=== PATIENT | male | born 1965 | race Caucasian/White ===

== ENCOUNTER 2019-11-28 19:29 | Emergency (ER) | payer OTHER, SELFPAY ==
[2019-11-28 20:14] VITALS: BP 147/88; PULSE 114; RESP 20; TEMP 39.8; O2SAT 100
--- NOTE | 2019-11-28 20:31 | ED.URI ---
HPI - URI/Sore Throat General Chief Complaint: Upper Respiratory Infection Stated Complaint: cough/fever/chills/body aches Time Seen by Provider: 11/28/19 20:31 Source: patient and RN notes reviewed Mode of arrival: ambulatory Limitations: no limitations History of Present Illness HPI Narrative: 54 year old male presents with concern for fever, chills, body aches, cough that started today. Denies taking any [id number] medications for his symptoms. MD elicited complaint: cough Related Data Home Medications Medication Instructions Recorded Confirmed lansoprazole [Prevacid] 30 mg PO DAILY 11/28/19 11/28/19 Allergies Allergy/AdvReac Type Severity Reaction Status Date / Time No Known Allergies Allergy Verified 11/28/19 20:31 Review of Systems Review of Systems: Narrative: CONSTITUTIONAL: Reports malaise, chills, sweats, or fever. EYES: Denies visual changes, redness, or discharge. ENT: Reports rhinorrhea. Denies congestion, sinus pain, otalgia and sore throat. CARDIOVASCULAR: Denies chest pain, palpitations, or edema. RESPIRATORY: Reports cough. Denies dyspnea. GASTROINTESTINAL: Denies abdominal pain, nausea, vomiting, diarrhea SKIN: Denies rash or itching. MUSCULOSKELETAL: Denies myalgia. NEUROLOGIC: Denies headache. All systems reviewed & are unremarkable except as noted in HPI and below PMFSH Social History Social History Alcohol intake: never Comments At time of signature, agree with nursing past medical, surgical, social and family history. There is no relevant family history pertinent to the presenting complaint Exam Narrative: Exam Narrative: GENERAL: Nontoxic-appearing, well-nourished, and in no acute distress. HEAD: Normocephalic EYES: PERRLA, conjunctivae clear ENT: Nares clear, turbinates erythematous, clear discharge. Mucous membranes moist. TM pearly moss with dull light reflex bilaterally; no tragal tenderness. Oropharynx not erythematous without lesions. Tonsils not enlarged and without exudate, no drooling, no hoarseness, no trismus, uvula midline. NECK: Supple. No lymphadenopathy CHEST: Clear to auscultation, breath sounds equal. No wheezing, rhonchi, rales, or stridor. No respiratory distress, speaks in full sentences. HEART: Regular rate and rhythm. No murmur heard. Normal peripheral pulses. SKIN: Warm, dry, no rash. NEURO: Alert and oriented x3. PSYCH: Normal mood and affect Course Course Emergency Course: Patient is aware of diagnosis, understands and agrees to treatment plan. Anticipatory guidance given. Patient agrees to follow-up as directed and is aware of reasons to seek care at the emergency department. Portions of this record may have been created with voice recognition software Vital Signs Vital signs: Vital Signs Temperature 103.7 F H 11/28/19 20:14 Pulse Rate 114 H 11/28/19 20:14 Respiratory Rate 20 11/28/19 20:14 Blood Pressure 147/88 H 11/28/19 20:14 Pulse Oximetry 100 11/28/19 20:14 Temperature 103.7 F H 11/28/19 20:14 Pulse Rate 114 H 11/28/19 20:14 Respiratory Rate 20 11/28/19 20:14 Blood Pressure 147/88 H 11/28/19 20:14 Pulse Oximetry 100 11/28/19 20:14 Reviewed. MDM - URI/Sore Throat MDM Narrative Medical decision making narrative: Differential diagnosis considered: Strep pharyngitis, allergic rhinitis, upper respiratory tract infection, sinusitis, rhinosinusitis, nasopharyngitis. viral pharyngitis, otitis media, otitis externa, pneumonia, bronchitis, viral cough syndrome, viral syndrome, and influenza. Exam findings show no acute concerns or changes; patient is non-toxic appearing and is in no distress. Patient is appropriate for outpatient treatment and follow-up. Lab Data Attestation: I reviewed the patient's lab results. Labs: Influenza A Screen Negative Reference Range: Negative Influenza B Screen Negative Reference Range: Negative Strep Screen Presumptive Negative
== END 2019-11-28 20:43 | disposition home or self-care (01) ==
PROVIDERS: Emergency Provider Nurse Practitioner
DX: R05 Cough (principal); R50.9 Fever, unspecified; K21.9 Gastro-esophageal reflux disease without esophagitis
CPT/HCPCS: 87081; 87804; 87880; 99213; G0463

== ENCOUNTER 2020-08-28 06:46 | Outpatient (CLI) | payer OTHER, SELFPAY ==
--- NOTE | ~2020-08-28 | MR_ITS ---
EXAMINATION: MR cervical spine wo con DATE: 08/28/2020 07:42 INDICATION: Left arm weakness. Left arm pain. TECHNIQUE: Magnetic resonance imaging (MRI) of the cervical spine was performed without intravenous c ontrast. Sequences included sagittal T2-weighted FSE, sagittal STIR FSE, sagittal T1-weighted FSE, ax ial MERGE, and axial T2-weighted FSE. COMPARISON: Cervical spine MRI 09/17/2014 FINDINGS: Bone alignment is normal. Vertebral body heights are normal. There is mildly decreased disc height at C5-C6. The spinal cord signal intensity is normal. The following disc levels are specifica lly discussed: C2-C3: The disc does not extend beyond the endplate margin. There is no uncovertebral joint osteoarth ritis. There is severe bilateral facet joint osteoarthritis. There is mild bilateral neural foraminal stenosis. There is no central canal stenosis. C3-C4: The disc does not extend beyond the endplate margin. There is mild bilateral uncovertebral annel nt osteoarthritis. There is moderate right and mild left facet joint osteoarthritis. There is mild bi lateral neural foraminal stenosis. There is no central canal stenosis. C4-C5: The disc does not extend beyond the endplate margin. There is no uncovertebral joint osteoarth ritis. There is moderate right and mild left facet joint osteoarthritis. There is moderate neural for aminal stenosis. There is no central canal stenosis. C5-C6: There is a left central extrusion. There is no uncovertebral joint osteoarthritis. There is mi ld bilateral facet joint osteoarthritis. There is mild left neural foraminal stenosis. There is mild central canal stenosis. C6-C7: The disc is bulging. There is mild bilateral uncovertebral joint osteoarthritis. There is no f acet joint osteoarthritis. There is mild bilateral neural foraminal stenosis. There is mild central c anal stenosis. C7-T1: The disc does not extend beyond the endplate margin. There is no uncovertebral joint osteoarth ritis. There is mild bilateral facet joint osteoarthritis. There is no neural foraminal stenosis. The re is no central canal stenosis. IMPRESSION: 1. Mild cervical spondylosis with interval improvement in the extrusion at C5-C6. Reviewed, dictated and finalized at location A. D WASTE LANDFILL TECHNICIAN IMPRESSION: 1. Mild cervical spondylosis with interval improvement in the extrusion at C5-C 6.
== END 2020-08-28 06:47 | disposition home or self-care (01) ==
PROVIDERS: PCP Family Medicine; Visit Provider Family Medicine
DX: R20.2 Paresthesia of skin (principal); M47.813 Spondylosis without myelopathy or radiculopathy, cervicothoracic region; M48.03 Spinal stenosis, cervicothoracic region; R29.898 Other symptoms and signs involving the musculoskeletal system; M79.602 Pain in left arm
CPT/HCPCS: 72141

== ENCOUNTER 2020-11-04 07:30 | Outpatient (RCR) | payer OTHER, SELFPAY ==
--- NOTE | 2020-09-09 10:14 | PTOPEVAL ---
PHYSICAL THERAPY EVALUATION AND PLAN OF CARE Thank you for referring Eric Bautista to [facility].? The patient is scheduled to be seen for therapy? 1x/week for 4weeks. Please review, sign, date and return this plan of care LETA. I agree with and certify that the following plan of care is medically necessary. Referring Physician Date Attending Provider: Ashley Dougherty, PA Evaluation Outpatient Past Medical History Gastrointestinal History Hx Gastroesophageal Reflux Disease Yes Genitourinary History Hx Other Genitourinary Disorders Yes: vasectomy with reversal Diagnosis left lower arm pain and biceps Onset 4-6 months Subjective Information Eric is here today with left Query Text:As Reported By Patient/ lower arm pain. 4-6 months ago Family there was a mechanism of injury. Pain started in the left biceps and progressed down to the lower part of the arm. States that there can be some numbness and tingling in the left fingers while he is typing and he will have to stop typing. He describes a lot of fatigue in the arm when trying to hold anything in the left arm. Reports he does feel like he has a lot of stress right now causing stiffness around his neck and shoulders Diagnostic Tests Other Tests For This Problem Yes: EMG studies all normal Self Report Pain Assessment Left Arm(s) Reported Pain Level 1 Pain Description Aching Pain Frequency Chronic,Continuous Other Pain Description fatigue to the point of having to stop using Greatest Pain Intensity 8 Other Pain Aggravating Factors using the arm Pain Behaviors None Interventions Used Interventions Used By Clinicians Exercise Cervical and Lumbar ROM Cervical ROM Reason Not Measured WFL/Left,WFL/Right Cervical ROM Comments generally WFL ROM, rotation does demonstrate mild limitation with end range that elicits tightness at base of neck. Upper Extremity Range of Motion General Upper Extremity Range of Motion Reason Not Measured WFL/Left,WFL/Right Gross Upper Extremity Range of Motion generally WFL bilateral Comments shoulders with some stiffness at end range. left elbow pronat
--- NOTE | 2020-10-07 08:26 | PTOPEVAL ---
PHYSICAL THERAPY PLAN OF CARE UPDATE AND PROGRESS REPORT Thank you for referring Eric Bautista to [facility].? The patient is scheduled to be seen for therapy?1x/week for 4 weeks. Please review, sign, date and return this plan of care LETA. I agree with and certify that the following plan of care is medically necessary. Referring Physician Date Attending Provider: Ashley Dougherty, PA Progress Diagnosis left lower arm pain and biceps Onset 4-6 months Subjective Information Eric reports that symptoms are Query Text:As Reported By Patient/ better while the pain is Family still there. He states that he is able to hold his daughter twice as long, but will get fatigue in the left arm and he will switch sides. Self Report Pain Assessment Left Arm(s) Reported Pain Level 1 Pain Description Aching Pain Frequency Chronic,Continuous Other Pain Aggravating Factors using the arm Pain Behaviors None Interventions Used Interventions Used By Clinicians Exercise Upper Extremity Range of Motion General Upper Extremity Range of Motion Reason Not Measured WFL/Left,WFL/Right Gross Upper Extremity Range of Motion generally WFL bilateral Comments shoulders with some stiffness at end range. left elbow pronation symtpoms are resolved, but describes some symptoms at left biceps with supination Upper Extremity Muscle Strength Testing Scapular/Shoulder Bilateral Shoulder Flexion Strength 4 Good Shoulder Abduction Strength 4 Good Shoulder Medial Rotation Strength 4+ Good + Shoulder Lateral Rotation Strength 4+ Good + Elbow/Forearm Right Elbow Flexion Strength 5 Normal Elbow Extension Strength 5 Normal Forearm Pronation Strength 5 Normal Forearm Supination Strength 5 Normal Left Elbow Flexion Strength 4+ Good + Elbow Extension Strength 4+ Good + Forearm Pronation Strength 4+ Good + Forearm Supination Strength 4+ Good + Wrist Strength Right Wrist Flexion Strength 5 Normal Wrist Extension Strength 5 Normal Wrist Strength Comments health promotion officer: 105lb/pressure Left Wrist Flexion Strength 4+ Good + Wrist Extension Strength 4+ Good + Wrist Strength Comments health promotion officer: 95lb/pressure Muscle Length Testing Muscle Length Testing Latissmus Dorsi Muscle Length (R) Mild Tightness,(L) Mild Tightness Levaetor Scapulae Muscle Length (R) Mild Tightness,(L) Mild Tightness Supinator M
--- NOTE | 2020-10-21 07:46 | PCPTNOTE ---
Patient called & cancelled scheduled appointment this date. No reason provided on voicemail.
--- NOTE | 2020-11-04 08:18 | PTOPEVAL ---
PHYSICAL THERAPY DISCHARGE NOTE Thank you for referring Eric Bautista to [facility].? Please review, sign, date and return this plan of care LETA. I agree with and certify that the following plan of care is medically necessary. Referring Physician Date Attending Provider: Ashley Dougherty, PA Discharge Diagnosis left lower arm pain and biceps Onset 4-6 months Subjective Information Eric reports that he is doing Query Text:As Reported By Patient/ very well. He uses his HEP Family well and is independent with the HEP. Self Report Pain Assessment Left Arm(s) Reported Pain Level 0 Interventions Used Interventions Used By Clinicians Exercise,Manual Therapy Techniques Upper Extremity Range of Motion General Upper Extremity Range of Motion Reason Not Measured WFL/Left,WFL/Right Gross Upper Extremity Range of Motion generally WFL bilateral Comments shoulders with some stiffness at end range. left elbow pronation symtpoms are resolved, but describes some symptoms at left biceps with supination at very end range Upper Extremity Muscle Strength Testing Scapular/Shoulder Bilateral Shoulder Flexion Strength 5 Normal Shoulder Abduction Strength 5 Normal Shoulder Medial Rotation Strength 5 Normal Shoulder Lateral Rotation Strength 5 Normal Shoulder Strength Comments left shoulder abduction: 4+/5 Elbow/Forearm Right Elbow Flexion Strength 5 Normal Elbow Extension Strength 5 Normal Forearm Pronation Strength 5 Normal Forearm Supination Strength 5 Normal Left Elbow Flexion Strength 5 Normal Elbow Extension Strength 5 Normal Forearm Pronation Strength 5 Normal Forearm Supination Strength 5 Normal Wrist Strength Right Wrist Flexion Strength 5 Normal Wrist Extension Strength 5 Normal Wrist Strength Comments quantitative equity head: 105lb/pressure Left Wrist Flexion Strength 5 Normal Wrist Extension Strength 5 Normal Wrist Strength Comments quantitative equity head: 95lb/pressure PT Clinical Summary Eric is a 54 yo male presenting to outpatient physical therapy with left arm pain and decreased function. Eric demonstrates normal wrist and quantitative equity head strength for non-dominate side as well as normal ROM. He does have a mild limitation in left supination at very
== END 2020-11-04 11:54 | disposition home or self-care (01) ==
LOC: ANHPT 07:30
PROVIDERS: PCP Family Medicine; Visit Provider Physician Assistant
DX: M54.2 Cervicalgia (principal); M79.602 Pain in left arm; R20.2 Paresthesia of skin; R29.898 Other symptoms and signs involving the musculoskeletal system
CPT/HCPCS: 97110; 97140; 97162

== ENCOUNTER 2021-12-02 15:09 | Outpatient (CLI) | payer OTHER, SELFPAY ==
--- NOTE | ~2021-12-02 | US_ITS ---
EXAMINATION: US soft tissue head and neck DATE: 12/02/2021 15:31 INDICATION: Right-sided nontender neck mass TECHNIQUE: Multiple grayscale and Doppler ultrasound images of the region of concern at the right nec k were obtained. COMPARISON: Cervical spine MR dated 08/28/2020 FINDINGS: 4.0 x 2.9 x 2.3 cm very hypoechoic mass with internal vascularity on color Doppler located along the right jugular chain at the site of a prior normal-sized lymph node which previously measured 9 x 9 mm . There is no evident central fatty hilum. There is a second smaller 14 x 8 x 7 mm hypoechoic lymph n ode which remains within normal limits with small central echogenic hilum abutting the inferior ryan n of the larger mass and which is minimally changed since the prior study at which time it measured 1 2 x 8 mm. IMPRESSION: 1. 4.0 x 2.9 x 2.3 cm mass in the right neck, likely an enlarged jugular chain lymph node which is gonzalez spicious for lymphoma or other metastatic disease. Recommend ultrasound-guided core needle biopsy. Reviewed, dictated and finalized at location A. NT ENGINEER IMPRESSION: 1. 4.0 x 2.9 x 2.3 cm mass in the right neck, likely an enlarged jugular chain lymph node which is suspicious for lymphoma or other metastatic disease. Recomm end ultrasound-guided core needle biopsy.
== END 2021-12-02 15:10 | disposition home or self-care (01) ==
PROVIDERS: PCP Family Medicine; Visit Provider Family Medicine
DX: R22.1 Localized swelling, mass and lump, neck (principal)
CPT/HCPCS: 76536

== ENCOUNTER 2021-12-12 09:03 | Outpatient (CLI) | payer OTHER, SELFPAY ==
--- NOTE | ~2021-12-12 | US_ITS ---
EXAMINATION: US biopsy lymph node DATE: 12/12/2021 10:03 INDICATION: Right cervical lymphadenopathy TECHNIQUE: The procedure including the risks and benefits was discussed with the patient. Risks discu ssed included bleeding and infection. The patient understood the risks and agreed to proceed. The sk in overlying the right neck was prepped and draped in usual sterile fashion. Anesthetic was administ ered with 1% lidocaine subcutaneously. An 18 gauge core biopsy needle was advanced under continuous ultrasound observation to the lesion of interest. 6 core biopsy specimens were obtained, 3 placed in formalin and 4 in RPMI media. The needle was removed and the entry site was cleaned and dressed. P ost procedure ultrasound demonstrated no hemorrhage. FINDINGS: Ultrasound images demonstrate a 3.2 x 3.2 x 2.1 cm diffusely hyperechoic right cervical lym ph node with no discernible central fatty hilum which is suspicious for lymphoma or metastatic diseas e. Subsequent images demonstrate the biopsy needle advanced into the lymph node.. IMPRESSION: 1. Successful Ultrasound-guided biopsy of a 3.2 x 3.2 x 2.1 cm enlarged right cervical lymph node. Reviewed, dictated and finalized at location A. IMPRESSION: 1. Successful Ultrasound-guided biopsy of a 3.2 x 3.2 x 2.1 cm enlarged right c ervical lymph node.
== END 2021-12-12 09:04 | disposition home or self-care (01) ==
LOC: ANHIMG 09:04
PROVIDERS: PCP Family Medicine; Visit Provider Family Medicine
DX: C77.0 Secondary and unspecified malignant neoplasm of lymph nodes of head, face and neck (principal)
CPT/HCPCS: 38505; 76942; 88184; 88185; 88305; 88342

== ENCOUNTER 2022-01-15 22:39 | Emergency (ER) | payer OTHER, SELFPAY ==
[2022-01-15 22:42] VITALS: BP 178/105; PULSE 111; RESP 22; TEMP 36.2; O2SAT 100
--- NOTE | 2022-01-15 22:55 | ED.GENADULT ---
HPI - General Adult General Chief complaint: Unspecified Stated complaint: vomiting blood Time Seen by Provider: 01/15/22 22:48 Source: patient Mode of arrival: ambulatory Limitations: no limitations History of Present Illness HPI narrative: Patient is a 56-year-old male complaining of vomiting blood after he was constipated, strained and felt like there was blood dripping in his throat and when he did spit it was bright red blood. 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 Patient denies any chest pain, shortness of breath, abdominal pain, melena, hematochezia, fever or chills. Surgery was done by Dr. Lee. Related Data Home Medications Medication Instructions Recorded Confirmed amoxicillin-pot clavulanate 1 tablet PO BID 01/15/22 ibuprofen 600 mg PO Q6H PRN 01/15/22 ondansetron [Zofran ODT] 4 mg PO Q8H PRN 01/15/22 oxycodone 5 mg PO Q4H PRN 01/15/22 pantoprazole 40 mg PO QAM 01/15/22 scopolamine base 1 patch TOPICAL Q3D PRN 01/15/22 Allergies Allergy/AdvReac Type Severity Reaction Status Date / Time No Known Allergies Allergy Verified 01/15/22 23:19 Review of Systems Review of Systems: All systems reviewed & are unremarkable except as noted in HPI and below Constitutional: Constitutional: Denies body ache(s), Denies chills, Denies excessive sweating, Denies fatigue, Denies fever(s), Denies headache(s), Denies lethargy, Denies malaise, Denies weakness and Denies weight loss Eyes: Eyes: Denies blurry vision, Denies change in vision and Denies loss of vision ENT: Denies dizziness, Denies ear discharge, Denies headache(s), Denies lip swelling, Denies epistaxis, Denies nasal congestion, Denies neck pain, Denies throat swelling and Denies tongue swelling Cardiovascular: Cardiovascular: Denies chest pain, Denies chest pain at rest, Denies chest pain with activity, Denies diaphoresis, Denies rapid heart rate, Denies edema, Denies irregular heart rhythm, Denies lightheadedness, Denies palpitations, Denies dyspnea and Denies dyspnea on exertion Respiratory: Respiratory: Denies chest congestion, Denies cough, Denies hemoptysis, Denies dyspnea and Denies dyspnea on exertion Gastrointestinal: Gastrointestinal: Denies abdominal pain, Denies melena, Denies hematochezia and Denies diarrhea Musculoskeletal: Musculoskeletal: Denies abnormal gait, Denies deformity, Denies joint swelling, Denies limited range of motion, Denies neck pain and Denies numbness Neurologic: Denies Abnormal speech present, Denies abnormal gait, Denies confusion, Denies dizziness, Denies headache(s), Denies focal weakness, Denies loss of vision, Denies numbness, Denies Other visual disturbances, Denies Sensory deficit (Neuro) and Denies weakness Psychiatric: Psychiatric: Denies confusion, Denies depression, Denies auditory hallucinations, Denies homicidal ideation and Denies suicidal ideation Endocrine: Endocrine: Denies cold intolerance, Denies excessive sweating, Denies fatigue, Denies heat intolerance and Denies palpitations Hematologic/Lymphatic: Hematologic/Lymphatic: Denies easy bleeding and Denies easy bruising Allergic/Immunologic: Allergic/Immunologic: Denies lip swelling, Denies throat swelling and Denies tongue swelling [facility] Social History Social History Alcohol intake: never Comments Past medical history: Head and neck cancer Family history: Unknown Social history: Non-smoker no EtOH or drug use Exam Const: General: cooperative, well developed, alert and awake; No confusion Orientation/consciousness: oriented to person, oriented to place, oriented to time, patient oriented x3 and No confusion Limitations: no limitations Other: Moderate distress HENMT: Head: normal to inspection, normocephalic and atraumatic Ears: hearing grossly normal bilaterally, TM normal on the right and TM normal on the
[2022-01-15 23:10] LABS: Basophils Absolute Auto 0.1 K/mm3 (0.0-0.1); Basophils Percent Auto 0.4 % (0.2-1.2); Eosinophils Absolute Auto 0.2 K/mm3 (0-0.3); Eosinophils Percent Auto 1.4 % (0-4.4); Hematocrit 45.7 % (42.0-52.0); Hemoglobin 14.9 g/dL (14.0-18.0); Immature Granulocyte Absolute 0.33 K/mm3 (0.00-0.031); Immature Granulocyte Percent A 2.3 % (0-0.5); Lymphocytes Absolute Auto 1.59 K/mm3 (0.9-3.2); Mean Corpuscular HGB Conc 32.6 g/dl (32-36); Mean Corpuscular Volume 98.1 fl (80-100); Mean Platelet Volume 9.8 fl (7.4-10.4); Monocytes Absolute Auto 1.1 K/mm3 (0.1-0.6); Monocytes Percent Auto 7.6 % (2.6-8.5); Neutrophils Absolute Auto 11.1 K/mm3 (1.3-6.7); Neutrophils Percent Auto 77.3 % (45.5-73.1); Platelet Count Result 349 k/mm3 (150-375); Red Blood Count 4.66 M/mm3 (4.6-6.20); Red Cell Distribution Width 12.6 % (11.5-14.5); White Blood Count 14.4 K/mm3 (4.5-10.0)
[2022-01-15] MEDS: SODIUM CHLORIDE 0.9% IV 1,000 ML 999 ML IV CONT (23:10)
[2022-01-15 23:14] VITALS: BP 110/86; PULSE 79; RESP 20; O2SAT 98
[2022-01-15 23:28] LABS: Alanine Aminotransferase 69 U/L (4-50); Albumin Level 4.4 g/dL (3.5-5.1); Alkaline Phosphatase 98 U/L (38-126); Anion Gap 7 mmol/L (8-16); Aspartate Amino Transferase 54 U/L (17-59); Bilirubin,Total 0.8 mg/dL (0.2-1.3); Blood Urea Nitrogen 24 mg/dL (9-20); Calcium 8.6 mg/dL (8.4-10.2); Carbon Dioxide 26 mmol/L (22-30); Chloride 101 mmol/L (98-107); Estimated CRCL calculation 98 ml/min; Estimated Glomerular Filt Rate > 60; Glucose 106 mg/dL (65-110); INR 1.1; Potassium 4.7 mmol/L (3.4-5.0); Prothrombin Time 13.6 Seconds (11.1-14.7); Sodium 134 mmol/L (137-145)
[2022-01-15 23:29] LABS: Partial Thromboplastin Time 27.7 SECONDS (22.3-36.8)
[2022-01-15] MEDS: PANTOPRAZOLE SODIUM IV 40 MG VIAL 80 MG IV PUSH (23:30)
[2022-01-15] MEDS: PROMETHAZINE HCL 25 MG/ML AMPUL 12.5 MG IV PUSH (23:35)
[2022-01-16 00:29] VITALS: BP 162/102; PULSE 62; RESP 20; O2SAT 98
[2022-01-16 00:30] VITALS: PULSE 64
[2022-01-16 01:16] VITALS: BP 175/102; PULSE 59; RESP 14; O2SAT 97
[2022-01-16 01:27] VITALS: BP 163/91; PULSE 72; RESP 14; O2SAT 98
== END 2022-01-16 01:46 | disposition short-term general hospital (02) ==
LOC: ANHED 23:37
PROVIDERS: Emergency Provider Emergency Medicine; PCP Family Medicine
DX: K92.0 Hematemesis (principal); C76.0 Malignant neoplasm of head, face and neck
CPT/HCPCS: 36415; 80053; 85025; 85610; 85730; 96361; 96374; 96375; 99285; C9113; J2550; J7030

== ENCOUNTER 2022-08-25 18:39 | Emergency (ER) | payer OTHER, SELFPAY ==
[2022-08-25 18:46] VITALS: BP 120/78; PULSE 98; RESP 20; TEMP 36.6; O2SAT 100
--- NOTE | 2022-08-25 20:03 | ED.URI ---
HPI - URI/Sore Throat General Chief Complaint: Upper Respiratory Infection Stated Complaint: Sore Throat,Congestion Time Seen by Provider: 08/25/22 19:57 Source: patient Mode of arrival: ambulatory Limitations: no limitations History of Present Illness HPI Narrative: Patient presents today complaining of chills, fever up to 101.1, congestion, pressure, itchy throat since yesterday. Currently rates pain 4/10 and has been taking ibuprofen without relief. History of throat cancer and lymph node removal as well as tonsil removal. Related Data Home Medications Medication Instructions Recorded Confirmed pantoprazole 40 mg tablet,delayed 40 mg PO QAM 01/15/22 08/25/22 release Allergies Allergy/AdvReac Type Severity Reaction Status Date / Time No Known Allergies Allergy Verified 08/25/22 18:45 Review of Systems Review of Systems: CONSTITUTIONAL: Denies body aches, or sweats.+ fever, chills EYES: Denies visual changes, redness, or discharge. ENT: Denies rhinorrhea, congestion or otalgia.+ Itchy throat, nasal congestion and sinus pressure CARDIOVASCULAR: Denies chest pain, palpitations, or edema. RESPIRATORY: Denies cough or dyspnea. GASTROINTESTINAL: Denies abdominal pain, nausea, vomiting, or diarrhea. GENITOURINARY: Denies dysuria or hematuria. SKIN: Denies rash, itching, or wounds. MUSCULOSKELETAL: Denies back pain, joint pain, or myalgia. NEUROLOGIC: Denies headache, numbness, tingling, or weakness. PSYCH: Denies depression or anxiety. PMFSH Past Medical History Medical History (Updated 08/25/22 @ 20:06 by Iliana Browning, NCR OPERATOR, ) Throat cancer Surgical History Surgical History (Updated 08/25/22 @ 20:04 by Iliana Browning, NCR OPERATOR, ) Hx of tonsillectomy Social History Social History Alcohol intake: never Comments At time of signature, I have reviewed and agree with nursing past medical, surgical, social and family history unless otherwise noted. Please see nursing chart for further information. There is no relevant family history pertinent to the presenting complaint Exam Narrative: GENERAL: ill-appearing, well-nourished, and in no acute distress. HEAD: Normocephalic, atraumatic. EYES: EOMI. No redness or drainage. Conjunctivae normal. ENT: Mucous membranes pink and moist. Nares congested with rhinorrhea. TMs normal bilaterally. Throat erythematous with mild edema. No exudate. Uvula midline. NECK: Normal AROM. Supple. CHEST: No respiratory distress. Clear to auscultation. HEART: Regular rate and rhythm. No murmur appreciated. Normal peripheral pulses. EXTREMITIES: Normal range of motion. No edema. SKIN: Warm, dry, no rash. Capillary refill normal. Normal skin turgor. NEURO: No focal deficits. Alert and oriented x3. Gait steady. PSYCH: Normal affect. No signs of depression or anxiety. Course Course Level of Care: Express Care Visit Vital Signs Vital signs: Vital Signs Temperature 97.8 F 08/25/22 18:46 Pulse Rate 98 08/25/22 18:46 Respiratory Rate 20 08/25/22 18:46 Blood Pressure 120/78 08/25/22 18:46 Pulse Oximetry 100 08/25/22 18:46 Oxygen Delivery Room Air 08/25/22 18:46 Temperature 97.8 F 08/25/22 18:46 Pulse Rate 98 08/25/22 18:46 Respiratory Rate 20 08/25/22 18:46 Blood Pressure 120/78 08/25/22 18:46 Pulse Oximetry 100 08/25/22 18:46 Oxygen Delivery Room Air 08/25/22 18:46 reviewed MDM - URI/Sore Throat Differential Diagnosis Differential diagnosis: Likely upper respiratory infection, sinusitis, viral infection, influenza, pharyngitis and other ( strep throat) Lab Data Attestation: I reviewed the patient's lab results. Labs: Influenza A Screen Negative Reference Range: Negative Influenza B Screen Negative Reference Range: Negat
== END 2022-08-25 20:08 | disposition home or self-care (01) ==
PROVIDERS: Emergency Provider Nurse Practitioner; PCP Family Medicine
DX: J02.0 Streptococcal pharyngitis (principal)
CPT/HCPCS: 87804; 87880; 99213; G0463

== ENCOUNTER 2023-01-27 19:24 | Emergency (ER) | payer OTHER, SELFPAY ==
--- NOTE | ~2023-01-27 | XR_ITS ---
EXAMINATION: XR chest 2V Exam Date/Time: 01/27/2023 19:45 CDT HISTORY: cough, congestion 5x days non smoker hx asthma Comparison: 10/31/2015. RESULT: Lines, tubes, and devices: Surgical clips in the right lower neck. Lungs and pleura: Streaky perihilar opacities with cuffing. Cardiomediastinal silhouette: Stable. Other: No acute osseous or upper abdominal finding. IMPRESSION: Pulmonary opacities may represent bronchiolitis, as can be seen with atypical infection, asthma, aspi ration, and small airways disease. Reviewed, dictated and finalized at location [facility]. IMPRESSION: Pulmonary opacities may represent bronchiolitis, as can be seen with atypical i nfection, asthma, aspiration, and small airways disease.
[2023-01-27 19:35] VITALS: BP 148/89; PULSE 66; RESP 18; TEMP 36.1; O2SAT 99
--- NOTE | 2023-01-27 19:43 | ED.URI ---
HPI - URI/Sore Throat General Chief Complaint: Upper Respiratory Infection Stated Complaint: congestion,cough Time Seen by Provider: 01/27/23 19:44 Source: patient Mode of arrival: ambulatory Limitations: no limitations History of Present Illness HPI Narrative: Patient is a 57-year-old male that presents with cough, congestion, fatigue, fever and chills for 5 days. Reports cough has been productive. Also reports coughing fits where it is hard for him to take a deep breath in between coughing. Patient has been taking a daily Claritin and Motrin for fever. States he has seasonal allergies but they were never this bad. Reports children have similar symptoms. History of throat cancer, lymph nodes on right side of neck removed along with back of tongue. Did not receive chemo. Has been cancer free for 1 year. Denies any headache, nausea, vomiting, diarrhea. Related Data Home Medications Medication Instructions Recorded Confirmed pantoprazole 40 mg tablet,delayed 40 mg PO QAM 01/15/22 01/27/23 release Allergies Allergy/AdvReac Type Severity Reaction Status Date / Time No Known Allergies Allergy Verified 01/27/23 19:38 Review of Systems Review of Systems: All systems reviewed & are unremarkable except as noted in HPI and below Constitutional: Constitutional: Denies body ache(s), Reports chills, Reports fatigue, Reports fever(s), Denies headache(s), Denies malaise and Denies weakness Eyes: Eyes: Denies blurry vision, Denies itchy eyes and Denies loss of vision ENT: Denies otalgia, Denies headache(s), Reports nasal congestion, Denies sinus pain and Denies sore throat Cardiovascular: Cardiovascular: Denies chest pain, Denies irregular heart rhythm and Denies dyspnea Respiratory: Respiratory: Reports cough and Denies dyspnea Gastrointestinal: Gastrointestinal: Denies abdominal pain, Denies diarrhea, Denies nausea and Denies vomiting Musculoskeletal: Musculoskeletal: Denies back pain, Denies myalgias and Denies arthralgias Integumentary/Breasts: Skin/Breast: Denies pruritus and Denies rash Neurologic: Denies headache(s), Denies loss of vision and Denies weakness Psychiatric: Psychiatric: Reports no additional psychiatric complaints Endocrine: Endocrine: Denies fatigue Allergic/Immunologic: Allergic/Immunologic: Denies itchy eyes PMFSH Past Medical History Medical History (Updated 01/27/23 @ 20:06 by Rena Ceja APRN) Throat cancer Surgical History Surgical History (Updated 08/25/22 @ 20:04 by Iliana Browning, [facility], ) Hx of tonsillectomy Social History Social History Alcohol intake: never Comments At time of signature, agree with nursing past medical, surgical, social and family history. There is no relevant family history pertinent to the presenting complaint. Exam Const: General: cooperative, healthy appearing, comfortable, no acute distress and well nourished Nutritional Appearance: well nourished Orientation/consciousness: patient oriented x3 Limitations: no limitations HENMT: Head: normal to inspection, normocephalic and atraumatic Ears: hearing grossly normal bilaterally, external ears normal, TM's normal bilaterally, EAC's normal and no periauricular adenopathy Face/Nose/Sinus: Normal external nose present, Abnormal mucous membranes and turbinates present erythematous bilateral and diffuse, normal facial exam, sinuses nontender and face symmetric Face and sinus: normal facial exam, sinuses nontender and face symmetric Mouth: Yes Normal oral and palatal mucosa present, Yes lip normal, Yes tongue normal, Yes Normal salivary glands and ducts present, Yes oropharynx normal and Yes moist mucous membranes Teeth and gingiva: dentition normal Throat: posterior oropharynx normal, uvula midline, postnasal drainage and tonsils absent Eyes: General: appearance normal, both eyes and all related structures Alignment and Position:
== END 2023-01-27 20:29 | disposition home or self-care (01) ==
PROVIDERS: Emergency Provider Nurse Practitioner Family; PCP Family Medicine
DX: J32.9 Chronic sinusitis, unspecified (principal); J40 Bronchitis, not specified as acute or chronic; Z85.818 Personal history of malignant neoplasm of other sites of lip, oral cavity, and pharynx
CPT/HCPCS: 71046; 99213; G0463

== ENCOUNTER 2023-08-09 07:04 | Outpatient (CLI) | payer OTHER, SELFPAY ==
[2023-08-09 07:51] LABS: Basophils Percent Auto 0.6 % (0.2-1.2); Eosinophils Absolute Auto 0.1 K/mm3 (0-0.3); Eosinophils Percent Auto 2.4 % (0-4.4); Hematocrit 45.1 % (42.0-52.0); Hemoglobin 14.5 g/dL (14.0-18.0); Immature Granulocyte Absolute 0.03 K/mm3 (0.00-0.031); Immature Granulocyte Percent A 0.6 % (0-0.5); Lymphocytes Absolute Auto 0.94 K/mm3 (0.9-3.2); Lymphocytes Percent Auto 17.3 % (18.3-44.2); Mean Corpuscular HGB Conc 32.2 g/dl (32-36); Mean Corpuscular Hemoglobin 31.4 pg (26-34); Mean Corpuscular Volume 97.6 fl (80-100); Mean Platelet Volume 9.9 fl (7.4-10.4); Monocytes Absolute Auto 0.5 K/mm3 (0.1-0.6); Monocytes Percent Auto 8.3 % (2.6-8.5); Neutrophils Absolute Auto 3.9 K/mm3 (1.3-6.7); Neutrophils Percent Auto 70.8 % (45.5-73.1); Platelet Count Result 266 k/mm3 (150-375); Red Blood Count 4.62 M/mm3 (4.6-6.20); Red Cell Distribution Width 12.7 % (11.5-14.5); White Blood Count 5.4 K/mm3 (4.5-10.0)
[2023-08-09 07:59] LABS: Anion Gap 12 mmol/L (8-16); Blood Urea Nitrogen 13 mg/dL (9-20); Calcium 9.3 mg/dL (8.4-10.2); Carbon Dioxide 25 mmol/L (22-30); Chloride 103 mmol/L (98-107); Cholesterol 215 mg/dL (0-200); Estimated Glomerular Filt Rate > 60; Glucose 114 mg/dL (65-110); HDL Direct 33 mg/dL; Potassium 4.1 mmol/L (3.4-5.0); Sodium 140 mmol/L (137-145); Triglycerides 101 mg/dL (<150)
[2023-08-09 08:10] LABS: LDL Cholesterol Direct 138 mg/dL
[2023-08-09 08:30] LABS: Prostate Specific Antigen 0.3 ng/mL (< OR = 4.0)
== END 2023-08-09 07:05 | disposition home or self-care (01) ==
PROVIDERS: PCP Family Medicine; Visit Provider Family Medicine
DX: Z13.1 Encounter for screening for diabetes mellitus (principal); Z13.0 Encounter for screening for diseases of the blood and blood-forming organs and certain disorders involving the immune mechanism; Z13.220 Encounter for screening for lipoid disorders; Z12.5 Encounter for screening for malignant neoplasm of prostate
CPT/HCPCS: 36415; 80048; 80061; 84153; 85025; G0103

== ENCOUNTER 2024-11-01 14:14 | Emergency (ER) | payer OTHER, SELFPAY ==
[2024-11-01 14:29] VITALS: BP 146/77; PULSE 64; RESP 18; TEMP 36.6; O2SAT 97
--- NOTE | 2024-11-01 14:54 | ED.URI ---
HPI - URI/Sore Throat General Chief Complaint: Upper Respiratory Infection Stated Complaint: fever and chills Time Seen by Provider: 11/01/24 14:54 Source: patient and RN notes reviewed Mode of arrival: ambulatory Limitations: no limitations History of Present Illness HPI Narrative: 58-year-old male presented for complaint of headache, body aches, sinus congestion, cough, fever/chills. Sudden onset yesterday. Denies sob, wheezing, n/v/d. Taking Tylenol. MD elicited complaint: cough Related Data Home Medications ?Medication ?Instructions ?Recorded ?Confirmed ?Last Taken ?Type pantoprazole 40 mg tablet,delayed 40 mg PO QAM 01/15/22 01/27/23 Unknown History release Allergies Allergy/AdvReac Type Severity Reaction Status Date / Time No Known Allergies Allergy Verified 11/01/24 14:47 Review of Systems Review of Systems: CONSTITUTIONAL: Endorses malaise, chills, sweats, fever EYES: Denies visual changes, redness, or discharge ENT: Reports rhinorrhea, congestion, otalgia, sore throat CARDIOVASCULAR: Denies chest pain, palpitations, edema RESPIRATORY: Reports cough, post nasal drainage. Denies dyspnea GASTROINTESTINAL: Denies abdominal pain, nausea, vomiting, diarrhea MUSCULOSKELETAL: Endorses myalgia PMFSH Past Medical History Medical History Throat cancer Surgical History Surgical History Hx of tonsillectomy Social History Social History Alcohol intake: never Exam Narrative: GENERAL: Mildly Ill-appearing, nontoxic no acute distress. HEAD: Normocephalic EYES: conjunctivae clear ENT: Mucous membranes moist. TM pearly moss with dull light reflex bilaterally; no tragal tenderness. no drooling, no hoarseness, no trismus, uvula midline. No tripod positioning, muffled voice, soft palate or pharyngeal wall bulging NECK: Supple. No lymphadenopathy CHEST: Clear to auscultation, breath sounds equal. No wheezing, rhonchi, rales, or stridor. No respiratory distress, speaks in full sentences. HEART: Regular rate and rhythm. No murmur heard. SKIN: Warm, dry, no rash. NEURO: Alert and oriented x3. PSYCH: Normal mood and affect Course Course Emergency Course: Patient is aware of diagnosis, understands and agrees to treatment plan. Anticipatory guidance given. Patient agrees to follow-up as directed and is aware of reasons to seek care at the emergency department. Portions of this record may have been created with voice recognition software Level of Care: Express Care Visit Vital Signs Vital signs: Vital Signs Temperature 97.9 F 11/01/24 14:29 Pulse Rate 64 11/01/24 14:29 Respiratory Rate 18 11/01/24 14:29 Blood Pressure 146/77 H 11/01/24 14:29 Pulse Oximetry 97 11/01/24 14:29 Oxygen Delivery Room Air 11/01/24 14:29 Temperature 97.9 F 11/01/24 14:29 Pulse Rate 64 11/01/24 14:29 Respiratory Rate 18 11/01/24 14:29 Blood Pressure 146/77 H 11/01/24 14:29 Pulse Oximetry 97 11/01/24 14:29 Oxygen Delivery Room Air 11/01/24 14:29 reviewed MDM - URI/Sore Throat MDM Narrative Medical decision making narrative: Positive COVID. Discussed physical exam findings. Advised supportive measures and signs/symptoms to go to the ER. Pt is appropriate for outpt treatment and f/u. Differential Diagnosis Differential diagnosis: Likely upper respiratory infection, sinusitis and viral infection Discharge Plan Discharge Clinical Impression: COVID-19 Patient Disposition: Home, Self-Care Condition: Stable Instructions: COVID-19 (Coronavirus Disease 2019) (ED) Additional Instructions: Your rapid COVID test was positive today. The following updated recommendations have been made by the CDC and local Health Departments, regarding COVID-19: - When people get sick with a respiratory virus, they stay home and away from others. - Return to normal activities when, for at least 24 hours, symptoms are improving overall, and if a fever was present, it has been gone without use of a fever-reducing medication. - Once people resume normal activities, they are encouraged to take additional prevention strategies for the next 5 days to curb disease spread, such as taking more steps for [employer] cleaner air, enhancing hygiene practices, wearing a well-fitting mask, keeping a distance from others, and/or getting tested for respiratory viruses. - Enhanced precautions are especially important to protect those most at risk for severe illness, including those over 65 and people with weakened immune systems. Rest, stay hydrated. Tylenol and ibuprofen every 8 hours as needed Flonase/nasal spray, Zyrtec, cough syrup cold/flu medications for symptoms as needed Follow up with your primary care provider, call to schedule an appointment. Go to the ER for worsening symptoms or concerns. Patient Language: Nepali Prescriptions: No Action prednisone 20 mg tablet See Rx Instructions .ROUTE .COMPLEX Qty: 9 0RF Rx Instructions: 40 mg daily x3 days, 20 mg daily x3 days pantoprazole 40 mg Tablet,Delayed Release (Dr/Ec) 40 mg PO QAM Follow-up/Referrals: Will,Jonathan Hernández MD [Primary Care Provider] -
--- OUTSIDE RECORDS SUMMARY | 2024-11-01 15:08 | XMS_ITS | Referral Summary ---
Author Organization [address] Address [address] [address] Care Team Providers Care Cotton Presser Name Role Phone Jonathan Solis MD Primary Care Provid er OppeltNicolás MD Unavailable [phone] David Lee MD Unavailable [phone] Encounters Date Type Department Care Team Description 10/17/2024 Orders Only [facility] Department of Otolaryngology Head-Neck Division [address] [place] [address] [address] [place] [address] Fany Shi PA Oropharynx cancer (CMS/HCC) (HCC) (Primary Dx) 10/06/2024 1:42 PM CHOKE SETTER - 10/06/2024 11:59 PM CHOKE SETTER Hospital Encounter [facility] [address] [place] [phone] Enlarged lymph node Discharge Disposition: Discharge to home or self care 10/05/2024 Telephone [facility] Radiology [address] [place] [address] Reema Centeno RN 10/05/2024 Telephone [facility] Department of Otolaryngology Head-Neck Division [address] [place] [address] 5 [place] [address] Meghan Griggs RN 10/05/2024 Orders Only [facility] Department of Otolaryngology Head-Neck Division [address] [place] [phone] Fany Shi PA Enlarged lymph node (Primary Dx) 10/04/2024 11:45 AM CHOKE SETTER - 10/04/2024 11:59 PM CHOKE SETTER Hospital Encounter [facility] [address] [place] [address] Enlarged lymph node Discharge Disposition: Discharge to home or self care 10/04/2024 Telephone [facility] [address] [phone] Jonathan Solis MD Referral Request 10/03/2024 Orders Only [facility] Department of Otolaryngology Head-Neck Division [address] [place] [phone] Fany Shi PA Enlarged lymph node (Primary Dx) 10/02/2024 Telephone [facility] Department of Otolaryngology Head-Neck Division [address] [place] [phone] Meghan Griggs RN 10/02/2024 Orders Only [facility] Department of Otolaryngology Head-Neck Division [address] [place] [phone] Fany Shi PA Enlarged lymph node (Primary Dx) 09/28/2024 12:45 PM CHOKE SETTER Office Visit [address] [phone] Patrizia Weems PA Neck mass (Primary Dx); Upper respiratory tract infection, unspecified type; Elevated blood pressure reading 09/28/2024 Nurse Triage [address] [phone] Jonathan Solis MD 08/14/2024 9:29 AM CHOKE SETTER - 08/14/2024 11:59 PM CHOKE SETTER Hospital Encounter [facility] ([facility]) [address] [place] [phone] Primary cancer of oropharynx (CMS/HCC) (HCC); Secondary malignant neoplasm lymph nodes of head, face and neck (HCC) Discharge Disposition: Discharge to home or self care 08/14/2024 8:20 AM CHOKE SETTER Office Visit [facility] Department of Otolaryngology Head-Neck Division [address] [facility] [address] [place] [address] Fany Shi PA Primary cancer of oropharynx (CMS/HCC) (HCC) (Primary Dx); Cancer, face (HCC); Secondary malignant neoplasm lymph nodes of head, face and neck (HCC) 08/14/2024 7:14 AM CHOKE SETTER - 08/14/2024 11:59 PM CHOKE SETTER Hospital Encounter [facility] [address] [place] [phone] Primary cancer of oropharynx (CMS/HCC) (HCC) Discharge Disposition: Discharge to home or self care 08/03/2024 Telephone [facility] [address] [place] [phone] Jonathan Solis MD Referral Request from Last 3 Months Allergies No known active allergies Medications cholecalciferol, vitamin D3, (VITAMIN D3 ORAL) Take 10,000 Units by mouth every morning Active multivit-min/rafael alden fumarate (MULTI VITAMIN ORAL) Take 1 tablet by mouth every morning Active pantoprazole DR (PROTONIX) 40 mg EC tabletIndication s:Gastro-esophag eal reflux disease without esophagitis TAKE 1 TABLET DAILY 90 tablet 3 4 Active meloxicam (MOBIC) 15 mg tabletIndication s:Bilateral foot pain TAKE 1 TABLET DAILY 90 tablet 3 4 Active amoxicillin-clav ulanate (AUGMENTIN) 875-125 mg per tablet Take 1 tablet by mouth 2 (two) times a day for 10 days 20 tablet 5 10/08/19 25 Active Problems Problem Noted Date Diagnosed Date Primary cancer of oropharynx (CMS/HCC) 2 Cancer Staging:Pathologic stage from 02/05/2022:Stage I(pT1, pN1, cM0, p16+) - Signed by Amanda Pittman MD on 02/05/2022 Neck mass 12/29/2021 Overview (01/16/2022): NAME OF PROCEDURE (Puram 01/09/2022): 1. Right neck dissection, levels II-IV 2. Right robotic-assisted oropharyngeal resection (right radical tonsillectomy, GT sulcus and BOT resection) 3. Left extra-capsular tonsillectomy 4. Right major vessel ligation (branches of ECA) 5. Pharyngoplasty 6. Flexible EGD with placement of feeding tube 7. Right thoracic duct ligation via transcervical approach Secondary malignant neoplasm lymph nodes of head, face and neck 12/22/2021 Gastro-esophageal reflux disease without esophag itis 12/13/2017 Other obesity 12/10/2017 BMI 36.0-36.9,adult 12/10/2017 BMI 38.0-38.9,adult 12/10/2017 Immunizations Name Administration Dates Next Due Anthrax 04/10/2005, 4,08/17/2003,02/14,09/11/2002,08/28/2002,08/14/2002 Hep A, Adult 07/17/1997,07/17/1996,07/11/1996 Hep B Vaccine 02/06/1987 Influenza, Quadrivalent, Spl it, Preservative Free, Intramuscular 07/16/2023 Influenza, Split 08/11/2005,11/14/2004 Influenza, Unspecified 06/20/2024(Deferr ed: Patient Refused),07/02/2023,09/02/2022(Deferre d: Patient Refused),06/27/2021,06/27/2020 Influenza, Whole 07/23/2003, 2,08/16/2001,09/13,07/14/1999,07/16/1998,07/27/1997 MMR 05/11/1987 Meningococcal Polysaccharide (Menomune) 08/17/2002 OPV 05/11/1987 PPD TEST 10/16/2003, 3,01/30/2002,02/08,02/13/2000,02/03/1999,12/04/1997 Pfizer SARS-CoV-2 Monovalent Vaccination (12+ Yrs) PURPLE 07/11/2021,10/04/2020,09/13/2020 Smallpox 12/25/2002 Td, adsorbed 12/06/1997 Tdap 08/06/2023 Typhoid H-P SQ/ID 01/05/2005 Typhoid Inactivated 11/28/2002 Typhoid Live 12/06/1997 Yellow Fever 01/14/2000,09/06/1989 ZOSTER Recombinant 06/20/2024 Social History Tobacco Use Types Packs/Day Years Used Date Smoking Tobacco: Never Smokeless Tobacco: Never Tobacco Cessation:Counseling Given: Not Answered Social Connection and Isolation Panel [NHANES] A nswer Date Recorded In a typical week, how many times do you talk on the phone with family, friends, or neighbors? Patient declined 01/07/2022 How often do you get togethe r with friends or relatives? Patient declined 01/07/2022 How often do you attend faith or baptist serv ices? Patient declined 01/07/2022 Do you belong to any clubs o r organizations such as faith groups, unions, fraternal or athletic groups, or school groups? Patient declined 01/07/2022 How often do you attend meet ings of the clubs or organizations you belong to? Patient declined 01/07/2022 Are you , , di vorced, , never , or living with a partner? Patient declined 01/07/2022 AUDIT-C Answer Date Recorded Q1: How often do you have a drink containing alcohol? Never 08/06/2023 Q2: How many drinks containi ng alcohol do you have on a typical day when you are drinking? Patient does not drink Q3: How often do you have si x or more drinks on one occasion? Never 08/06/2023 Overall Financial Resource Strain (CARDIA) Answe r Date Recorded How hard is it for you to pa y for the very basics like food, housing, medical care, and heating? Not hard at all 01/07/2022 PHQ-2 Answer Date Recorded PHQ-2 Total Score (If total score is 3 or more points, staff should administer the PHQ-9) 0 09/28/2024 Hunger Vital Sign Answer Date Recorded Within the past 12 months, y ou worried that your food would run out before you got the money to buy more. Never true 01/08/20 22 Within the past 12 months, t he food you bought just didn't last and you didn't have money to get more. Never true 01/07/2022 PRAPARE - Transportation Answer Date Re corded In the past 12 months, has l ack of transportation kept you from medical appointments or from getting medications? No 12/26 In the past 12 months, has l ack of transportation kept you from meetings, work, or from getting things needed for daily living? No 01/07/2022 Housing Stability Vital Sign Answer Dixon e Recorded In the last 12 months, was t here a time when you were not able to pay the mortgage or rent on time? No 01/07/2022 In the last 12 months, how many places have you lived? 1 01/07/2022 In the last 12 months, was t here a time when you did not have a steady place to sleep or slept in a mcfp (including now)? No 01/07/2022 Sex and Gender Information Value Date Recorded Sex Assigned at Not on file Legal Sex Male 2:20 AM CHOKE SETTER Gender Identity Not on file Sexual Orientation Not on file Last Filed Vital Signs Vital Sign Reading Time Taken Comments Blood Pressure 146/90 09/28/2024 12:48 PM CHOKE SETTER Pulse 67 09/28/2024 12:48 PM CHOKE SETTER Temperature 36.4 C (97.6 F) 09/28/2024 12:48 PM CHOKE SETTER Respiratory Rate 16 09/28/2024 12:48 PM CHOKE SETTER Oxygen Saturation 97% 09/28/2024 12:48 PM CHOKE SETTER Inhaled Oxygen Concentration - - Weight 130.6 kg (288 lb) 09/28/2024 12:48 PM CHOKE SETTER Height 180.3 cm (5' 11 ) 09/28/2024 12:48 PM CHOKE SETTER Body Mass Index 40.17 09/28/2024 12:48 PM CHOKE SETTER Plan of Treatment Not on file Procedures Procedure Name Priority Date/Time Associated Diagnosis Comments US GUIDED FINE NEEDLE ASPIRATION 1ST LESION Schedule Routine, Read Routine (OP Routine) 10/06/2024 4:30 PM CHOKE SETTER Enlarged lymph node CYTOLOGY Routine 10/06/2024 4:20 AM CHOKE SETTER Enlarged lymph node CT SOFT TISSUE NECK W CONTRAST Schedule Routine, Read Routine (OP Routine) 10/04/2024 12:03 PM CHOKE SETTER Enlarged lymph node CT SOFT TISSUE NECK W CONTRAST Schedule Routine, Read Routine (OP Routine) 08/14/2024 10:00 AM CHOKE SETTER 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, face and neck (HCC) CT CHEST W CONTRAST Schedule Routine, Read Routine (OP Routine) 08/14/2024 7:59 AM CHOKE SETTER Primary cancer of oropharynx (CMS/HCC) (HCC) POCT CREATININE - DEVICE Routine 08/14/2024 7:54 AM CHOKE SETTER STOOL DNA COLOGUARD Routine 09/04/2023 10:30 AM CHOKE SETTER Screening for colon cancer PSA, TOTAL Routine 08/09/2023 from Last 3 Months or Most Recently Relevant to Health Maintenance Results * US Guided Fine Needle Aspiration 1st Lesion (10/06/2024 4:30 PM CHOKE SETTER) Anatomical Region Laterality Modality Body N/A Ultrasound 10/06/2024 4:37 PM CHOKE SETTER Impressions 10/06/2024 4:45 PM CHOKE SETTER 1. Successful ultrasound-guided fine needle aspiration of right level 2B lymph node. 2. Please see separate cytology results for final interpretation. Dictated by: Arsenio Rodrigez MD The radiology attending physician has personally reviewed this study, and had reviewed and/or edited this written report and agrees with it. Electronically signed by: Reno Beltre M.D. 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 COMPARISON: CT neck 10/04/2024 FINDINGS: Enlarged right level 2B node measuring 2.6 x 2.1 x 0.8 cm corresponding with enlarged lymph node noted on CT neck dated 10/04/2024. TECHNIQUE: The procedure for ultrasound-guided fine needle aspiration (FNA) was explained to and discussed with the patient. Risks were explained to include, but not be limited to, hemorrhage, infection, injury to adjacent organs, non-diagnostic specimen and adverse reaction to medications administered. The patient voiced understanding and wished to proceed and signed the consent form. The patient's overlying skin was prepped and draped in the usual sterile fashion. FNA: The right cervical level 2B lymph node was located in right neck and measured 2.6 cm x 2.1 cm x 0.8 cm. A site was localized for fine needle aspiration. The patient's overlying skin was prepped and draped in the usual sterile fashion. Local anesthesia was achieved via subcutaneous and deep administration with 5 mL of Lidocaine 1%. Under realtime ultrasound guidance, the needle was advanced into the lymph node and 6 passes were made with 25 gauge needles. The samples were handed to the bindery cutter operator. The patient's skin was cleaned and dressed. The patient tolerated the entire procedure well without immediate complications. Dr. Reno Beltre M.D., the attending radiologist, was present from the beginning to the end of the procedure. Dr. Arsenio Rodrigez performed the biopsy. 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 COMPARISON: CT neck 10/04/2024 FINDINGS: Enlarged right level 2B node measuring 2.6 x 2.1 x 0.8 cm corresponding with enlarged lymph node noted on CT neck dated 10/04/2024. TECHNIQUE: The procedure for ultrasound-guided fine needle aspiration (FNA) was explained to and discussed with the patient. Risks were explained to include, but not be limited to, hemorrhage, infection, injury to adjacent organs, non-diagnostic specimen and adverse reaction to medications administered. The patient voiced understanding and wished to proceed and signed the consent form. The patient's overlying skin was prepped and draped in the usual sterile fashion. FNA: The right cervical level 2B lymph node was located in right neck and measured 2.6 cm x 2.1 cm x 0.8 cm. A site was localized for fine needle aspiration. The patient's overlying skin was prepped and draped in the usual sterile fashion. Local anesthesia was achieved via subcutaneous and deep administration with 5 mL of Lidocaine 1%. Under realtime ultrasound guidance, the needle was advanced into the lymph node and 6 passes were made with 25 gauge needles. The samples were handed to the bindery cutter operator. The patient's skin was cleaned and dressed. The patient tolerated the entire procedure well without immediate complications. Dr. Reno Beltre M.D., the attending radiologist, was present from the beginning to the end of the procedure. Dr. Arsenio Rodrigez performed the biopsy. IMPRESSION: 1. Successful ultrasound-guided fine needle aspiration of right level 2B lymph node. 2. Please see separate cytology results for final interpretation. Dictated by: Arsenio Rodrigez MD The radiology attending physician has personally reviewed this study, and had reviewed and/or edited this written report and agrees with it. Electronically signed by: Reno Beltre M.D. Fany [facility] US PROCEDURES Final Result * Cytology (10/06/2024 4:20 AM CHOKE SETTER) Fluid (Lymph Node (Cytology)) 10/06/2024 3:46 PM CHOKE SETTER Comment:right level 2B lymph node Narrative PATHOLOGY [facility] - 10/11/2024 4:45 PM CHOKE SETTER EPIC results best viewed via link to PDF [facility] [place] [address] Note to Patients: This report may contain a detailed description of human tissue sent by a health care provider to the laboratory for pathologic evaluation. The content of this report is essential for diagnosis and may provide important critical findings. This information may be unfamiliar to patients to review without a medical professional present. It is advised that the patient review this report in the presence of a health care provider who can answer questions and explain the details. CYTOPATHOLOGY REPORT FINAL Patient Name: ERIC BAUTISTA Gender: M : 1965 (Age: 58) Address[address] [address] [place] [address] Hospital #: [id number] Taken:10/06/2024 Received:10/06/2024 Reported: 10/11/2024 Patient Type: [facility] Ancillary Service: UNKNOWN Location: Physician(s): Robyn Coley PA-C FINAL DIAGNOSIS A. Lymph node, right neck, level 2B, ultrasound-guided fine needle aspiration: - Mixed lymphocytes with slight B-cell predominance - Negative for metastatic carcinoma - See comment Comments The direct smears and cell block show polymorphous lymphocytes. No malignant epithelial cells are seen. Immunohistochemical studies (single antibody procedures with appropriate controls) are performed for further characterization. CD20 and CD3 highlight admixed B- and T-cells respectively. Because there is a slight B-cell predominance, additional immunostains are pursued. CD5 is positive in the T-cell distribution. CD21 and CD23 highlight relatively preserved follicular dendritic meshworks. CD10 shows cytoplasmic staining in scattered background cells. BCL2 shows staining in scattered, small-appearing B- and T-cells. BCL6, cyclin D1, and SOX10 are essentially negative. There is modest B-cell predominance, without marked atypia. Immunostains are not diagnostic for lymphoma. If lymphadenopathy persists, re-sampling with concurrent flow cytometric analysis is recommended, if clinically indicated. pamo/10/09/2024 10:50 By this signature, I attest that the above diagnosis is based upon my personal examination of the slides(and/or other material indicated in the diagnosis). Val Barnett M.D. Report Electronically Reviewed and Signed Out By Val Barnett M.D. 10/11/2024 16:45:31 ALEA Roger ([facility]) Gross Description A. Lymph node, neck, right, level 2B, ultrasound guided fine needle aspiration: 3 Pap stained smear(s) and 3 Diff-Quik stained smear(s). 1 cell block prepared from needle rinse tube. Aspirated by clinician. (tcg) Clinical Diagnosis and History The patient is a 58-year-old man with history of non-keratinizing squamous cell carcinoma who presents with enlarged lymph node. REPORT IMAGES AND SCANNED DOCUMENTS, IF INCLUDED, ONLY VIEWABLE IN PDF VERSION OF REPORT The performance characteristics of some immunohistochemical stains, in-situ hybridization and fluorescence in-situ hybridization tests and immunophenotyping by flow cytometry cited in this report (if any) were determined by the Surgical Pathology and Flow Cytometry Departments at [facility] as part of an ongoing manufacturing quality technician program and in compliance with federally mandated regulations drawn from the Clinical Laboratory Improvement Act of 1988 (CLIA '88). Some of these tests rely on the use of analyte specific reagents and are subject to specific labeling requirements by the US Food and Drug Administration. Such diagnostic tests may only be performed in a facility that is certified by the Department of Health and Human Services as a high complexity laboratory under CLIA '88. The FDA has determined that such clearance or approval is not necessary. This test is used for clinical purposes. It should not be regarded as investigational or for research. Nevertheless, federal rules concerning the medical use of analyte specific reagents require that the following disclaimer be attached to the report: This test was developed and its performance characteristics determined by the Surgical Pathology and Flow Cytometry Departments of [facility]. It has not been cleared or approved by the U. S. Food and Drug Administration. Fany [facility] CYTOLOGY ORDERABLES Final Result PATHOLOGY [facility] 3rd Floor [place], [place] [phone] * CT Neck Soft Tissue W Contrast (10/04/2024 12:03 PM CHOKE SETTER) Anatomical Region Laterality Modality Head and Neck N/A Computed Tomogra phy 10/04/2024 12:2 9 PM CHOKE SETTER Narrative 10/04/2024 3:06 PM CHOKE SETTER EXAM DESCRIPTION: CT SOFT TISSUE NECK W CONTRAST REASON FOR STUDY: enlarged lymph node Right neck lump, enlarged lymph node, bb placed TECHNIQUE: Post IV contrast scanning from skull base through lung apices. Reconstructed MPR images reviewed. All images stored on PACS. Automated exposure control was used as a dose optimization technique for this examination. CONTRAST TYPE/DOSE: 100mL of IOVERSOL 350 MG IODINE/ML INTRAVENOUS SYRINGE injected via intravenous COMPARISON: Multiple previous soft tissue neck CTs with the most recent dated 08/14/2024. Whole-body PET-CT dated 12/30/2021. FINDINGS: Partially imaged globes are grossly symmetric. Partially imaged ethmoid air cells with mucosal thickening, egqyi-wpdxsks-zycw-left. Right maxillary sinus air-fluid level foamy secretions are new when compared to the previous CT dated 08/14/2024. Partially imaged nasal septum has a biconvex curvature. Left joni bullosa is partially opacify. There is mucosal thickening in the nasal cavity, pyotr-kdpehif-owzr-left. The mastoid air cells are predominantly clear. The temporomandibular joints are symmetrically placed the zygomatic arches are intact. The bilateral parotid glands enhance symmetrically. Surgical clip adjacent to the left submandibular gland with adjacent thickening of the platysma as seen previously. The dental amalgam related streak artifact limits the assessment of the adjacent structures including the oral cavity and oropharynx. Left oropharynx mild volume loss as seen previously in keeping with treatment related change. The vocal cords are adducted limiting evaluation supraglottic larynx and glottic region. Remainder of the airway is midline and patent. There is no parapharyngeal or retropharyngeal fluid collection. There is a right lateral suprahyoid neck skin marker. Adjacent right level 2 B/5 1.8 x 1.1 cm lymph node has increased in size and previously up to 1.1 x 0.9 cm on 08/14/2024. Additional scattered bilateral cervical chain lymph nodes are grossly similar in size. Right neck dissection related changes are again seen. The bilateral internal jugular veins are patent. No thyroid nodule greater than 1 cm in size. Lung apices without focal pneumonic consolidation. Multilevel cervical spine degenerative changes are similar. IMPRESSION: 1. There is a right lateral suprahyoid neck skin marker placed by the computed tomography technologist. Adjacent right level 2B/5 lymph node has increased in size when compared to the previous CT neck dated 08/14/2024. With a history of right tonsillar squamous cell carcinoma need for tissue sampling and/or further evaluation with a PET-CT as clinically indicated. 2. The right tonsillectomy related changes are similar. 3. New paranasal sinus disease in the interval, the foamy secretions and air-fluid levels can be seen with acute on chronic sinusitis in the proper clinical scenario. THIS IS AN ELECTRONICALLY VERIFIED FINAL REPORT 10/04/2024 3:06 PM - Electronically signed by Shlomo GODOY T: Report ID: [id number] Reading Location: [place] [address] Procedure Note Shlomo Mcdonough, DO - 10/04/2024 EXAM DESCRIPTION: CT SOFT TISSUE NECK W CONTRAST REASON FOR STUDY: enlarged lymph node Right neck lump, enlarged lymph node, bb placed TECHNIQUE: Post IV contrast scanning from skull base through lung apices. Reconstructed MPR images reviewed. All images stored on PACS. Automated exposure control was used as a dose optimization technique for this examination. CONTRAST TYPE/DOSE: 100mL of IOVERSOL 350 MG IODINE/ML INTRAVENOUSSYRINGE injected via intravenous COMPARISON: Multiple previous soft tissue neck CTs with the most recent dated 08/14/2024. Whole-body PET-CT dated 12/30/2021. FINDINGS: Partially imaged globes are grossly symmetric. Partially imaged ethmoid air cells with mucosal thickening, cgscz-cderrcd-iguv-left. Right maxillary sinus air-fluid level foamy secretions are new when compared tothe previous CT dated 08/14/2024. Partially imaged nasal septum has abiconvex curvature. Left joni bullosa is partially opacify. There is mucosal thickening in the nasal cavity, jfpez-rknbgad-hyqs-left. The mastoid air cells are predominantly clear. The temporomandibularjoints are symmetrically placed the zygomatic arches are intact. The bilateral parotid glands enhance symmetrically. Surgical clipadjacent to the left submandibular gland with adjacent thickening of the platysma asseen previously. The dental amalgam related streak artifact limits the assessment of the adjacent structures including the oral cavity and oropharynx. Leftoropharynx mild volume loss as seen previously in keeping with treatment relatedchange. The vocal cords are adducted limiting evaluation supraglottic larynx and glottic region. Remainder of the airway is midline and patent. There is no parapharyngeal or retropharyngeal fluid collection. There is a right lateral suprahyoid neck skin marker. Adjacent rightlevel 2 B/5 1.8 x 1.1 cm lymph node has increased in size and previously up to 1.1x 0.9 cm on 08/14/2024. Additional scattered bilateral cervical chain lymph nodes are grossly similar in size. Right neck dissection related changesare again seen. The bilateral internal jugular veins are patent. No thyroid nodule greater than 1 cm in size. Lung apices without focal pneumonic consolidation. Multilevel cervical spine degenerative changes are similar. IMPRESSION: 1. There is a right lateral suprahyoid neck skin marker placed by the computed tomography technologist. Adjacent right level 2B/5 lymph node has increased in sizewhen compared to the previous CT neck dated 08/14/2024. With a history ofright tonsillar squamous cell carcinoma need for tissue sampling and/or further evaluation with a PET-CT as clinically indicated. 2. The right tonsillectomy related changes are similar. 3. New paranasal sinus disease in the interval, the foamy secretions and air-fluid levels can be seen with acute on chronic sinusitis in the proper clinical scenario. THIS IS AN ELECTRONICALLY VERIFIED FINAL REPORT 10/04/2024 3:06 PM - Electronically signed by Shlomo GOODY T: Report ID: [id number] Reading Location: [place] [address] PROCEDURES Final Result * CT Neck Soft Tissue W Contrast (08/14/2024 10:00 AM CHOKE SETTER) Anatomical Region Laterality Modality Head and Neck N/A Computed Tomogra phy 08/14/2024 11:1 1 AM CHOKE SETTER Impressions 08/14/2024 7:09 PM CHOKE SETTER Postsurgical changes following right tonsillectomy and right neck dissection. No evidence of disease recurrence or cervical lymphadenopathy.. Dictated by: Hector Mcnally D.O. The radiology attending physician has personally reviewed this study, and had reviewed and/or edited this written report and agrees with it. 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 TECHNIQUE: CT of the neck was performed according to the standard protocol with intravenous contrast. Contrast information: 60 mL Optiray-350 COMPARISON: CT soft tissue neck dated 02/14/2024 and 11/08/2023. FINDINGS: Postsurgical changes following right tonsillectomy and right neck dissection. Stable appearance of a right level 2B lymph node measuring 8.5 mm in short axis, previously 8.5 mm (series 2, image 54). Interval decrease in an additional right to be lymph node measuring 4 mm in short axis, previously 7 mm (series 2, image 44). A right level 5 subcentimeter lymph node has decreased in size. No new suspicious lymph nodes are identified. Vessels of the neck demonstrate normal course and caliber. Fascial planes are preserved and the deep spaces of the neck are normal. The visualized airway is widely patent. The base of the skull and the temporal bones are normal. Limited views of the brain including the cerebellum and brainstem are normal. The limited view of the [place] is unremarkable. The visualized portions of the orbits are normal. Mild/moderate multilevel degenerative disc disease. Unchanged appearance of the T1 vertebral body. Limited examination of the superior thorax shows no pulmonary infiltrate, suspicious nodules, or pleural effusions. 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 TECHNIQUE: CT of the neck was performed according to the standard protocol with intravenous contrast. Contrast information: 60 mL Optiray-350 COMPARISON: CT soft tissue neck dated 02/14/2024 and 11/08/2023. FINDINGS: Postsurgical changes following right tonsillectomy and right neck dissection. Stable appearance of a right level 2B lymph node measuring 8.5 mm in short axis, previously 8.5 mm (series 2, image 54). Interval decrease in an additional right to be lymph node measuring 4 mm in short axis, previously 7 mm (series 2, image 44). A right level 5 subcentimeter lymph node has decreased in size. No new suspicious lymph nodes are identified. Vessels of the neck demonstrate normal course and caliber. Fascial planes are preserved and the deep spaces of the neck are normal. The visualized airway is widely patent. The base of the skull and the temporal bones are normal. Limited views of the brain including the cerebellum and brainstem are normal. The limited view of the [place] is unremarkable. The visualized portions of the orbits are normal. Mild/moderate multilevel degenerative disc disease. Unchanged appearance of the T1 vertebral body. Limited examination of the superior thorax shows no pulmonary infiltrate, suspicious nodules, or pleural effusions. IMPRESSION: Postsurgical changes following right tonsillectomy and right neck dissection. No evidence of disease recurrence or cervical lymphadenopathy.. Dictated by: Hector Mcnally D.O. The radiology attending physician has personally reviewed this study, and had reviewed and/or edited this written report and agrees with it. Electronically signed by: Jarrod Evans MD, PHD [facility] AGU[facility] IMG CT PROCEDURES Final Result * CT Chest with Contrast (08/14/2024 7:59 AM CHOKE SETTER) Anatomical Region Laterality Modality Body N/A Computed Tomogra phy 08/14/2024 8:11 AM CHOKE SETTER Impressions 08/14/2024 8:11 AM CHOKE SETTER No evidence of metastatic disease in the chest. Unchanged pulmonary nodules, stable in appearance since at least 2021 and likely benign. Electronically signed by: Denny Santo M.D. Narrative 08/14/2024 8:11 AM CHOKE SETTER EXAMINATION: Computed tomography of the chest with intravenous contrast HISTORY: Tonsillar squamous cell carcinoma. TECHNIQUE: Transaxial computed tomographic images of the chest were obtained with intravenous contrast according to the standard protocol after the uneventful administration of 68 mL Opti-Ray 350 intravenous contrast. COMPARISON: CT 02/14/2024, CT 12/30/2021, FDG PET CT 12/30/2021 FINDINGS: Stable scattered pulmonary nodules, the largest of which is a 11 mm left lower lobe peripheral pulmonary nodule (table position -1026.7); these are unchanged since at least 2021 did not demonstrate FDG avidity on prior FDG PET/CT. No new suspicious pulmonary nodule. No focal consolidation, pleural effusion, pneumothorax or pulmonary edema. Postsurgical changes of right neck dissection, partial evaluated. No thoracic lymphadenopathy. Heart size is normal. No pericardial effusion. Thoracic aorta is normal caliber. Imaged thyroid is normal. No acute abnormality in the imaged upper abdomen. No aggressive osseous lesion Procedure Note Denny Santo MD PhD - 08/14/2024 EXAMINATION: Computed tomography of the chest with intravenous contrast HISTORY: Tonsillar squamous cell carcinoma. TECHNIQUE: Transaxial computed tomographic images of the chest were obtained with intravenous contrast according to the standard protocol after the uneventful administration of 68 mL Opti-Ray 350 intravenous contrast. COMPARISON: CT 02/14/2024, CT 12/30/2021, FDG PET CT 12/30/2021 FINDINGS: Stable scattered pulmonary nodules, the largest of which is a 11 mm left lower lobe peripheral pulmonary nodule (table position -1026.7); these are unchanged since at least 2021 did not demonstrate FDG avidity on prior FDG PET/CT. No new suspicious pulmonary nodule. No focal consolidation, pleural effusion, pneumothorax or pulmonary edema. Postsurgical changes of right neck dissection, partial evaluated. No thoracic lymphadenopathy. Heart size is normal. No pericardial effusion. Thoracic aorta is normal caliber. Imaged thyroid is normal. No acute abnormality in the imaged upper abdomen. No aggressive osseous lesion IMPRESSION: No evidence of metastatic disease in the chest. Unchanged pulmonary nodules, stable in appearance since at least 2021 and likely benign. Electronically signed by: Denny Santo M.D. [facility] IMG CT PROCEDURES Final Result * POCT creatinine (08/14/2024 7:54 AM CHOKE SETTER) [facility] Creatinine POC 1.2 0.7 - 1.3 mg/dL Blood 08/14/2024 7:54 AM CHOKE SETTER 08/14/2024 7:54 AM CHOKE SETTER Fany AGUAYO LAB POCT ORDERABLES - D EVICE Final Result JOSÉ ANTONIO ESTEVEZ [facility] [place] [address] * Stool DNA - Cologuard (09/04/2023 10:30 AM CHOKE SETTER) [facility] Stool DNA - Cologuard Negative Negative [employer] (CLIA #:[id number]) Comment: NEGATIVE TEST RESULT. A negative Cologuard result indicates a low likelihood that a colorectal cancer (CRC) or advanced adenoma (adenomatous polyps with more advanced pre-malignant features) is present. The chance that a person with a negative Cologuard test has a colorectal cancer is less than 1 in 1500 (negative predictive value >99.9%) or has an advanced adenoma is less than 5.3% (negative predictive value 94.7%). These data are based on a prospective cross-sectional study of 10,000 individuals at average risk for colorectal cancer who were screened with both Cologuard and colonoscopy. (Aquilino Amaya et al, N Engl J Med 2014;370(14):9763-5523) The normal value (reference range) for this assay is negative. COLOGUARD RE-SCREENING RECOMMENDATION: Periodic colorectal cancer screening is an important part of preventive healthcare for asymptomatic individuals at average risk for colorectal cancer. Following a negative Cologuard result, the French Cancer Society and U.S. Multi-Society Task Force screening guidelines recommend a Cologuard re-screening interval of 3 years. References: French Cancer Society Guideline for Colorectal Cancer Screening: https://www.cancer.org/cancer/eqwmy-cmtyez-khvcwl/vbtgvrguf-mftcwuibc-izfdbvu/ac s-rec ommendations.html.; Elvin RAZO, Orin DENISE, Uziel NievesK, Colorectal Cancer Screening: Recommendations for Physicians and Patients from the U.S. Multi-Society Task Force on Colorectal Cancer Screening , Am J Gastroenterology 2017; 112:4613-9683. TEST DESCRIPTION: Composite algorithmic analysis of stool DNA-biomarkers with hemoglobin immunoassay. Quantitative values of individual biomarkers are not reportable and are not associated with individual biomarker result reference ranges. Cologuard is intended for colorectal cancer screening of adults of either sex, 45 years or older, who are at average-risk for colorectal cancer (CRC). Cologuard has been approved for use by the U.S. FDA. The performance of Cologuard was established in a cross sectional study of average-risk adults aged 50-84. Cologuard performance in patients ages 45 to 49 years was estimated by sub-group analysis of near-age groups. Colonoscopies performed for a positive result may find as the most clinically significant lesion: colorectal cancer [4.0%], advanced adenoma (including sessile serrated polyps greater than or equal to 1cm diameter) [20%] or non- advanced adenoma [31%]; or no colorectal neoplasia [45%]. These estimates are derived from a prospective cross-sectional screening study of 10,000 individuals at average risk for colorectal cancer who were screened with both Cologuard and colonoscopy. (Aquilino Loredo al, N Engl J Med 2014;370(14):2982-7847.) Cologuard may produce a false negative or false positive result (no colorectal cancer or precancerous polyp present at colonoscopy follow up). A negative Cologuard test result does not guarantee the absence of CRC or advanced adenoma (pre-cancer). The current Cologuard screening interval is every 3 years. (French Cancer Society and U.S. Multi-Society Task Force). Cologuard performance data in a 10,000 patient pivotal study using colonoscopy as the reference method can be accessed at the following location: www.[employer]/results. Additional description of the Cologuard test process, warnings and precautions can be found at www.cologBad [employer]rd.com. Stool 09/04/2023 10:3 0 AM CHOKE SETTER 09/05/2023 11:51 PM CHOKE SETTER Jonathan Solis MD LAB BODY FLUIDS AND STOOLS ORDERABLES Final Result [employer] (CLIA #:[id number]) [place] [address] * PSA, total Blood (08/09/2023) SCRIBED PSA, Total 0.3 <4.0 - <4.0 Blood 08/09/2023 Shreya Provider LAB BLOOD ORDERABLES Aisha l Result from Last 3 Months or Most Recently Relevant to Health Maintenance Insurance [facility] Advance Directives For more information, please contact: [phone] * Full Code (Latest Code Status on File) Date Activated Date Inactivated Comments 01/16/2022 9:28 AM 01/18/2022 6:42 PM * Full Code Date Activated Date Inactivated Comments 01/09/2022 2:04 PM 01/11/2022 5:07 PM Care Teams Cotton Presser Relationship Specialty Start Date End Date Jonathan Solis MD [address] [place] [address] PCP - General Family Medicine 07/01/20 Nicolás Barnes MD [address] [facility] [address] [place] [address] Medical Oncologist/Manager Cash Medical Oncology 12/17/21 David Lee MD [address] [place] [id number] [place] [address] Consulting Physician Otolaryngology 12/26/21
--- OUTSIDE RECORDS SUMMARY | 2024-11-01 15:08 | XMS_ITS | Clinical Summary ---
Author Organization [facility] Address [address] [place] [address] Care Team Providers Care Discharge Door Operator Name Role Phone Unavailable Primary Care Provider Unavailabl e Social History Tobacco Use Types Packs/Day Years Used Date Smoking Tobacco: Never Assessed Sex and Gender Information Value Date Recorded Sex Assigned at Not on file Legal Sex Male 6:23 PM CDT Gender Identity Not on file Sexual Orientation Not on file Plan of Treatment Health Maintenance Due Date Last Done Comments Colorectal Cancer Screening Colonoscopy (10 Years) 1966 Annual Physical 1969 Hepatitis C 1984 DTaP, Tdap and Td Vaccines ( 1 - Tdap) 1985 Hepatitis B Vaccines (1 of 3 - 19+ 3-dose series) 1985 Zoster Vaccines (1 of 2) 2016 COVID-19 Vaccine (2023-2 5 season) 2024 Influenza Adult (#1) 2024 Meningococcal B Vaccine Aged Out No l onger eligible based on patient's age to complete this topic Meningococcal Vaccine Aged Out No norberto romel eligible based on patient's age to complete this topic Pneumococcal Vaccine: Pediat rics (0 to 5 Years) and At-Risk Patients (6 to 64 Years) Aged Out No longer eligible b ased on patient's age to complete this topic RSV Immunizations Under 20 Months Aged Out No longer eligible based on patient's age to complete this topic
--- OUTSIDE RECORDS SUMMARY | 2024-11-01 15:08 | XMS_ITS ---
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 Right neck dissection, levels II-IV [...] 12/10/2017 BMI 36.0-36.9,adult 12/10/2017 BMI 38.0-38.9,adult 12/10/2017 Current Oncology Plans No current plan information found. Past Plans No past plan information found. Radiation Treatments * No radiation treatments are documented for this patient in [facility]. Treatments may have been administered in another system. Lifetime Dose Tracking * Chemical Lifetime Dose Automatic Entry Manual Entr y DLP 9,204 mGycm 9,204 mGycm 0 mGycm
--- OUTSIDE RECORDS SUMMARY | 2024-11-01 15:08 | XMS_ITS | Encounter Summary ---
Author Organization [facility] Address [address] [place] [address] Care Team Providers Care Collateral Clerk Name Role Phone Jonathan Solis MD Primary Care Provid er OppeNicolás blanco MD Unavailable [phone] David Lee MD Unavailable [phone] Reason for Visit * Reason Onset Date Comments Referral Request 10/04/2024 Encounter Details Date Type Department Care Team (Late st Contact Info) Description 10/04/2024 Telephone [facility] Family Medicine [address] [address] Jonathan Solis MD [address] [address] Referral Request Social History Tobacco Use Types Packs/Day Years Used Date Smoking Tobacco: Never Smokeless Tobacco: Never Social Connection and Isolation Panel [NHANES] A nswer Date Recorded In a typical week, how many times do you talk on the phone with family, friends, or neighbors? Patient declined 01/07/2022 How often do you get togethe r with friends or relatives? Patient declined 01/07/2022 How often do you attend pentecostal or mu-ism serv ices? Patient declined 01/07/2022 Do you belong to any clubs o r organizations such as pentecostal groups, unions, fraternal or athletic groups, or [...] money to buy more. Never true 01/08/20 Within the past 12 months, t he [...] place to sleep or slept in a custodial (including now)? No 01/07/2022 Sex and Gender Information Value Date Recorded Sex Assigned at Not on file Legal Sex Male 2:20 AM REVENUE STAMPER Gender Identity Not on file Sexual Orientation Not on file documented as of this encounter Miscellaneous Notes * Telephone Encounter - Alana Tran - 10/12/2024 4:16 PM CST Called same day as message came through and unable to reach , not sure of the type of referral they are asking for. If pt or calls back, please put them through to the office. NUE STAMPER * Telephone Encounter - Amber Fragoso - 10/04/2024 10:52 AM CST See message NUE STAMPER * Telephone Encounter - Charity Orosco - 10/04/2024 9:24 AM CST Referral Provider Name: [place], [place] Specialty: hospital Address: [address] [place] [address], Zip: [place] [address] Fax: unknown Diagnosis Code/Symptom/Reason Patient is being seen: R59.9 Date of Appointment: 10/04/24 @ 1500 NPI#: n/a Tax ID#: n/a Is insurance in chart up to date? Yes - [employer] Additional Comments: none Does message need to be routed? Yes-Action Needed NUE STAMPER documented in this encounter Plan of Treatment Not on file documented as of this encounter Visit Diagnoses Not on filedocumented in this encounter Care Teams Collateral Clerk Relationship Specialty Start Date End Date Jonathan Solis MD [address] [place] [address] PCP - General Family Medicine 07/01/20 Nicolás Barnes MD [address] [facility] [address] [place] [address] Medical Oncologist/Front Desk Lead Medical Oncology 12/17/21 David Lee MD [address] [facility] [address] [place] [address] Consulting Physician Otolaryngology 12/26/21 documented as of this encounter
--- OUTSIDE RECORDS SUMMARY | 2024-11-01 15:08 | XMS_ITS | Clinical Summary ---
Author Organization [address] Address [address] [phone] Care Team Providers Care Electromechanical Assembly Technician Name Role Phone Jonathan Solis MD Primary Care Provid er OppeltNicolás MD Unavailable [phone] David Lee MD Unavailable [phone] Allergies No known active allergies Medications cholecalciferol, [...] 12/10/2017 BMI 36.0-36.9,adult 12/10/2017 BMI 38.0-38.9,adult 12/10/2017 Encounters Date Type Department Care Team Description 10/17/2024 Orders Only [facility] Department of Otolaryngology Head-Neck Division [address] [place] [phone] Fany Shi PA Oropharynx cancer (CMS/HCC) (HCC) (Primary Dx) 10/06/2024 1:42 PM BARREL BRANDER - 10/06/2024 11:59 PM BARREL BRANDER Hospital Encounter [facility] [address] [place] [phone] Enlarged lymph node Discharge Disposition: Discharge to home or self care 10/05/2024 Telephone [facility] Radiology [address] [place] [address] Reema Centeno RN 10/05/2024 Telephone [facility] Department of Otolaryngology Head-Neck Division [address] [place] [phone] Meghan Griggs RN 10/05/2024 Orders Only [facility] Department of Otolaryngology Head-Neck Division [address] [place] [phone] Fany Shi PA Enlarged lymph node (Primary Dx) 10/04/2024 11:45 AM BARREL BRANDER - 10/04/2024 11:59 PM BARREL BRANDER Hospital Encounter [facility] [address] [place] [address] Enlarged lymph node Discharge Disposition: Discharge to home or self care 10/04/2024 Telephone [facility] Medicine [address] [phone] Jonathan Solis MD Referral Request 10/03/2024 Orders Only [facility] Department of Otolaryngology Head-Neck Division [address] [place] [phone] Fany Shi PA Enlarged lymph node (Primary Dx) 10/02/2024 Telephone [facility] Department of Otolaryngology Head-Neck Division [address] [place] [phone] Meghan Griggs RN 10/02/2024 Orders Only [facility] Department of Otolaryngology Head-Neck Division [address] [place] [phone] Fany Shi PA Enlarged lymph node (Primary Dx) 09/28/2024 12:45 PM BARREL BRANDER Office Visit [facility] [address] [phone] Patrizia Weems PA Neck mass (Primary Dx); Upper respiratory tract infection, unspecified type; Elevated blood pressure reading 09/28/2024 Nurse Triage [facility] [address] [phone] Jonathan Solis MD 08/14/2024 9:29 AM BARREL BRANDER - 08/14/2024 11:59 PM BARREL BRANDER Hospital Encounter [facility] [address] [place] [phone] Primary cancer of oropharynx (CMS/HCC) (HCC); Secondary malignant neoplasm lymph nodes of head, face and neck (HCC) Discharge Disposition: Discharge to home or self care 08/14/2024 8:20 AM BARREL BRANDER Office Visit [facility] Department of Otolaryngology Head-Neck Division [address] [facility] Floor [address] [place] [address] Fany Shi PA Primary cancer of oropharynx (CMS/HCC) (HCC) (Primary Dx); Cancer, face (HCC); Secondary malignant neoplasm lymph nodes of head, face and neck (HCC) 08/14/2024 7:14 AM BARREL BRANDER - 08/14/2024 11:59 PM BARREL BRANDER Hospital Encounter [facility] On license of [facility] [place] [address] Primary cancer of oropharynx (CMS/HCC) (HCC) Discharge Disposition: Discharge to home or self care 08/03/2024 Telephone [facility] [address] [phone] Jonathan Solis MD Referral Request from Last 3 Months Immunizations Name Administration Dates Next Due Anthrax [...] 12/06/1997 Yellow Fever 01/14/2000,09/06/1989 ZOSTER Recombinant 06/20/2024 Surgical History Surgery Date Site/Laterality Comments VASECTOMY WISDOM TOOTH EXTRACTION Medical History Medical History Date Comments GERD (gastroesophageal reflux disease) Seasonal allergies Cancer (CMS/HCC) (HCC) Motion sickness Dental disease Tinnitus HPV in male Family History Medical History Relation Name Comments No Known Problems Brother No Known Problems Father No Known Problems Maternal Grandfather No Known Problems Maternal Grandmother No Known Problems Mother No Known Problems Paternal Grandfather No Known Problems Paternal Grandmother No Known Problems Sister Anesthesia problems Neg Hx Relation Name Status Comments Brother Father Maternal Grandfather Maternal Grandmother Mother Paternal Grandfather Paternal Grandmother Sister Social History Tobacco Use Types Packs/Day Years [...] declined 01/07/2022 How often do you attend sikhism or holiness serv ices? Patient declined 01/07/2022 Do you belong to any clubs o r organizations such as sikhism groups, unions, fraternal or athletic groups, or [...] place to sleep or slept in a chcf (including now)? No 01/07/2022 Sex and Gender Information Value Date Recorded Sex Assigned at Not on file Legal Sex Male 2:20 AM BARREL BRANDER Gender Identity Not on file Sexual Orientation Not on file Obstetrics History Last Filed Vital Signs Vital Sign Reading Time Taken Comments Blood Pressure 146/90 09/28/2024 12:48 PM BARREL BRANDER Pulse 67 09/28/2024 12:48 PM BARREL BRANDER Temperature 36.4 C (97.6 F) 09/28/2024 12:48 PM BARREL BRANDER Respiratory Rate 16 09/28/2024 12:48 PM BARREL BRANDER Oxygen Saturation 97% 09/28/2024 12:48 PM BARREL BRANDER Inhaled Oxygen Concentration - - Weight 130.6 kg (288 lb) 09/28/2024 12:48 PM BARREL BRANDER Height 180.3 cm (5' 11 ) 09/28/2024 12:48 PM BARREL BRANDER Body Mass Index 40.17 09/28/2024 12:48 PM BARREL BRANDER Plan of Treatment Health Maintenance Due Date Last Done Comments Hepatitis C Screening 1965 Pneumococcal vaccine <65 (1 of 2 - PCV) 1972 Covid-19 Vaccine (5 - 2023-2 5 season) 2024 08/07/2022, 07/11/2021, 10/04/2020, Additional history exists Influenza Vaccine (#1) 2024 3, 07/02/2023, 06/27/2021, Additional history exists Regular Well Visit/Exam 18-64 08/06/2024 08/06/2023, 08/06/2023 Zoster Vaccine (2 of 2) 08/15/2024 06/20/2024 Prostate Cancer Screening-PSA 08/09/2025 08/09/2023 Depression Screening 09/28/2025 09/28/2024, 06/20/2024, 08/06/2023, Additional history exists Colon Cancer Screening-DNA Stool 09/04/2026 09/04/20 DTaP/Tdap/Td Vaccine (2 - Td or Tdap) 08/06/2033 08/06/2023, 12/06/1997 Procedures Procedure Name Priority Date/Time Associated Diagnosis Comments US GUIDED FINE NEEDLE ASPIRATION 1ST LESION Schedule Routine, Read Routine (OP Routine) 10/06/2024 4:30 PM BARREL BRANDER Enlarged lymph node CYTOLOGY Routine 10/06/2024 4:20 AM BARREL BRANDER Enlarged lymph node CT SOFT TISSUE NECK W CONTRAST Schedule Routine, Read Routine (OP Routine) 10/04/2024 12:03 PM BARREL BRANDER Enlarged lymph node CT SOFT TISSUE NECK W CONTRAST Schedule Routine, Read Routine (OP Routine) 08/14/2024 10:00 AM BARREL BRANDER 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, face and neck (HCC) CT CHEST W CONTRAST Schedule Routine, Read Routine (OP Routine) 08/14/2024 7:59 AM BARREL BRANDER Primary cancer of oropharynx (CMS/HCC) (HCC) POCT CREATININE - DEVICE Routine 08/14/2024 7:54 AM BARREL BRANDER STOOL DNA COLOGUARD Routine 09/04/2023 10:30 AM BARREL BRANDER Screening for colon cancer PSA, TOTAL Routine 08/09/2023 from Last 3 Months or Most Recently Relevant to Health Maintenance Results * US Guided Fine Needle Aspiration 1st Lesion (10/06/2024 4:30 PM BARREL BRANDER) Anatomical Region Laterality Modality Body N/A Ultrasound 10/06/2024 4:37 PM BARREL BRANDER Impressions 10/06/2024 4:45 PM BARREL BRANDER 1. Successful ultrasound-guided fine needle aspiration of right level 2B lymph node. 2. Please see separate cytology results for final interpretation. Dictated by: Arsneio Rodrigez MD The radiology attending physician has personally reviewed this study, and had reviewed and/or edited this written report and agrees with it. Electronically signed by: Reno Beltre M.D. Narrative 10/06/2024 4:45 PM BARREL BRANDER EXAMINATION: ULTRASOUND-GUIDED FINE NEEDLE ASPIRATION BIOPSY HISTORY: [...] needles. The samples were handed to the executive meeting manager. The patient's skin was cleaned and dressed. [...] needles. The samples were handed to the executive meeting manager. The patient's skin was cleaned and dressed. [...] signed by: Reno Beltre M.D. Fany AGUAYO [facility] US PROCEDURES Final Result * Cytology (10/06/2024 4:20 AM BARREL BRANDER) Fluid (Lymph Node (Cytology)) 10/06/2024 3:46 PM BARREL BRANDER Comment:right level 2B lymph node Narrative PATHOLOGY [facility] - 10/11/2024 4:45 PM BARREL BRANDER EPIC results best viewed via link to PDF [facility] [place] [address] Note to Patients: This report may contain [...] Gender: M : 1965 (Age: 58) Address: [facility] [place] [address] Hospital #: [id number] Taken:10/06/2024 Received:10/06/2024 Reported: 10/11/2024 Patient Type: [facility] Ancillary Service: UNKNOWN Location: Physician(s): Robyn Coley [...] Val Barnett M.D. 10/11/2024 16:45:31 ALEA Roger (ASCP) Gross Description A. Lymph node, neck, right, [...] Pathology and Flow Cytometry Departments at [facility] as part of an ongoing quality improvement analyst program and in compliance with federally mandated [...] Pathology and Flow Cytometry Departments of [facility]. It has not been cleared or approved by the U. S. Food and Drug Administration. Fany AGUAYO LAB CYTOLOGY ORDERABLES Final Result PATHOLOGY [facility] 3rd Floor [place], [place] [phone] * CT Neck Soft Tissue W Contrast (10/04/2024 12:03 PM BARREL BRANDER) Anatomical Region Laterality Modality Head and Neck N/A Computed Tomogra phy 10/04/2024 12:2 9 PM BARREL BRANDER Narrative 10/04/2024 3:06 PM BARREL BRANDER EXAM DESCRIPTION: CT SOFT TISSUE NECK W [...] imaged ethmoid air cells with mucosal thickening, vuiva-riqyici-edas-left. Right maxillary sinus air-fluid level foamy secretions are new when compared to the previous CT dated 08/14/2024. Partially imaged nasal septum has a biconvex curvature. Left joni bullosa is partially opacify. There is mucosal thickening in the nasal cavity, obgtq-qvsatsv-frkb-left. The mastoid air cells are predominantly clear. [...] suprahyoid neck skin marker placed by the mineral technologist. Adjacent right level 2B/5 lymph node [...] signed by Shlomo GODOY T: Report ID: [id number] Reading Location: [place] [address] Procedure Note Shlomo Mcdonough, DO - 10/04/2024 [...] imaged ethmoid air cells with mucosal thickening, ftflj-oolixxv-hkyi-left. Right maxillary sinus air-fluid level foamy secretions are new when compared tothe previous CT dated 08/14/2024. Partially imaged nasal septum has abiconvex curvature. Left joni bullosa is partially opacify. There is mucosal thickening in the nasal cavity, gtwlz-ocaxhmz-kmje-left. The mastoid air cells are predominantly clear. [...] suprahyoid neck skin marker placed by the mineral technologist. Adjacent right level 2B/5 lymph node [...] signed by Shlomo GODOY T: Report ID: [id number] Reading Location: [id number] Fany Keygucci AGUAYO IMG CT PROCEDURES Final Result * CT Neck Soft Tissue W Contrast (08/14/2024 10:00 AM BARREL BRANDER) Anatomical Region Laterality Modality Head and Neck N/A Computed Tomogra phy 08/14/2024 11:1 1 AM BARREL BRANDER Impressions 08/14/2024 7:09 PM BARREL BRANDER Postsurgical changes following right tonsillectomy and right neck dissection. No evidence of disease recurrence or cervical lymphadenopathy.. Dictated by: Hector Mcnally D.O. The radiology attending physician has personally reviewed this study, and had reviewed and/or edited this written report and agrees with it. Electronically signed by: Jarrod Evans MD, PHD Narrative 08/14/2024 7:09 PM BARREL BRANDER EXAMINATION: CT of the neck with contrast [...] are normal. The limited view of the [place] is unremarkable. The visualized portions [...] are normal. The limited view of the [place] is unremarkable. The visualized portions [...] signed by: Jarrod Evans MD, PHD Fany Mackey Yuridia AGUAYO IMG CT PROCEDURES Final Result * CT Chest with Contrast (08/14/2024 7:59 AM BARREL BRANDER) Anatomical Region Laterality Modality Body N/A Computed Tomogra phy 08/14/2024 8:11 AM BARREL BRANDER Impressions 08/14/2024 8:11 AM BARREL BRANDER No evidence of metastatic disease in the chest. Unchanged pulmonary nodules, stable in appearance since at least 2021 and likely benign. Electronically signed by: Denny Santo M.D. Narrative 08/14/2024 8:11 AM BARREL BRANDER EXAMINATION: Computed tomography of the chest with [...] Result * POCT creatinine (08/14/2024 7:54 AM BARREL BRANDER) [facility] Creatinine POC 1.2 0.7 - 1.3 mg/dL Blood 08/14/2024 7:54 AM BARREL BRANDER 08/14/2024 7:54 AM BARREL BRANDER Fany AGUAYO LAB POCT ORDERABLES - D EVICE Final Result [facility] Department [place] [address] * Stool DNA - Cologuard (09/04/2023 10:30 AM BARREL BRANDER) Pathologist [facility] Stool DNA - Cologuard Negative Negative [place] (CLIA #:[id number]) Comment: NEGATIVE TEST RESULT. A negative Cologuard [...] (Aquilino Loredo al, N Engl J Med 2014;370(14):3995-3930) The normal value (reference range) for this assay is negative. COLOGUARD RE-SCREENING RECOMMENDATION: Periodic colorectal cancer screening is an important part of preventive healthcare for asymptomatic individuals at average risk for colorectal cancer. Following a negative Cologuard result, the [place] Cancer Society and U.S. Multi-Society Task Force screening guidelines recommend a Cologuard re-screening interval of 3 years. References: [place] Cancer Society Guideline for Colorectal Cancer Screening: https://www.cancer.org/cancer/vjwcp-bfspdn-fxdpvs/bmtywotws-kawodkasb-ekkylll/ac s-rec ommendations.html.; Elvin DK, Orin DENISE, Uziel NievesK, Colorectal Cancer Screening: Recommendations for Physicians and Patients from the U.S. Multi-Society Task Force on Colorectal Cancer Screening , Am J Gastroenterology 2017; 112:9020-1023. TEST DESCRIPTION: Composite algorithmic analysis of stool [...] screened with both Cologuard and colonoscopy. (Aquilino Engle, N Engl J Med 2014;370(14):2230-6894.) Cologuard may produce a false negative or false positive result (no colorectal cancer or precancerous polyp present at colonoscopy follow up). A negative Cologuard test result does not guarantee the absence of CRC or advanced adenoma (pre-cancer). The current Cologuard screening interval is every 3 years. ([place] Cancer Society and U.S. Multi-Society Task Force). Cologuard performance data in a 10,000 patient pivotal study using colonoscopy as the reference method can be accessed at the following location: www.[employer]/results. Additional description of the Cologuard test process, warnings and precautions can be found at www.cologuard.com. Stool 09/04/2023 10:3 0 AM BARREL BRANDER 09/05/2023 11:51 PM BARREL BRANDER Jonathan Solis MD LAB BODY FLUIDS AND STOOLS ORDERABLES Final Result [facility] (CLIA #:[id number]) [place] [address] * PSA, total Blood (08/09/2023) SCRIBED PSA, Total 0.3 <4.0 - <4.0 Blood 08/09/2023 [facility] Provider LAB BLOOD ORDERABLES Aisha l Result from Last 3 Months or Most Recently Relevant to Health Maintenance Insurance [facility] CLAIMS [facility] Advance Directives For more information, please contact: [phone] * Full Code (Latest Code Status on File) Date Activated Date Inactivated Comments 01/16/2022 9:28 AM 01/18/2022 6:42 PM * Full Code Date Activated Date Inactivated Comments 01/09/2022 2:04 PM 01/11/2022 5:07 PM Care Teams Electromechanical Assembly Technician Relationship Specialty Start Date End Date Jonathan Solis MD [address] [place] [address] PCP - General Family Medicine 07/01/20 OppeNicolás blanco MD [address] [facility] [address] [place] [address] Medical Oncologist/Poultry Farm Laborer Medical Oncology 12/17/21 David Lee MD [address] [facility] [address] [place] [address] Consulting Physician Otolaryngology 12/26/21
--- OUTSIDE RECORDS SUMMARY | 2024-11-01 15:08 | XMS_ITS | Continuity of Care Document ---
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 It does not include entries that were removed or entered in error. Problem Status Onset Date Problem Type Date of Resolution Comments Source Hearing Loss, Sensorineural, Unspecified Active Condition [facility] visit for: issue repeat prescription Inactive Condition [facility] heartburn Active Condition DoD visit for: services physical Inactive Condition custodial physical performed. DoD Blood Pressure Isolated Elevated Inactive Condition pt to begi n 5-day BP check and follow up afterwards DoD acrochordon Active Condition follow u p as needed DoD upper respiratory infection Inactive Condition increase fluids DoD esophageal reflux Active Condition DoD bronchitis Active Condition DoD visit for: occupational health / fitness exam Inactive Condition DoD other interpersonal problem Active Condition DoD Medications Combined list of outpatient medications from Department of Defense and Veterans Affairs facilities.Medications provided include 1) outpatient medications from the last 15 months, and 2) patient-reported medications. Medication Details Route Status Patient Instructions Prescription Expires Prescription Number Last Dispense Date Ordering Provider Order Date Order Qty Source AMOX TR-POTASSIU M CLAVULANATE (AMOXICILLI N/POTASSIUM CLAV), 875-125 MG, TABLET, ORAL, SANDOZ, 20 ea. BOTTLE Active [id number] 2023 20 Pharmac y Data Transac tion Service Facilit y MELOXICAM (meloxicam) , 15 MG, TABLET, ORAL, [employer] 1000 ea. BOTTLE Active [id number] 2023 90 Pharmac y Data Transac tion Service Facilit y MELOXICAM (meloxicam) , 15 MG, TABLET, ORAL, PD-RX PHARM, 1000 ea. BOTTLE Active [id number] 2023 90 Pharmac y Data Transac tion Service Facilit y MELOXICAM (MELOXICAM) , 15MG, TABLET, ORAL, ZYDUS PHARMACEU, 500 ea. BOTTLE Active [id number] 2022 30 Pharmac y Data Transac tion Service Facilit y PREDNISONE (prednisone ), 20 MG, TABLET, ORAL, NOVITIUM/AN I PH, 500 ea. BOTTLE Active [id number] 4 2023 6 Pharmac y Data Transac tion Service Facilit y Allergies, Adverse Reactions, Alerts Combined list of allergies from Department of Defense and Veterans Affairs facilities. It does not include entries that were removed or entered in error. Substance Category Reaction Severity Reaction type Status Date Reported Comments Source No Known Allergies Drug allergy (disorder) active 09/23/2006 [facility] Immunizations Combined list of available immunizations from the Department of Defense and Veterans Affairs facilities. Immunization Series Date Given Administered By Site Reaction Lot Number CVX Code Drug Shelving Supervisor Status Comments Source influenza virus vaccine, split virus (incl. purified surface antigen)-reti red CODE 1 2004 Unknown, Provider 15 Transcribed (TRS) complet ed influenza virus vaccine, split virus (incl. purified surface antigen)- retired CODE DoD anthrax vaccine 7 2004 Unknown, Provider [id number] [employer] [facility] ([facility]) complet ed anthrax vaccine DoD typhoid vaccine, parenteral, other than acetone-kille d, dried 1 2004 Unknown, Provider [id number] Sanofi Pasteur ([facility]) complet ed typhoid vaccine, parentera l, other than acetone-k illed, dried DoD influenza virus vaccine, split virus (incl. purified surface antigen)-reti red CODE 1 2004 Unknown, Provider [id number] 15 Sanofi Pasteur ([facility]) complet ed influenza virus vaccine, split virus (incl. purified surface antigen)- retired CODE DoD anthrax vaccine 6 2003 Unknown, Provider [id number] [facility] [employer] [place] ([facility]) complet ed anthrax vaccine DoD tuberculin skin test; purified protein derivative solution, intradermal 1 2003 Unknown, Provider [id number] 96 [place] ([place]) complet ed tuberculi n skin test; purified protein derivativ e solution, intraderm al DoD anthrax vaccine 5 2002 Unknown, Provider [id number] [facility] ([facility]) complet ed anthrax vaccine DoD influenza virus vaccine, whole virus 1 2002 Unknown, Provider [id number] 16 [employer] (PWJ) complet ed influenza virus vaccine, whole virus DoD tuberculin skin test; purified protein derivative solution, intradermal 1 2002 Unknown, Provider [id number] 96 [place] (PD) complet ed tuberculi n skin test; purified protein derivativ e solution, intraderm al DoD anthrax vaccine 4 2002 Unknown, Provider [id number] [facility] Operations [place] ([facility]) complet ed anthrax vaccine DoD vaccinia (smallpox) vaccine 1 2002 Unknown, Provider [id number] 75 [employer] (WAL) complet ed vaccinia (smallpox ) vaccine DoD typhoid Vi capsular polysaccharid e vaccine 1 2002 Unknown, Provider [id number] Sanofi Pasteur ([facility]) complet ed typhoid Vi capsular polysacch aride vaccine DoD anthrax vaccine 3 2001 Unknown, Provider [id number] [facility] complet ed anthrax vaccine DoD anthrax vaccine 2 2001 Unknown, Provider [id number] [facility]) complet ed anthrax vaccine DoD meningococcal polysaccharid e vaccine (MPSV4) 1 2001 Unknown, Provider [id number] 32 Jenae (CON) complet ed meningoco ccal polysacch aride vaccine (MPSV4) DoD influenza virus vaccine, whole virus 1 2001 Unknown, Provider [id number] 16 Sanofi Pasteur ([facility]) complet ed influenza virus vaccine, whole virus DoD anthrax vaccine 1 2001 Unknown, Provider [id number] [facility]) complet ed anthrax vaccine DoD tuberculin skin test; purified protein derivative solution, intradermal 1 2001 Unknown, Provider 96 () complet ed tuberculi n skin test; purified protein derivativ e solution, intraderm al DoD influenza virus vaccine, whole virus 1 2000 Unknown, Provider [id number] 16 Sanofi Pasteur ([facility]MC) complet ed influenza virus vaccine, whole virus DoD tuberculin skin test; purified protein derivative solution, intradermal 1 2000 Unknown, Provider [id number] 96 Jenae (CON) complet ed tuberculi n skin test; purified protein derivativ e solution, intraderm al DoD influenza virus vaccine, whole virus 1 1999 Unknown, Provider 16 () complet ed influenza virus vaccine, whole virus DoD tuberculin skin test; purified protein derivative solution, intradermal 1 1999 Unknown, Provider [id number] 96 [facility] ([facility] complet ed tuberculi n skin test; purified protein derivativ e solution, intraderm al DoD yellow fever vaccine 1 1999 Unknown, Provider [id number] 37 [facility] ed yellow fever vaccine DoD influenza virus vaccine, whole virus 3 1998 Unknown, Provider [id number] 16 [facility] complet ed influenza virus vaccine, whole virus DoD tuberculin skin test; purified protein derivative solution, intradermal 1 1998 Unknown, Provider [id number] 96 Sanofi Pasteur ([facility]) complet ed tuberculi n skin test; purified protein derivativ e solution, intraderm al DoD influenza virus vaccine, whole virus 2 1997 Unknown, Provider 16 () complet ed influenza virus vaccine, whole virus DoD tetanus and diphtheria toxoids, adsorbed, preservative free, for adult use (2 Lf of tetanus toxoid and 2 Lf of diphtheria toxoid) 1 1997 Unknown, Provider 09 () complet ed tetanus and diphtheri a toxoids, adsorbed, preservat eva free, for adult use (2 Lf of tetanus toxoid and 2 Lf of diphtheri a toxoid) DoD typhoid vaccine, live, oral 1 1997 Unknown, Provider [id number] [place] ([place]active) ([place]) complet ed typhoid vaccine, live, oral DoD tuberculin skin test; purified protein derivative solution, intradermal 1 1997 Unknown, Provider [id number] [facility] ([place]) complet ed tuberculi n skin test; purified protein derivativ e solution, intraderm al DoD influenza virus vaccine, whole virus 1 1996 Unknown, Provider [id number] 16 [place] ([place]) ([place]) complet ed influenza virus vaccine, whole virus DoD hepatitis A vaccine, adult dosage 2 1996 Unknown, Provider 52 () complet ed hepatitis A vaccine, adult dosage DoD hepatitis A vaccine, adult dosage 2 1995 Unknown, Provider [id number] 52 [place]) complet ed hepatitis A vaccine, adult dosage DoD hepatitis A vaccine, adult dosage 1 1995 Unknown, Provider [id number] 52 [place] ([place]) complet ed hepatitis A vaccine, adult dosage DoD yellow fever vaccine 1 1988 Unknown, Provider 37 () complet ed yellow fever vaccine DoD trivalent poliovirus vaccine, live, oral 1 1986 Unknown, Provider 02 () complet ed trivalent polioviru s vaccine, live, oral DoD measles, mumps and rubella virus vaccine 1 1986 Unknown, Provider 03 () complet ed measles, mumps and rubella virus vaccine DoD hepatitis B vaccine, adult dosage 3 1986 Unknown, Provider [id number] [place] ([place] ([place]) complet ed hepatitis B vaccine, adult dosage DoD Encounters Combined list of: 1) Encounters from Department of Veterans Affairs facilities going back up to thelast 18 months. 2) Encounters from the Department of Defense facilities going back up to 280 months. 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 x4days VANESSA LEVINE 07/10 Released w/o Limitations [address] [place], [place] [address]B [facility]F amily Practic e Non-GME FHI2) [address] [place] [address] Jonathan B [facility] Non-GME FHI2) OUTPATIENT [id number] BELKIS Peñaloza 08/14 Released w/o Limitations [address] [place] [address])(F amily Practic e Non-GME FHI2) [address] [place] [address])([facility] Non-GME FHI2) TELE CONSULT [id number] Rx Renewed Lansopr azole 30MG TAYA MISTRY 10/[address] [place] [address])(F amily Practic e Non-GME FHI2) [address] [place] [address])([facility] Non-GME FHI1) OUTPATIENT [id number] COLD PLUS CONGEST JEREMY BARRIENTOS Jazmin 12/21 Released w/o Limitations [address] [place] [address])(F amily Practic e Non-GME FHI1) [address] [place] [address])([facility] Non-GME FHI2) OUTPATIENT [id number] SKIN TAGS UNDER ARM EVALUAT ION VANESSA LEVINE 03/23 Released w/o Limitations [address] [place] [address])(F amily Practic e Non-GME FHI2) [address] [place] [address])([facility] Non-GME FHI2) OUTPATIENT [id number] 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 07/27 Released w/o Limitations [address] [place] [address])(F amily Practic e Non-GME FHI2) [address] [place] [address])([facility] Non-GME FHI1) TELE CONSULT [id number] med refill TAYA MISTRY 09/[address] [place] [address])(F amily Practic e Non-GME FHI1) Procedures Combined list of: 1) Procedures from Department of Veterans Affairs facilities going back up to thelast 18 months, not all VA non-surgical procedures are included; 2) All procedures from the Department of Defense facilities. Procedure Procedure Type Code Date Perfomer Jennifer davies Destruction Of Benign Lesion By Cryosurgery 03/23/2006 LAISHA LEVINE Destruction Of Benign Lesion By Any Method One Lesion 03/23/2006 VANESSA LEVINE Destruct Of Benign Lesion By Any Method Second Through 14 03/23/2006 VANESSA LEVINE Physician Supervised Group Educational Services 01/08/2005 BUDDY ZAMORANO [facility] Psychiatric Diagnostic Evaluation Review of Records and Reports Psychiatric Diagnostic Evaluation Review of Records and Reports [id number] 01/08/2005 BUDDY ZAMORANO [facility] ELECTROCARDIOGRAM, ROUTINE ECG WITH AT LEAST 12 LEADS; INTERPRETATION AND REPORT ONLY 02/26/2004 DoD DESTRUCT (EG, LASER SURGERY, ELECTROSURGERY, CRYOSURGERY, CHEMOSURGERY, SURGICAL CURETTEMENT), PREMALIGNANT LESIONS (EG, ACTINIC KERATOSES); 2ND THRU 14 LESIONS, EA (LIST SEP ADDITION CD, 1ST LESION) 03/23/2006 [facility] VISUAL FIELD EXAMINATION, UNI OR BILATERAL, WITH MEDICAL DIAGNOSTIC EVAL; INTERMEDIATE EXAM (EG, AT LEAST 2 ISOPTERS ON GOLDMANN PERIMETER, OR SEMIQUANT, AUTO SUPRATHRESHOLD SCREEN PROGRAM, BAIRES 01/12/2005 [facility] PHYS/OTH QUALIFIED HEALTH UPPER MARKER QUALIFIED,EDUCATION,TR AIN,LICENSURE/REGULATI ON (WHEN APPLICABLE) EDUC SER RENDERED TO PATS IN A GRP SETTING (EG,,OBESITY,O R DIABETIC INSTRUCT) 01/08/2005 [facility] ELECTROCARDIOGRAM, ROUTINE ECG WITH AT LEAST 12 LEADS; WITH INTERPRETATION AND REPORT 06/05/2004 [facility] URINALYSIS, BY DIP STICK OR TABLET REAGENT FOR BILIRUBIN, GLUCOSE, HEMOGLOBIN, KETONES, LEUKOCYTES, NITRITE, PH, PROTEIN, SPEC GRAVITY, UROBILINOGEN, ANY NUMBER OF CONSTITUENTS; WITH MICROSCOPY 08/30/2003 [facility] PRESSURIZED/NONPRESS INHAL TREAT FOR AC AIRWAY OBSTRUCT,THERAP PURPOSE &/FOR DIAG PURP SUCH SPUTUM INDUCTION W AN AEROSOL GEN,NEBULIZER,METER DOSE INHALER/INTERMIT POSIT PRESS BREATHING (IPPB) DEV 11/13/2002 [facility] HANDLING AND/OR CONVEYANCE OF SPECIMEN FOR TRANSFER FROM THE OFFICE TO A LABORATORY 11/04/2002 Do D PHYS/OTH QUALIFIED HEALTH UPPER MARKER QUALIFIED,EDUCATION,TR AIN,LICENSURE/REGULATI ON (WHEN APPLICABLE) EDUC SER RENDERED TO PATS IN A GRP SETTING (EG,,OBESITY,O R DIABETIC INSTRUCT) 08/31/2001 DoD PHYS/OTH QUALIFIED HEALTH UPPER MARKER QUALIFIED,EDUCATION,TR AIN,LICENSURE/REGULATI ON (WHEN APPLICABLE) EDUC SER RENDERED TO PATS IN A GRP SETTING (EG,,OBESITY,O R DIABETIC INSTRUCT) 08/12/2001 [facility] PSYCHIATRIC DIAGNOSTIC INTERVIEW EXAMINATION 07/13/2001 [facility] PSYCHIATRIC DIAGNOSTIC INTERVIEW EXAMINATION 03/07/2001 DoD THERAPEUTIC, PROPHYLACTIC OR DIAGNOSTIC INJECTION (SPECIFY MATERIAL INJECTED); SUBCUTANEOUS OR INTRAMUSCULAR 11/01/2000 DoD VASOVASOSTOMY, VASOVASORRHAPHY 06/04/2000 DoD Social History Combined list of available smoking, tobacco, and other social history from Department of Defense and Veterans Affairs facilities. Social History Type Response Date Comment Sour e This section is an empty social history section. DoD
[2024-11-01 15:15] LABS: EDCOVIDSCREEN Positive (Negative); EDINFLUASCREEN Negative (Negative); EDINFLUBSCREEN Negative (Negative)
== END 2024-11-01 15:19 | disposition home or self-care (01) ==
PROVIDERS: Emergency Provider Nurse Practitioner Family; PCP Family Medicine
DX: U07.1 COVID-19 (principal)
CPT/HCPCS: 87426; 87804; 99212; G0463

== ENCOUNTER 2025-04-06 09:26 | Outpatient (CLI) | payer OTHER, SELFPAY ==
--- NOTE | ~2025-04-06 | XR_ITS ---
EXAM/ PROCEDURE: XR shoulder RT min 2V - 04/06/2025 9:45 CDT HISTORY: 59 years old Male with ACUTE PAIN OF R SHOULDER;CERVICAL RADICULOPATHY COMPARISON: None available TECHNIQUE: Four view(s) FINDINGS/ IMPRESSION: There are no fractures or dislocations.Joint space narrowing, subchondral sclerosis, subchondral cyst formation and osteophyte formation, compatible with mild osteoarthritis. Surgical clips in the right side of the neck are seen. Reviewed, dictated and finalized at location A.
--- NOTE | ~2025-04-06 | XR_ITS ---
[id number] Ordering provider: Annita Miranda, PA History: . ACUTE PAIN OF R SHOULDER;CERVICAL RADICULOPATHY . Comparison: None. FINDINGS: VERTEBRAL BODIES: Normal height and alignment. No visible fracture or subluxation. The dens is intact . Degenerative changes with early osteophytes.. DISK SPACES: Well maintained. PARASPINOUS SOFT TISSUES: No prevertebral soft tissue swelling. Postoperative changes seen anteriorly on the right. IMPRESSION: No acute osseous abnormality cervical spine. Reviewed, dictated and finalized at location A.
--- OUTSIDE RECORDS SUMMARY | 2025-04-06 09:33 | XMS_ITS | Encounter Summary ---
Author Organization [facility] Healthcare Address [address] [place] [address] Care Team Providers Care Machine Filler Shredder Name Role Phone Nicolás Barnes MD Unavailable [phone] David Lee MD Unavailable [phone] Annita Miranda Primary Care Provider [phone] Reason for Referral * Diagnostic Imaging (Routine) - Closed Specialty Diagnoses / Procedures Referred By Contac t Referred To Contact Diagnoses Cervical radiculopathy at C5 Neck pain Procedures XR Spine Cervical 2 or 3 Views Annita Miranda PA [address] [place] [id number] Phone: tel: fax: External Order Referral ID Status Reason Start Date Expiration Date Visits Re quested Visits Authorized [id number] Closed 04/05/2025 05/05/2026 1 1 Reason for Visit * Reason Comments Shoulder Pain Right shoulder pain x 4 days Encounter Details Date Type Department Care Team (Latest Contact Info) Description 04/05/2025 2:30 PM CDT Office Visit [facility] Family Medicine [address] [phone] Annita Miranda PA [address] [place], [place] [id number] Cervical radiculopathy at C5 (Primary Dx); Neck pain; Acute pain of right shoulder; Uncontrolled hypertension; Hyperglycemia; Screening, ischemic heart disease; Screening for diabetes mellitus; Screening for blood disease; Screening PSA (prostate specific antigen) Social History Tobacco Use Types Packs/Day Years [...] How often do you attend pentecostal or confucianist serv ices? Patient declined 01/07/2022 Do you [...] you have a drink containing alcohol? Never 04/05/2025 Q2: How many drinks containi ng alcohol do you have on a typical day when you are drinking? Patient does not drink Q3: How often do you have si x or more drinks on one occasion? Never 04/05/2025 Overall Financial Resource Strain (CARDIA) Answe r Date Recorded How hard is it for you to pa y for the very basics like food, housing, medical care, and heating? 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 [employer] Gender Identity Not on file Sexual Orientation Not on file documented as of this encounter Last Filed Vital Signs Vital Sign Reading Time Taken Comments Blood Pressure 176/98 04/05/2025 3:01 PM CDT Pulse 69 04/05/2025 2:39 PM CDT Temperature 36.4 C (97.5 F) 04/05/2025 2:39 PM CDT Respiratory Rate 16 04/05/2025 2:39 PM CDT Oxygen Saturation 97% 04/05/2025 2:39 PM CDT Inhaled Oxygen Concentration - - Weight 132.2 kg (291 lb 6.4 oz) 04/05/2025 2:39 PM CDT Height 180.3 cm (5' 11) 04/05/2025 2:39 PM CDT Body Mass Index 40.64 04/05/2025 2:39 PM CDT documented in this encounter Functional Status * Audit-C Score Answer Date of Assessment Author 0 04/05/2025 2:40 PM CDT Kai Young MA * Question Answer Date of Assessment Author Q1: How often do you have a drink containing alcohol? Never 04/05/2025 2:40 PM PATRICIAT Verna Young MA Q2: How many drinks containing alcohol do you have on a typical day when you are drinking? Patient does not drink 04/05/2025 2:40 PM Verna Phillips MA Q3: How often do you have six or more drinks on one occasion? Never 04/05/2025 2:40 PM CDT Verna Young MA documented as of this encounter Ordered Prescriptions Prescription Sig Dispense Quantity Refills Last Filled Start Date End Date lisinopriL (PRINIVIL,ZESTRIL) 20 mg tabletIndications:U ncontrolled hypertension Take 1 tablet (20 mg total) by mouth daily 30 tablet 1 04/05/2025 6 cyclobenzaprine (FLEXERIL) 10 mg tabletIndications:C ervical radiculopathy at C5 Take 1 tablet (10 mg total) by mouth 3 (three) times a day as needed for muscle spasms 30 tablet 04/05/2025 5 documented in this encounter Progress Notes * Annita Miranda PA - 04/05/2025 2:30 PM CDT Images from the original note were not included. This patient has verbally consented to recording this visit in order to utilize AI technology in generating this note. Subjective/Objective Patient ID: Eric Bautista is a 59 y.o. male. Chief Complaint Shoulder Pain (Right shoulder pain x 4 days) Shoulder Pain Associated symptoms include numbness (index finger right hand). Pertinent negatives include no fever. History of Present Illness Eric Bautista is a 59 year old male who presents with shoulder pain. He has experienced shoulder pain since Wednesday night, initially accompanied by a stiff neck. The neck pain resolved after a day and a half, but the shoulder pain persists, particularly in the evening and at night. The pain is described as a mild, constant, 'annoying' sensation, josé miguel to 'somebody squeezing your arm', with occasional sharp pain when moving the arm incorrectly while lying down. The pain is exacerbated by lying on his stomach or shoulder, necessitating sleeping on his back. He notes numbness in one finger, which began two to three days ago, shortly after the shoulder painstarted. No history of shoulder or neck pain prior to this episode. He attempted swimming the previous night, which aggravated the pain, particularly when underwater. 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 He is followed up with scans every six months. No current pain related to his past cancer treatment. He acknowledges a previous slightly elevated blood pressure reading a few months ago. He does not monitor his blood pressure regularly at home despite having a cuff available. No current chest pain or history of taking medication for hypertension. He mentions a recent increase in water intake as part of a work challenge, consuming approximately 190 ounces daily, which he calculates based on his weight. He denies feeling swollen or experiencingweight changes. He has no history of diabetes or high cholesterol and has not had recent prostate-specific antigen (PSA) testing. 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 Review of Systems Constitutional: Negative for fatigue, fever and unexpected weight change. Respiratory: Negative for cough and shortness of breath. Cardiovascular: Negative for chest pain, palpitations and leg swelling. Gastrointestinal: Negative for abdominal pain. Musculoskeletal: Positive for arthralgias (right shoulder pain) and neck pain (initally but better now). Negative for neck stiffness. Skin: Negative for rash. Neurological: Positive for numbness (index finger right hand). Negative for dizziness and headaches. Vitals: 04/05/25 1439 04/05/25 1501 BP: (!) 184/86 (!) 176/98 BP Location: Left arm Patient Position: Sitting Pulse: 69 Resp: 16 Temp: 36.4 ??C (97.5 ??F) TempSrc: Temporal SpO2: 97% Weight: 132.2 kg (291 lb 6.4 oz) Height: 180.3 cm (5' 11) Physical Exam VITALS: BP- 176/98 MUSCULOSKELETAL: Full range of motion in shoulder. Neck pain on rotation. Physical Exam Vitals reviewed. Constitutional: Appearance: Normal appearance. He is well-developed. He is obese. HENT: Head: Normocephalic and atraumatic. Eyes: Extraocular Movements: Extraocular movements intact. Conjunctiva/sclera: Conjunctivae normal. Neck: Comments: + formainal compression extension and right rotation Cardiovascular: Rate and Rhythm: Normal rate and regular rhythm. Heart sounds: Normal heart sounds. No murmur heard. No friction rub. No gallop. Pulmonary: Effort: Pulmonary effort is normal. Breath sounds: Normal breath sounds. No wheezing, rhonchi or rales. Musculoskeletal: Right shoulder: Normal. Cervical back: Neck supple. No pain with movement, spinous process tenderness or muscular tenderness. Normal range of motion. Lymphadenopathy: Cervical: No cervical adenopathy. Skin: General: Skin is warm and dry. Findings: No rash. Neurological: Mental Status: He is alert and oriented to person, place, and time. Motor: Motor function is intact. No weakness. Deep Tendon Reflexes: Reflex Scores: Bicep reflexes are 1+ on the right side and 1+ on the left side. Brachioradialis reflexes are 1+ on the right side and 1+ on the left side. Patellar reflexes are 1+ on the right side and 1+ on the left side. Psychiatric: Mood and Affect: Mood normal. Behavior: Behavior normal. Thought Content: Thought content normal. Judgment: Judgment normal. Results LABS Glucose: 114 mg/dL Assessment & Plan Cervical radiculopathy at C5 Orders: XR Spine Cervical 2 or 3 Views; Future cyclobenzaprine (FLEXERIL) 10 mg tablet; Take 1 tablet (10 mg total) by mouth 3 (three) times a dayas needed for muscle spasms Neck pain Orders: XR Spine Cervical 2 or 3 Views; Future Acute pain of right shoulder Orders: XR Shoulder Right 2+ Vw; Future Uncontrolled hypertension Orders: lisinopriL (PRINIVIL,ZESTRIL) 20 mg tablet; Take 1 tablet (20 mg total) by mouth daily Hyperglycemia Orders: Comprehensive metabolic panel; Future Hemoglobin A1c; Future Screening, ischemic heart disease Orders: Lipid panel; Future Screening for diabetes mellitus Orders: Comprehensive metabolic panel; Future Screening for blood disease Orders: CBC without differential; Future Screening PSA (prostate specific antigen) Orders: PSA screen; Future Assessment & Plan Cervical Radiculopathy Presents with persistent shoulder pain since Wednesday night, initially with a stiff neck. Neck pain resolved, but shoulder pain remains mild, constant, and gnawing, with occasional sharp pain on certain movements. Numbness in one finger began shortly after shoulder pain onset. Pain worsens at night, hindering sleep on his stomach. Physical examination suggests cervical radiculopathy, likely involving the C5 nerve root, with no shoulder motion restriction or traumatic injury. Suspected nerve compression from awkward sleeping position, causing referred pain and numbness. - Order neck X-rays to evaluate for cervical radiculopathy. - Prescribe Flexeril (cyclobenzaprine) as a muscle relaxant for nighttime use. - Resume Mobic (meloxicam) for pain management. - Advise use of a heating pad as needed. - Educate on sleeping positions to alleviate pain, such as placing the hand on top of the head. Hypertension Blood pressure is elevated at 176/98 mmHg. He has not been monitoring it as advised. Reports high work stress and increased water intake, potentially contributing to hypertension. Risk of stroke due to elevated blood pressure. Lisinopril prescribed to manage hypertension. Advised to reduce water intake to prevent complications from excessive volume. - Prescribe lisinopril 20 mg daily for hypertension management. - Advise reducing water intake to 100 ounces per day. - Instruct to monitor blood pressure at home daily, with feet flat on the floor after resting for 15 minutes. - Recommend the DASH diet to help lower blood pressure. - Keep a blood pressure log as previously discussed and follow-up with me in 2 weeks General Health Maintenance No recent labs or screenings. Last glucose level was slightly elevated at 114 mg/dL. No recent PSA test for prostate cancer screening. Fasting labs ordered to assess for diabetes and prostate health before initiating steroids for cervical radiculopathy. - Order fasting labs, including glucose and PSA levels, to assess for diabetes and prostate health. - Advise obtaining labs at [facility]. Follow-up Follow-up scheduled to assess treatment effectiveness and condition management. Appointment in two weeks to review blood pressure management and lab results. - Schedule a follow-up appointment in two weeks to review blood pressure management and lab results. Return in about 2 weeks (around 04/19/2025) for Annual physical, Next scheduled follow up. There may be grammatical errors in this note due to use of voice recognition software. documented in this encounter Plan of Treatment Scheduled Orders Name Type Priority Associated Diagnoses Orde r Schedule XR Spine Cervical 2 or 3 Views Imaging Schedule Routine, Read Routine (OP Routine) Cervical radiculopathy at C5 Neck pain Expected: 04/05/2025, Expires: 04/05/2026 XR Shoulder Right 2+ Vw Imaging Schedule Routine, Read Routine (OP Routine) Acute pain of right shoulder Expected: 04/05/2025, Expires: 04/05/2026 Lipid panel Lab Routine Screening, ischemic heart disease Expected: 04/05/2025, Expires: 04/05/2026 Comprehensive metabolic panel Lab Routine Hyperglycemia Screening for diabetes mellitus Expected: 04/05/2025, Expires: 04/05/2026 CBC without differential Lab Routine Screening for blood disease Expected: 04/05/2025, Expires: 04/05/2026 PSA screen Lab Routine Screening PSA (prostate specific antigen) Expected: 04/05/2025, Expires: 04/05/2026 Hemoglobin A1c Lab Routine Hyperglycemia Expected: 04/05/2025, Expires: 04/05/2026 documented as of this encounter Visit Diagnoses Diagnosis Cervical radiculopathy at C5- Primary Neck pain Cervicalgia Acute pain of right shoulder Uncontrolled hypertension Hyperglycemia Other abnormal glucose Screening, ischemic heart disease Screening for ischemic heart disease Screening for diabetes mellitus Screening for blood disease Screening for unspecified disorder of blood and blood-forming organs Screening PSA (prostate specific antigen) Special screening for malignant neoplasm of prostate documented in this encounter Care Teams Machine Filler Shredder Relationship Specialty Start Date End Date Annita Miranda PA [facility] [address] [place] [address] PCP - General Family Medicine 01/29/25 OpNicolás page MD [id number] [place] [address] Medical Oncologist/Peripheral Edp Equipment Operator Medical Oncology 12/17/21 David Lee MD [id number] [place] [address] Consulting Physician Otolaryngology 12/26/21 documented as of this encounter
--- OUTSIDE RECORDS SUMMARY | 2025-04-06 09:33 | XMS_ITS | Continuity of Care Document ---
Author Name [facility] Organization [facility] Care Team Providers Care Research Compliance Specialist Name Role Phone [facility] Unavailable Unavailable Problems Combined list of problems from Department of Defense and Veterans Affairs facilities. It does not include entries that were removed or entered in error. Problem Status Onset Date Problem Type Date of Resolution Comments Source Hearing Loss, Sensorineural, Unspecified Active Condition [facility] visit for: issue repeat prescription Inactive Condition [facility] heartburn Active Condition DoD visit for: services physical Inactive Condition usp physical performed. DoD Blood Pressure Isolated Elevated Inactive Condition pt to begi n 5-day BP check and follow up afterwards DoD [place] Active Condition follow u p as needed DoD UPPER RESPIRATORY INFECTION Inactive Condition increase fluids DoD ESOPHAGEAL REFLUX Active Condition DoD BRONCHITIS Active Condition [facility] visit for: occupational health / fitness exam Inactive Condition DoD OTHER INTERPERSONAL PROBLEM Active Condition DoD Medications Combined list of [...] TABLET, ORAL, SANDOZ, 20 ea. BOTTLE Active [id number] 2023 20 Pharmac y Data Transac tion Service Facilit y PREDNISONE (prednisone ), 20 MG, TABLET, ORAL, NOVITIUM/AN I PH, 500 ea. BOTTLE Active [id number] 2023 6 Pharmac y Data Transac tion Service Facilit y Allergies, Adverse Reactions, Alerts Combined list of allergies from Department of Defense and Veterans Affairs facilities. It does not include entries that were removed or entered in error. Substance Category Reaction Severity Reaction type Status Date Reported Comments Source No Known Allergies Drug allergy (disorder) active 09/23/2006 [facility] Immunizations Combined list of available immunizations from the Department of Defense and Veterans Affairs facilities. Immunization Series Date Given Administered By Site Reaction Lot Number CVX Code Drug Patient Flow Coordinator Status Comments Source influenza virus vaccine, split virus (incl. purified surface antigen)-reti red CODE 1 2004 Unknown, Provider 15 Transcribed (TRS) complet ed influenza virus vaccine, split virus (incl. purified surface antigen)- retired CODE DoD anthrax vaccine 7 2004 Unknown, Provider [id number] 24 [facility] ([facility]) complet ed anthrax vaccine DoD typhoid vaccine, parenteral, other than acetone-kille d, dried 1 2004 Unknown, Provider [id number] 41 Sanofi Pasteur ([facility]) complet ed typhoid vaccine, parentera l, other than acetone-k illed, dried DoD influenza virus vaccine, split virus (incl. purified surface antigen)-reti red CODE 1 2004 Unknown, Provider [id number] 15 Sanofi Pasteur ([facility]) complet ed influenza virus vaccine, split virus (incl. purified surface antigen)- retired CODE DoD anthrax vaccine 6 2003 Unknown, Provider [id number] 24 [facility] ([facility]) complet ed anthrax vaccine DoD tuberculin skin test; purified protein derivative solution, intradermal 1 2003 Unknown, Provider [id number] 96 [place] (PD) complet ed tuberculi n skin test; purified protein derivativ e solution, intraderm al DoD anthrax vaccine 5 2002 Unknown, Provider [id number] 24 [facility] ([facility]) complet ed anthrax vaccine DoD influenza virus vaccine, whole virus 1 2002 Unknown, Provider [id number] 16 [employer] (PW[employer]) complet ed influenza virus vaccine, whole virus DoD tuberculin skin test; purified protein derivative solution, intradermal 1 2002 Unknown, Provider [id number] 96 [place] (PD) complet ed tuberculi n skin test; purified protein derivativ e solution, intraderm al DoD anthrax vaccine 4 2002 Unknown, Provider [id number] 24 [facility] ([facility]) complet ed anthrax vaccine DoD vaccinia (smallpox) vaccine 1 2002 Unknown, Provider [id number] 75 Sid (KETURAH) complet ed vaccinia (smallpox ) vaccine DoD typhoid Vi capsular polysaccharid e vaccine 1 2002 Unknown, Provider [id number] Sanofi Pasteur ([facility]) complet ed typhoid Vi capsular polysacch aride vaccine DoD anthrax vaccine 3 2001 Unknown, Provider [id number] [facility] complet ed anthrax vaccine DoD anthrax vaccine 2 2001 Unknown, Provider [id number] [facility] complet ed anthrax vaccine DoD meningococcal polysaccharid e vaccine (MPSV4) 1 2001 Unknown, Provider [id number] 32 [facility] complet ed meningoco ccal polysacch aride vaccine (MPSV4) DoD influenza virus vaccine, whole virus 1 2001 Unknown, Provider [id number] 16 Sanofi Pasteur ([facility]) complet ed influenza virus vaccine, whole virus DoD anthrax vaccine 1 2001 Unknown, Provider [id number] 24 [facility] ([facility]) complet ed anthrax vaccine DoD tuberculin skin test; purified protein derivative solution, intradermal 1 2001 Unknown, Provider 96 () complet ed tuberculi n skin test; purified protein derivativ e solution, intraderm al DoD influenza virus vaccine, whole virus 1 2000 Unknown, Provider [id number] 16 Sanofi Pasteur ([facility]) complet ed influenza virus vaccine, whole virus DoD tuberculin skin test; purified protein derivative solution, intradermal 1 2000 Unknown, Provider [id number] 96 [employer] (CON) complet ed tuberculi n skin test; purified protein derivativ e solution, intraderm al DoD influenza virus vaccine, whole virus 1 1999 Unknown, Provider 16 () complet ed influenza virus vaccine, whole virus DoD tuberculin skin test; purified protein derivative solution, intradermal 1 1999 Unknown, Provider [id number] 96 [employer] (CON) complet ed tuberculi n skin test; purified protein derivativ e solution, intraderm al DoD yellow fever vaccine 1 1999 Unknown, Provider [id number] 37 Jenae (CON) complet ed yellow fever vaccine DoD influenza virus vaccine, whole virus 3 1998 Unknown, Provider [id number] 16 [employer] (CON) complet ed influenza virus vaccine, whole virus DoD tuberculin skin test; purified protein derivative solution, intradermal 1 1998 Unknown, Provider [id number] 96 Sanofi Pasteur ([facility]) complet ed tuberculi n skin test; purified [...] vaccine, live, oral 1 1997 Unknown, Provider [id number] 25 [place] ([place] ([place]) complet ed typhoid vaccine, live, oral DoD tuberculin skin test; purified protein derivative solution, intradermal 1 1997 Unknown, Provider [id number] [facility] () complet ed tuberculi n skin test; purified protein derivativ e solution, intraderm al DoD influenza virus vaccine, whole virus 1 1996 Unknown, Provider [id number] 16 [place] complet ed influenza virus vaccine, whole virus DoD hepatitis A vaccine, adult dosage 2 1996 Unknown, Provider 52 () complet ed hepatitis A vaccine, adult dosage DoD hepatitis A vaccine, adult dosage 2 1995 Unknown, Provider [id number] 52 [place] complet ed hepatitis A vaccine, adult dosage DoD hepatitis A vaccine, adult dosage 1 1995 Unknown, Provider [id number] 52 [place] complet ed hepatitis A vaccine, adult dosage [...] vaccine, adult dosage 3 1986 Unknown, Provider [id number] 43 [place]) complet ed hepatitis B vaccine, adult dosage DoD Encounters Combined list of: 1) Encounters from Department of Veterans Affairs facilities going backup to the last 18 months, not all VA inpatient encounters are included; 2) Encounters from the Department of Defense facilities going backup to 280 months. Location Location Details Encounter Type Encounter Number Reason For Visit Attending Provider ADM Date DC Date Status Disposition Source [address] [place] [address] Jonathan GUTIERREZ [facility]Fam dewey Practice Non-GME FHI1) OUTPATIENT [id number] JULIA Talbot 01/05 Released w/o Limitations [address] [place] [address] Jonathan MARTINB [facility])(F amily Practic e Non-GME FHI1) [address] [place] [address] Jonathan MARTINB [facility]) OUTPATIENT [id number] deploy ent NEHA Still 01/08 Released w/o Limitations [address] [place] [address] Jonathan MARTINB [facility]) [address] [place] [address] Jonathan GUTIERREZ [facility]Fam dewey Practice Non-GME FHI2) OUTPATIENT [id number] cough/c hest congest ion/fev er 101. x4days VANESSA LEVINE 07/10 Released w/o Limitations [address] [place] [address] Jonathan MARTINB [facility])(F amily Practic e Non-GME FHI2) [address] [place] [address] Jonathan MARTINB [facility]Fam dewey Practice Non-GME FHI2) OUTPATIENT [id number] BELKIS Peñaloza 08/14 Released w/o Limitations [address] [place] [address] Jonathan MARTINB [facility])(F amily Practic e Non-GME FHI2) [address] [place] [address] [employer] [facility]Fam dewey Practice Non-GME FHI2) TELE CONSULT [id number] Rx Renewed Lansopr azole 30MG TAYA MISTRY 10/[address] [place] [address] Jonathan MARTINB [facility])(F amily Practic e Non-GME FHI2) [address] [place] [address] [employer] [facility]Fam dewey Practice Non-GME FHI1) OUTPATIENT [id number] COLD PLUS CONGEST ION JEREMY MCQUEEN 12/21 Released w/o Limitations [address] [place] [address] Jonathan [facility])(F amily Practic e Non-GME FHI1) [address] [place] [address] Jonathan [facility])([facility] Practice Non-GME FHI2) OUTPATIENT [id number] SKIN TAGS UNDER ARM EVALUAT VANESSA CANADA L 03/23 Released w/o Limitations [address] [place] [address] Jonathan [facility])(F amily Practic e Non-GME FHI2) [address] [place] [address] Jonathan [facility])([facility] Practice Non-GME FHI2) OUTPATIENT [id number] 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 07/27 Released w/o Limitations [address] [place] [address] Group Jonathan [facility])(F amily Practic e Non-GME FHI2) [address] [place] [address] Jonathan [facility]) TELE CONSULT [id number] TAYA Hill 09/[address] [place] [address] Jonathan [facility])(F amily Practic e Non-GME FHI1) Procedures Combined list of: 1) Procedures from Department of Veterans Affairs facilities going back up to thelast 18 months, not all VA non-surgical procedures are included; 2) All procedures from the Department of Defense facilities. Procedure Procedure Type Code Date Perfomer Comments [facility] e ELECTROCARDIOGRAM, ROUTINE ECG WITH AT LEAST 12 LEADS; INTERPRETATION AND REPORT ONLY 02/26/2004 [facility] DESTRUCT (EG, LASER SURGERY, ELECTROSURGERY, CRYOSURGERY, CHEMOSURGERY, SURGICAL CURETTEMENT), PREMALIGNANT LESIONS (EG, ACTINIC KERATOSES); 2ND THRU 14 LESIONS, EA (LIST SEP ADDITION CD, 1ST LESION) 03/23/2006 [facility] VISUAL FIELD EXAMINATION, UNI OR BILATERAL, WITH MEDICAL DIAGNOSTIC EVAL; INTERMEDIATE EXAM (EG, AT LEAST 2 ISOPTERS ON GOLDMANN PERIMETER, OR SEMIQUANT, AUTO SUPRATHRESHOLD SCREEN PROGRAM, BAIRES 01/12/2005 [facility] PHYS/OTH QUALIFIED HEALTH BELT SANDER QUALIFIED,EDUCATION,T RAIN,LICENSURE/REGULA TION (WHEN APPLICABLE) EDUC SER RENDERED TO PATS IN A GRP SETTING (EG,,OBESITY, OR DIABETIC INSTRUCT) 01/08/2005 [facility] ELECTROCARDIOGRAM, ROUTINE ECG WITH AT LEAST 12 LEADS; WITH INTERPRETATION AND REPORT 06/05/2004 [facility] URINALYSIS, BY DIP STICK OR TABLET REAGENT FOR BILIRUBIN, GLUCOSE, HEMOGLOBIN, KETONES, LEUKOCYTES, NITRITE, PH, PROTEIN, SPEC GRAVITY, UROBILINOGEN, ANY NUMBER OF CONSTITUENTS; WITH MICROSCOPY 08/30/2003 DoD PRESSURIZED/NONPRESS INHAL TREAT FOR AC AIRWAY OBSTRUCT,THERAP PURPOSE &/FOR DIAG PURP SUCH SPUTUM INDUCTION W AN AEROSOL GEN,NEBULIZER,METER DOSE INHALER/INTERMIT POSIT PRESS BREATHING (IPPB) DEV 11/13/2002 DoD HANDLING AND/OR CONVEYANCE OF SPECIMEN FOR TRANSFER FROM THE OFFICE TO A LABORATORY 11/04/2002 DoD PHYS/OTH QUALIFIED HEALTH BELT SANDER QUALIFIED,EDUCATION,T RAIN,LICENSURE/REGULA TION (WHEN APPLICABLE) EDUC SER RENDERED TO PATS IN A GRP SETTING (EG,,OBESITY, OR DIABETIC INSTRUCT) 08/31/2001 [facility] PHYS/OTH QUALIFIED HEALTH BELT SANDER QUALIFIED,EDUCATION,T RAIN,LICENSURE/REGULA TION (WHEN APPLICABLE) EDUC SER RENDERED TO PATS IN A GRP SETTING (EG,,OBESITY, OR DIABETIC INSTRUCT) 08/12/2001 DoD Destruction Of Benign Lesion By Cryosurgery 03/23/2006 LAISHA LEVINE Destruction Of Benign Lesion By Any Method One Lesion 03/23/2006 VANESSA LEVINE Destruct Of Benign Lesion By Any Method Second Through 14 03/23/[address].-Supervised Group Educational Services 01/08/2005 RICHARD ZAMORANO IS A DoD Psychiatric Evaluation Review of Records and Reports Psychiatric Evaluation Review of Records and Reports [id number] 01/08/2005 BUDDY ZAMORANO A DoD Social History Combined list of available smoking, tobacco, and other social history from Department of Defense and Veterans Affairs facilities. Social History Type Response Date Comment Sourc e This section is an empty social history section. DoD
--- OUTSIDE RECORDS SUMMARY | 2025-04-06 09:33 | XMS_ITS | Clinical Summary ---
Author Organization [address] Address [address] [address] Care Team Providers Care Embalmer Apprentice Name Role Phone Nicolás Barnes MD Unavailable [phone] David Lee MD Unavailable [phone] Annita Miranda Primary Care Provider [phone] Allergies No known active allergies Medications cholecalciferol, vitamin D3, (VITAMIN D3 ORAL) Take 10,000 Units by mouth every morning Active multivit-min/ferr ous fumarate (MULTI VITAMIN ORAL) Take 1 tablet by mouth every morning Active pantoprazole DR (PROTONIX) 40 mg EC tabletIndications :Gastro-esophagea l reflux disease without esophagitis TAKE 1 TABLET DAILY 90 tablet 3 4 Active meloxicam (MOBIC) 15 mg tabletIndications :Bilateral foot pain TAKE 1 TABLET DAILY 90 tablet 3 4 Active Additional Information Patient not taking.Reported on 01/29/2025 fluticasone propionate (FLONASE) 50 mcg/actuation nasal spray Administer 2 sprays into each nostril daily 1 each 3 5 Active Additional Information Patient not taking.Reported on 01/29/2025 cyclobenzaprine (FLEXERIL) 10 mg tabletIndications :Cervical radiculopathy at C5 Take 1 tablet (10 mg total) by mouth 3 (three) times a day as needed for muscle spasms 30 tablet 5 025 Active lisinopriL (PRINIVIL,ZESTRIL ) 20 mg tabletIndications :Uncontrolled hypertension Take 1 tablet (20 mg total) by mouth daily 30 tablet 1 5 026 Active Active Problems Problem Noted Date Diagnosed Date History of peptic ulcer disease 01/29/2025 Assessment & Plan (01/29/2025 12:48 PM CDT): 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 Cancer Staging:Pathologic stage from 02/05/2022:Stage I(pT1, pN1, [...] Gastro-esophageal reflux disease without esophag itis 12/13/2017 Assessment & Plan (01/29/2025 12:48 PM CDT): Class 3 severe obesity with serious comorbidity and body mass index (BMI) of 40.0 to 44.9 in adult 12/10/2017 Assessment & Plan (01/29/2025 12:48 PM CDT): BMI 36.0-36.9,adult 12/10/2017 BMI 38.0-38.9,adult 12/10/2017 Encounters Date Type Department Care Team Description 04/05/2025 2:30 PM CDT Office Visit [facility] Family Medicine [address] [place] [phone] Annita Miranda PA Cervical radiculopathy at C5 (Primary Dx); Neck pain; Acute pain of right shoulder; Uncontrolled hypertension; Hyperglycemia; Screening, ischemic heart disease; Screening for diabetes mellitus; Screening for blood disease; Screening PSA (prostate specific antigen) 01/29/2025 12:30 PM CDT Office Visit [facility] Family Medicine [address] [place] [phone] Annita Miranda PA Sprain of calcaneofibular ligament of right ankle, subsequent encounter (Primary Dx); Elevated blood pressure reading; Gastro-esophageal reflux disease without esophagitis; History of peptic ulcer disease; Class 3 severe obesity with serious comorbidity and body mass index (BMI) of 40.0 to 44.9 in adult, unspecified obesity type from Last 3 Months Immunizations Immunization Administration Dates Next Due Anthrax 04/10/2005, 4,08/17/2003,02/14,09/11/2002,08/28/2002,08/14/2002 [...] GERD (gastroesophageal reflux disease) Seasonal allergies Cancer (HCC) Motion sickness Dental disease Tinnitus HPV [...] declined 01/07/2022 How often do you attend taoist or advent serv ices? Patient declined 01/07/2022 Do you belong to any clubs o r organizations such as taoist groups, unions, fraternal or athletic groups, or [...] place to sleep or slept in a long-term (including now)? No 01/07/2022 Sex and Gender Information Value Date Recorded Sex Assigned at Not on file Legal Sex Male 2:20 AM TAPE COATER Gender Identity Not on file Sexual Orientation [...] Mass Index 40.64 04/05/2025 2:39 PM CDT Plan of Treatment Health Maintenance Due Date Last Done Comments Hepatitis C Screening 1965 Pneumococcal vaccine <65 (1 of 2 - PCV) 1985 Covid-19 Vaccine (5 - 2023-2 5 season) 2024 08/07/2022, 07/11/2021, 10/04/2020, Additional history exists Regular Well Visit/Exam 18-64 08/06/2024 08/06/2023, 08/06/2023 Zoster Vaccine (2 of 2) 08/15/2024 06/20/2024 Influenza Vaccine (#1) 2025 3, 07/02/2023, 06/27/2021, Additional history exists Prostate Cancer Screening-PSA 08/09/2025 08/09/2023 Depression Screening 04/05/2026 04/05/2025, 01/29/2025, 09/28/2024, Additional history exists Colon Cancer Screening-DNA Stool 09/04/2026 09/04/20 DTaP/Tdap/Td Vaccine (2 - Td or Tdap) 08/06/2033 08/06/2023, 12/06/1997 Hepatitis B Screening Completed 02/06/1987 Procedures Procedure Name Priority Date/Time Associated Diagnosis Comments STOOL DNA COLOGUARD Routine 09/04/2023 10:30 AM TAPE COATER Screening for colon cancer PSA, TOTAL Routine 08/09/2023 from Last 3 Months or Most Recently Relevant to Health Maintenance Results * Stool DNA - Cologuard (09/04/2023 10:30 AM TAPE COATER) Stool DNA - Cologuard Negative Negative [employer] (CLIA #:[id number]) Comment: NEGATIVE TEST RESULT. A negative Cologuard [...] (Aquilino Loredo al, N Engl J Med 2014;370(14):4930-7990) The normal value (reference range) for this assay is negative. COLOGUARD RE-SCREENING RECOMMENDATION: Periodic colorectal cancer screening is an important part of preventive healthcare for asymptomatic individuals at average risk for colorectal cancer. Following a negative Cologuard result, the [place] [employer] Society and U.S. Multi-Society Task Force screening guidelines recommend a Cologuard re-screening interval of 3 years. References: [place] [employer] Guideline for Colorectal Cancer Screening: https://www.cancer.org/cancer/crhry-dvdwny-cabhcw/pqtjoieiy-pbcwvkggx-ikqrlhh/ac s-rec ommendations.html.; Elvin DK, Orin DENISE, Uziel NievesK, Colorectal Cancer Screening: Recommendations for Physicians and Patients from the U.S. Multi-Society Task Force on Colorectal Cancer Screening , Am J Gastroenterology 2017; 112:7326-9864. TEST DESCRIPTION: Composite algorithmic analysis of stool [...] colonoscopy. (Aquilino Engle, N Engl J Med 2014;370(14):0109-5892.) Cologuard may produce a false negative or false positive result (no colorectal cancer or precancerous polyp present at colonoscopy follow up). A negative Cologuard test result does not guarantee the absence of CRC or advanced adenoma (pre-cancer). The current Cologuard screening interval is every 3 years. ([place] [employer] Society and U.S. Multi-Society Task Force). Cologuard performance data in a 10,000 patient pivotal study using colonoscopy as the reference method can be accessed at the following location: www.[employer]/results. Additional description of the Cologuard test process, warnings and precautions can be found at www.cologuard.com. Stool 09/04/2023 10:3 0 AM TAPE COATER 09/05/2023 11:51 PM TAPE COATER Jonathan Solis MD LAB BODY FLUIDS AND STOOLS ORDERABLES Final Result Performing Organization Address City/State/[facility] Co de Phone Number [employer] (CLIA #:[id number]) [place] [address] * PSA, total Blood (08/09/2023) SCRIBED PSA, Total 0.3 <4.0 - <4.0 Blood 08/09/2023 [facility] Provider LAB BLOOD ORDERABLES Aisha l Result from Last 3 Months or Most Recently Relevant to Health Maintenance Insurance [employer] CLAIMS [facility] Advance Directives For more information, please contact: [phone] * Full Code (Latest Code Status on File) Date Activated Date Inactivated Comments 01/16/2022 9:28 AM 01/18/2022 6:42 PM * Full Code Date Activated Date Inactivated Comments 01/09/2022 2:04 PM 01/11/2022 5:07 PM Care Teams Embalmer Apprentice Relationship Specialty Start Date End Date Annita Miranda PA [address] [place] [address] PCP - General Family Medicine 01/29/25 OppeNicolás blanco MD [address] [facility] [address] [place] [address] Medical Oncologist/Allergist Immunologist Medical Oncology 12/17/21 David Lee MD [address] [facility] [address] [place] [address] Consulting Physician Otolaryngology 12/26/21
--- OUTSIDE RECORDS SUMMARY | 2025-04-06 09:33 | XMS_ITS | Referral Summary ---
Author Organization [address] Address [address] [place] [address] Care Team Providers Care Supervisor [employer]lass Boat Assembly Name Role Phone Nicolás Barnes MD Unavailable [phone] David Lee MD Unavailable [phone] Annita Miranda Primary Care Provider [phone] Encounters Date Type Department Care Team Description 04/05/2025 2:30 PM CDT Office Visit [address] [address] Annita Miranda PA Cervical radiculopathy at C5 (Primary Dx); Neck pain; Acute pain of right shoulder; Uncontrolled hypertension; Hyperglycemia; Screening, ischemic heart disease; Screening for diabetes mellitus; Screening for blood disease; Screening PSA (prostate specific antigen) 01/29/2025 12:30 PM CDT Office Visit [address] [address] Annita Miranda PA Sprain of calcaneofibular ligament of right ankle, subsequent encounter (Primary Dx); Elevated blood pressure reading; Gastro-esophageal reflux disease without esophagitis; History of peptic ulcer disease; Class 3 severe obesity with serious comorbidity and body mass index (BMI) of 40.0 to 44.9 in adult, unspecified obesity type from Last 3 Months Allergies No known [...] mass 12/29/2021 Overview (01/16/2022): NAME OF PROCEDURE (Puranisa 01/09/2022): 1. Right neck dissection, levels II-IV [...] CDT): BMI 36.0-36.9,adult 12/10/2017 BMI 38.0-38.9,adult 12/10/2017 Immunizations Immunization Administration Dates Next Due Anthrax [...] declined 01/07/2022 How often do you attend tenriism or sabianist serv ices? Patient declined 01/07/2022 Do you belong to any clubs o r organizations such as tenriism groups, unions, fraternal or athletic groups, or [...] place to sleep or slept in a usp (including now)? No 01/07/2022 Sex and Gender Information Value Date Recorded Sex Assigned at Not on file Legal Sex Male 2:20 AM POST ADOPTION COORDINATOR Gender Identity Not on file Sexual Orientation [...] 04/05/2025 2:39 PM CDT Plan of Treatment Not on file Procedures Procedure Name Priority Date/Time Associated Diagnosis Comments STOOL DNA COLOGUARD Routine 09/04/2023 10:30 AM POST ADOPTION COORDINATOR Screening for colon cancer PSA, TOTAL Routine 08/09/2023 from Last 3 Months or Most Recently Relevant to Health Maintenance Results * Stool DNA - Cologuard (09/04/2023 10:30 AM POST ADOPTION COORDINATOR) Stool DNA - Cologuard Negative Negative [employer] (CLIA #:[id number]) Comment: NEGATIVE TEST RESULT. A negative Cologuard [...] screened with both Cologuard and colonoscopy. (Aquilino Arguello. et al, N Engl J Med 2014;370(14):8593-1115) The normal value (reference range) for this assay is negative. COLOGUARD RE-SCREENING RECOMMENDATION: Periodic colorectal cancer screening is an important part of preventive healthcare for asymptomatic individuals at average risk for colorectal cancer. Following a negative Cologuard result, the [place] Cancer Society and U.S. Multi-Society Task Force screening guidelines recommend a Cologuard re-screening interval of 3 years. References: [place] [employer] Society Guideline for Colorectal Cancer Screening: https://www.cancer.org/cancer/addno-cuuvpm-keqixk/aahqbbwkd-onsekuqbj-wdulqlz/ac s-rec ommendations.html.; Elvin RAZO, Orin DENISE, Uziel NievesK, Colorectal Cancer Screening: Recommendations for Physicians and Patients from the U.S. Multi-Society Task Force on Colorectal Cancer Screening , Am J Gastroenterology 2017; 112:8071-7142. TEST DESCRIPTION: Composite algorithmic analysis of stool [...] Amaya et al, N Engl J Med 2014;370(14):9804-8819.) Cologuard may produce a false negative or false positive result (no colorectal cancer or precancerous polyp present at colonoscopy follow up). A negative Cologuard test result does not guarantee the absence of CRC or advanced adenoma (pre-cancer). The current Cologuard screening interval is every 3 years. ([place] Cancer Society and U.S. Multi-Society Task Force). Cologuard performance data in a 10,000 patient pivotal study using colonoscopy as the reference method can be accessed at the following location: www.[employer]/results. Additional description of the Cologuard test process, warnings and precautions can be found at www.cologPaintZenrd.com. Stool 09/04/2023 10:3 0 AM POST ADOPTION COORDINATOR 09/05/2023 11:51 PM POST ADOPTION COORDINATOR Jonathan Solis MD LAB BODY FLUIDS AND STOOLS ORDERABLES Final Result [employer] (CLIA #:[id number]) [place] [address] * PSA, total Blood (08/09/2023) SCRIBED PSA, Total 0.3 <4.0 - <4.0 Blood 08/09/2023 [facility] Provider LAB BLOOD ORDERABLES Aisha l Result from Last 3 Months or Most Recently Relevant to Health Maintenance Insurance [facility] Advance Directives For more information, please contact: [phone] * Full Code (Latest Code Status on File) Date Activated Date Inactivated Comments 01/16/2022 9:28 AM 01/18/2022 6:42 PM * Full Code Date Activated Date Inactivated Comments 01/09/2022 2:04 PM 01/11/2022 5:07 PM Care Teams Supervisor [employer] Relationship Specialty Start Date End Date Annita Miranda PA [address] [place] [address] PCP - General Family Medicine 01/29/25 Nicolás Barnes MD [id number] [place] [address] Medical Oncologist/Archivist [employer] History Medical Oncology 12/17/21 David Lee MD [address] [facility] [address] [place] [address] Consulting Physician Otolaryngology 12/26/21
--- OUTSIDE RECORDS SUMMARY | 2025-04-06 09:33 | XMS_ITS ---
Author Organization [address] Address [address] [address] Care Team Providers Care Geochemical Laboratory Technician Name Role Phone Nicolás Barnes MD Unavailable [phone] David Lee MD Unavailable [phone] Annita Miranda Primary Care Provider [phone] Active Problems Problem Noted Date Diagnosed Date [...] CDT): BMI 36.0-36.9,adult 12/10/2017 BMI 38.0-38.9,adult 12/10/2017 Current Treatment and Therapy Plans No current plan information found. Past Treatment and Therapy Plans No past plan information found. Lifetime Dose Tracking * Chemical Lifetime Dose Automatic Entry Manual Entr y DLP 9,626 mGycm 9,626 mGycm 0 mGycm
--- OUTSIDE RECORDS SUMMARY | 2025-04-06 09:33 | XMS_ITS | Clinical Summary ---
Author Organization [facility] Address [facility] [place] [address] Care Team Providers Care Home Fire Alarm Installer Name Role Phone Unavailable Primary Care Provider [...] of 3 - 19+ 3-dose series) 1985 Pneumococcal Vaccine: 50+ Ye ars (1 of 1 - PCV) 2016 Zoster Vaccines (1 of 2) 2016 COVID-19 Vaccine (2023-2 5 season) 2024 Meningococcal B Vaccine Aged Out No l onger eligible based on patient's age to complete this topic Meningococcal Vaccine Aged Out No norberto romel eligible based on patient's age to complete this topic RSV Immunizations Under 20 Months Aged Out No longer eligible based on patient's age to complete this topic
== END 2025-04-06 09:27 | disposition home or self-care (01) ==
PROVIDERS: PCP Physician Assistant; Visit Provider Physician Assistant
DX: M54.12 Radiculopathy, cervical region (principal); M25.511 Pain in right shoulder
CPT/HCPCS: 72040; 73030

== ENCOUNTER 2025-04-09 07:01 | Outpatient (CLI) | payer OTHER, SELFPAY ==
--- OUTSIDE RECORDS SUMMARY | 2025-04-09 07:04 | XMS_ITS | Clinical Summary ---
Author Organization [address] Address [address] [address] Care Team Providers Care Cafe Aide Name Role Phone Nicolás Barnes MD Unavailable [phone] David Lee MD Unavailable [phone] Annita Miranda Primary Care Provider [phone] Allergies No known active allergies Medications cholecalciferol, [...] Description 04/05/2025 2:30 PM CDT Office Visit [facility] [address] [place] [phone] Annita Miranda PA Cervical radiculopathy at C5 (Primary Dx); Neck pain; Acute pain of right shoulder; Uncontrolled hypertension; Hyperglycemia; Screening, ischemic heart disease; Screening for diabetes mellitus; Screening for blood disease; Screening PSA (prostate specific antigen) 01/29/2025 12:30 PM CDT Office Visit [facility] [address] [place] [phone] Annita Miranda PA Sprain of calcaneofibular [...] declined 01/07/2022 How often do you attend worship or mosque serv ices? Patient declined 01/07/2022 Do you belong to any clubs o r organizations such as worship groups, unions, fraternal or athletic groups, or [...] place to sleep or slept in a alf (including now)? No 01/07/2022 Sex and Gender Information Value Date Recorded Sex Assigned at Not on file Legal Sex Male 2:20 AM CAUL PULLER Gender Identity Not on file Sexual Orientation [...] STOOL DNA COLOGUARD Routine 09/04/2023 10:30 AM CAUL PULLER Screening for colon cancer PSA, TOTAL Routine 08/09/2023 from Last 3 Months or Most Recently Relevant to Health Maintenance Results * Stool DNA - Cologuard (09/04/2023 10:30 AM CAUL PULLER) Stool DNA - Cologuard Negative Negative [employer] (CLIA #:[id number]) Comment: NEGATIVE TEST RESULT. A negative Cologuard [...] (Aquilino Loredo al, N Engl J Med 2014;370(14):9033-8981) The normal value (reference range) for this assay is negative. COLOGUARD RE-SCREENING RECOMMENDATION: Periodic colorectal cancer screening is an important part of preventive healthcare for asymptomatic individuals at average risk for colorectal cancer. Following a negative Cologuard result, the [place] Cancer Society and U.S. Multi-Society Task Force screening guidelines recommend a Cologuard re-screening interval of 3 years. References: [place] [employer] Society Guideline for Colorectal Cancer Screening: https://www.cancer.org/cancer/verfg-nqnjtn-jltzkm/rriepxqax-hyekpiduh-rdanlqg/ac s-rec ommendations.html.; Elvin DK, Orin EDNISE, Uziel NievesK, Colorectal Cancer Screening: Recommendations for Physicians and Patients from the U.S. Multi-Society Task Force on Colorectal Cancer Screening , Am J Gastroenterology 2017; 112:8263-5209. TEST DESCRIPTION: Composite algorithmic analysis of stool [...] colonoscopy. (Aquilino Engle, N Engl J Med 2014;370(14):8270-2390.) Cologuard may produce a false negative or false positive result (no colorectal cancer or precancerous polyp present at colonoscopy follow up). A negative Cologuard test result does not guarantee the absence of CRC or advanced adenoma (pre-cancer). The current Cologuard screening interval is every 3 years. ([place] Cancer Society and U.S. Multi-Society Task Force). Cologuard performance data in a 10,000 patient pivotal study using colonoscopy as the reference method can be accessed at the following location: www.[employer]/results. Additional description of the Cologuard test process, warnings and precautions can be found at www.cologuard.com. Stool 09/04/2023 10:3 0 AM CAUL PULLER 09/05/2023 11:51 PM CAUL PULLER Jonathan Solis MD LAB BODY FLUIDS AND STOOLS ORDERABLES Final Result Performing Organization Address City/State/[facility] Co de Phone Number [employer] (CLIA #:[id number]) [place] [address] * PSA, total Blood (08/09/2023) SCRIBED PSA, Total 0.3 <4.0 - <4.0 Blood 08/09/2023 [facility] Provider LAB BLOOD ORDERABLES Aisha l Result from Last 3 Months or Most Recently Relevant to Health Maintenance Insurance [facility]S [facility] Advance Directives For more information, please contact: [phone] * Full Code (Latest Code Status on File) Date Activated Date Inactivated Comments 01/16/2022 9:28 AM 01/18/2022 6:42 PM * Full Code Date Activated Date Inactivated Comments 01/09/2022 2:04 PM 01/11/2022 5:07 PM Care Teams Cafe Aide Relationship Specialty Start Date End Date Annita Miranda PA [address] [place] [address] PCP - General Family Medicine 01/29/25 OppeNicolás blanco MD [address] [facility] [address] [place] [address] Medical Oncologist/Reliability Technicians Medical Oncology 12/17/21 David Lee MD [address] [facility] [address] [place] [address] Consulting Physician Otolaryngology 12/26/21
--- OUTSIDE RECORDS SUMMARY | 2025-04-09 07:04 | XMS_ITS | Clinical Summary ---
Author Organization [facility] Address [facility] [place] [address] Care Team Providers Care Bone Worker Name Role Phone Unavailable Primary Care Provider [...]
--- OUTSIDE RECORDS SUMMARY | 2025-04-09 07:04 | XMS_ITS | Referral Summary ---
Author Organization [address] Address [address] [place] [address] Care Team Providers Care Flat Surfacer Name Role Phone Nicolás Barnes MD Unavailable [phone] David Lee MD Unavailable [phone] Annita Miranda Primary Care Provider [phone] Encounters Date Type Department Care Team Description 04/05/2025 2:30 PM CDT Office Visit [address] [phone] Annita Miranda PA Cervical radiculopathy at C5 (Primary Dx); Neck pain; Acute pain of right shoulder; Uncontrolled hypertension; Hyperglycemia; Screening, ischemic heart disease; Screening for diabetes mellitus; Screening for blood disease; Screening PSA (prostate specific antigen) 01/29/2025 12:30 PM CDT Office Visit [address] [phone] Annita Miranda PA Sprain of [...] declined 01/07/2022 How often do you attend adventist or mandaeism serv ices? Patient declined 01/07/2022 Do you belong to any clubs o r organizations such as adventist groups, unions, fraternal or athletic groups, or [...] place to sleep or slept in a jail (including now)? No 01/07/2022 Sex and Gender Information Value Date Recorded Sex Assigned at Not on file Legal Sex Male 2:20 AM SYNTHETIC STAPLE EXTRUDER Gender Identity Not on file Sexual Orientation [...] STOOL DNA COLOGUARD Routine 09/04/2023 10:30 AM SYNTHETIC STAPLE EXTRUDER Screening for colon cancer PSA, TOTAL Routine 08/09/2023 from Last 3 Months or Most Recently Relevant to Health Maintenance Results * Stool DNA - Cologuard (09/04/2023 10:30 AM SYNTHETIC STAPLE EXTRUDER) Stool DNA - Cologuard Negative Negative [employer] (CLIA #:[id number]) Comment: NEGATIVE TEST RESULT. A negative Cologuard [...] Arguello. et al, N Engl J Med 2014;370(14):3488-9680) The normal value (reference range) for this assay is negative. COLOGUARD RE-SCREENING RECOMMENDATION: Periodic colorectal cancer screening is an important part of preventive healthcare for asymptomatic individuals at average risk for colorectal cancer. Following a negative Cologuard result, the [place] Cancer Society and U.S. Multi-Society Task Force screening guidelines recommend a Cologuard re-screening interval of 3 years. References: [place] [employer] Guideline for Colorectal Cancer Screening: https://www.cancer.org/cancer/gtiit-mvspvm-beklds/pnkjawfsy-acppvdsio-bnghmib/ac s-rec ommendations.html.; Elvin RAZO, Orin DENISE, Uziel NievesK, Colorectal Cancer Screening: Recommendations for Physicians and Patients from the U.S. Multi-Society Task Force on Colorectal Cancer Screening , Am J Gastroenterology 2017; 112:5949-5288. TEST DESCRIPTION: Composite algorithmic analysis of stool [...] Amaya et al, N Engl J Med 2014;370(14):0987-7634.) Cologuard may produce a false negative or false positive result (no colorectal cancer or precancerous polyp present at colonoscopy follow up). A negative Cologuard test result does not guarantee the absence of CRC or advanced adenoma (pre-cancer). The current Cologuard screening interval is every 3 years. ([place] Cancer Society and U.S. Multi-Society Task Force). Cologuard performance data in a 10,000 patient pivotal study using colonoscopy as the reference method can be accessed at the following location: www.[employer]/results. Additional description of the Cologuard test process, warnings and precautions can be found at www.cologIdentityForgerd.com. Stool 09/04/2023 10:3 0 AM SYNTHETIC STAPLE EXTRUDER 09/05/2023 11:51 PM SYNTHETIC STAPLE EXTRUDER Jonathan Solis MD LAB BODY FLUIDS AND STOOLS ORDERABLES Final Result [employer] (CLIA #:[id number]) [place] [address] * PSA, total Blood (08/09/2023) SCRIBED PSA, Total 0.3 <4.0 - <4.0 Blood 08/09/2023 [facility] Provider LAB BLOOD ORDERABLES Aisha l Result from Last 3 Months or Most Recently Relevant to Health Maintenance Insurance [facility] Advance Directives For more information, please contact: [phone] * Full Code (Latest Code Status on File) Date Activated Date Inactivated Comments 01/16/2022 9:28 AM 01/18/2022 6:42 PM * Full Code Date Activated Date Inactivated Comments 01/09/2022 2:04 PM 01/11/2022 5:07 PM Care Teams Flat Surfacer Relationship Specialty Start Date End Date Annita Miranda PA [address] [place] [address] PCP - General Family Medicine 01/29/25 Nicolás Barnes MD [id number] [place] [address] Medical Oncologist/Critical Care Technician Medical Oncology 12/17/21 David Lee MD [address] [facility] [address] [place] [address] Consulting Physician Otolaryngology 12/26/21
--- OUTSIDE RECORDS SUMMARY | 2025-04-09 07:04 | XMS_ITS | Continuity of Care Document ---
Author Name [facility] Organization [facility] Care Team Providers Care [place]ge Hand Name Role Phone [facility] Unavailable Unavailable Problems Combined list of problems from Department of Defense and Veterans Affairs facilities. It does not include entries that were removed or entered in error. Problem Status Onset Date Problem Type Date of Resolution Comments Source Hearing Loss, Sensorineural, Unspecified Active Condition [facility] visit for: issue repeat prescription Inactive Condition [facility] heartburn Active Condition DoD visit for: services physical Inactive Condition custodial physical performed. DoD Blood Pressure Isolated Elevated Inactive Condition pt to begi n 5-day BP check and follow up afterwards DoD [place] Active Condition follow u p as needed DoD UPPER RESPIRATORY INFECTION Inactive Condition increase fluids DoD ESOPHAGEAL REFLUX Active Condition DoD BRONCHITIS Active Condition [facility] visit for: occupational health / [...] TABLET, ORAL, SANDOZ, 20 ea. BOTTLE Active [id number] 2023 20 Pharmac y Data Transac tion Service Facilit y PREDNISONE (prednisone ), 20 MG, TABLET, ORAL, NOVITIUM/AN I PH, 500 ea. BOTTLE Active [id number] 2023 6 Pharmac y Data Transac tion Service Facilit y Allergies, Adverse Reactions, Alerts Combined list of allergies from Department of Defense and Veterans Affairs facilities. It does not include entries that were removed or entered in error. Substance Category Reaction Severity Reaction type Status Date Reported Comments Source No Known Allergies Drug allergy (disorder) active 09/23/2006 [facility] Immunizations Combined list of available immunizations from the Department of Defense and Veterans Affairs facilities. 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 purified surface antigen)-reti red CODE 1 2004 Unknown, Provider 15 Transcribed (TRS) complet ed influenza virus vaccine, split virus (incl. purified surface antigen)- retired CODE DoD anthrax vaccine 7 2004 Unknown, Provider [id number] 24 [facility] ([facility]) complet ed anthrax vaccine DoD typhoid vaccine, parenteral, other than acetone-kille d, dried 1 2004 Unknown, Provider [id number] 41 [employer]i P[employer] ([facility]) complet ed typhoid vaccine, parentera l, other than acetone-k illed, dried DoD influenza virus vaccine, split virus (incl. purified surface antigen)-reti red CODE 1 2004 Unknown, Provider [id number] 15 [employer] Pasteur ([facility]) complet ed influenza virus vaccine, split virus (incl. purified surface antigen)- retired CODE DoD anthrax vaccine 6 2003 Unknown, Provider [id number] 24 [facility] ([facility]) complet ed anthrax vaccine DoD tuberculin skin test; purified protein derivative solution, intradermal 1 2003 Unknown, Provider [id number] 96 [place] ([place]) complet ed tuberculi n skin test; purified protein derivativ e solution, intraderm al DoD anthrax vaccine 5 2002 Unknown, Provider [id number] 24 [facility] ([facility]) complet ed anthrax vaccine DoD influenza virus vaccine, whole virus 1 2002 Unknown, Provider [id number] 16 [employer] ([facility]) complet ed influenza virus vaccine, whole virus DoD tuberculin skin test; purified protein derivative solution, intradermal 1 2002 Unknown, Provider [id number] 96 [place] (PD) complet ed tuberculi n skin test; purified protein derivativ e solution, intraderm al DoD anthrax vaccine 4 2002 Unknown, Provider [id number] 24 [facility] ([facility]) complet ed anthrax vaccine DoD vaccinia (smallpox) vaccine 1 2002 Unknown, Provider [id number] 75 Sid (KETURAH) complet ed vaccinia (smallpox ) vaccine DoD typhoid Vi capsular polysaccharid e vaccine 1 2002 Unknown, Provider [id number] [employer]i Pasteur ([facility]) complet ed typhoid Vi capsular polysacch aride vaccine DoD anthrax vaccine 3 2001 Unknown, Provider [id number] 24 [facility]) complet ed anthrax vaccine DoD anthrax vaccine 2 2001 Unknown, Provider [id number] 24 [facility]) complet ed anthrax vaccine DoD meningococcal polysaccharid e vaccine (MPSV4) 1 2001 Unknown, Provider [id number] complet ed meningoco ccal polysacch aride vaccine (MPSV4) DoD influenza virus vaccine, whole virus 1 2001 Unknown, Provider [id number] 16 [employer]i Pasteur ([facility]) complet ed influenza virus vaccine, whole virus DoD anthrax vaccine 1 2001 Unknown, Provider [id number] 24 [facility] ([facility]) complet ed anthrax vaccine DoD tuberculin skin test; purified protein derivative solution, intradermal 1 2001 Unknown, Provider 96 () complet ed tuberculi n skin test; purified protein derivativ e solution, intraderm al DoD influenza virus vaccine, whole virus 1 2000 Unknown, Provider [id number] 16 Sanofi Pasteur ([facility]) complet ed influenza virus vaccine, whole virus DoD tuberculin skin test; purified protein derivative solution, intradermal 1 2000 Unknown, Provider [id number] 96 [employer] (CON) complet ed tuberculi n [...] yellow fever vaccine 1 1999 Unknown, Provider [id number] 37 Jenae (CON) complet ed yellow fever vaccine DoD influenza virus vaccine, whole virus 3 1998 Unknown, Provider [id number] 16 [employer] (CON) complet ed influenza virus vaccine, whole virus DoD tuberculin skin test; purified protein derivative solution, intradermal 1 1998 Unknown, Provider [id number] 96 Sanofi Pasteur ([facility]) complet ed tuberculi n skin test; purified [...] vaccine, live, oral 1 1997 Unknown, Provider [id number] 25 [place] ([place]active) ([place]) complet ed typhoid vaccine, live, oral DoD tuberculin skin test; purified protein derivative solution, intradermal 1 1997 Unknown, Provider [id number] [facility] () complet ed tuberculi n skin test; purified protein derivativ e solution, intraderm al DoD influenza virus vaccine, whole virus 1 1996 Unknown, Provider [id number] 16 [place] ([place]) complet ed influenza virus vaccine, whole virus DoD hepatitis A vaccine, adult dosage 2 1996 Unknown, Provider 52 () complet ed hepatitis A vaccine, adult dosage DoD hepatitis A vaccine, adult dosage 2 1995 Unknown, Provider [id number] 52 [place] ([place]) complet ed hepatitis A vaccine, adult dosage DoD hepatitis A vaccine, adult dosage 1 1995 Unknown, Provider [id number] 52 [place] ([place]) complet ed hepatitis A vaccine, adult dosage [...] vaccine, adult dosage 3 1986 Unknown, Provider [id number] 43 [place] ([place]active) ([place]) complet ed hepatitis B vaccine, adult dosage [...] ADM Date DC Date Status Disposition Source [address] [place] [address] Jonathan [facility]Z [facility]am [facility] Non-GME FHI1) OUTPATIENT [id number] JULIA aTlbot 01/05 Released w/o Limitations [address] [place] [address] Jonathan [facility]F amily Practic e Non-GME FHI1) [address] [place] [address] Jonathan [facility]) OUTPATIENT [id number] 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 x4days VANESSA LEVINE 07/10 Released w/o Limitations [address] [place] [address] Jonathan [facility]F amily Practic e Non-GME FHI2) [address] [place] [address] Jonathan [facility]am [facility] Practice Non-GME FHI2) OUTPATIENT [id number] BELKIS Peñaloza 08/14 Released w/o Limitations [address] [place] [address] Jonathan [facility])(F amily Practic e Non-GME FHI2) [address] [place] [address] [employer] [facility] Non-GME FHI2) TELE CONSULT [id number] Rx Renewed Lansopr azole 30MG TAYA MISTRY 10/[address] [place] [address] Jonathan [facility])(F amily Practic e Non-GME FHI2) [address] [place] [address] [employer] [facility]am [facility] Practice Non-GME FHI1) OUTPATIENT [id number] COLD PLUS CONGEST ION JEREMY MCQUEEN 12/21 Released w/o Limitations [address] [place] [address] [employer] [facility])(F amily Practic e Non-GME FHI1) [address] [place] [address] Jonathan [facility] Non-GME FHI2) OUTPATIENT [id number] SKIN TAGS UNDER ARM EVALUAT ION VANESSA LEVINE 03/23 Released w/o Limitations [address] [place] [address] Jonathan [facility])(F amily Practic e Non-GME FHI2) [address] [place] [address] [facility])([facility] Non-GME FHI2) OUTPATIENT [id number] 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 07/27 Released w/o Limitations [address] [place] [address] Jonathan [facility])(F amily Practic e Non-GME FHI2) [address] [place] [address] Jonathan [facility])([facility] Non-GME FHI1) TELE CONSULT [id number] TAYA Hill 09/[address] [place] [address])(F amily Practic e Non-GME FHI1) Procedures Combined list of: 1) Procedures from Department of Veterans Affairs facilities going back up to thelast 18 months, not all VA non-surgical procedures are included; 2) All procedures from the Department of Defense facilities. Procedure Procedure Type Code Date Perfomer Comments [facility] samson Destruction Of Benign Lesion By Cryosurgery 03/23/2006 LAISHA LEVINE Destruction Of Benign Lesion By Any Method One Lesion 03/23/2006 VANESSA LEVINE Destruct Of Benign Lesion By Any Method Second Through 14 03/23/[address].-Supervised Group Educational Services 01/08/2005 RICHARD ZAMORANO IS A [facility] Psychiatric Evaluation Review of Records and Reports Psychiatric Evaluation Review of Records and Reports [id number] 01/08/2005 BUDDY ZAMORANO A [facility] ELECTROCARDIOGRAM, ROUTINE ECG WITH AT LEAST 12 LEADS; INTERPRETATION AND REPORT ONLY 02/26/2004 DoD DESTRUCT (EG, LASER SURGERY, ELECTROSURGERY, CRYOSURGERY, CHEMOSURGERY, SURGICAL CURETTEMENT), PREMALIGNANT LESIONS (EG, ACTINIC KERATOSES); 2ND THRU 14 LESIONS, EA (LIST SEP ADDITION CD, 1ST LESION) 03/23/2006 DoD VISUAL FIELD EXAMINATION, UNI OR BILATERAL, WITH MEDICAL DIAGNOSTIC EVAL; INTERMEDIATE EXAM (EG, AT LEAST 2 ISOPTERS ON GOLDMANN PERIMETER, OR SEMIQUANT, AUTO SUPRATHRESHOLD SCREEN PROGRAM, BAIRES 01/12/2005 DoD PHYS/OTH QUALIFIED HEALTH BRAKE REPAIR SUPERVISOR QUALIFIED,EDUCATION,T RAIN,LICENSURE/REGULA TION (WHEN APPLICABLE) EDUC SER RENDERED TO PATS IN A GRP SETTING (EG,,OBESITY, OR DIABETIC INSTRUCT) 01/08/2005 [facility] ELECTROCARDIOGRAM, ROUTINE ECG WITH AT LEAST 12 LEADS; WITH INTERPRETATION AND REPORT 06/05/2004 DoD URINALYSIS, BY DIP STICK OR TABLET REAGENT [...] A LABORATORY 11/04/2002 DoD PHYS/OTH QUALIFIED HEALTH BRAKE REPAIR SUPERVISOR QUALIFIED,EDUCATION,T RAIN,LICENSURE/REGULA TION (WHEN APPLICABLE) EDUC SER RENDERED TO PATS IN A GRP SETTING (EG,,OBESITY, OR DIABETIC INSTRUCT) 08/31/2001 DoD PHYS/OTH QUALIFIED HEALTH BRAKE REPAIR SUPERVISOR QUALIFIED,EDUCATION,T RAIN,LICENSURE/REGULA TION (WHEN APPLICABLE) EDUC SER RENDERED TO PATS IN A GRP SETTING (EG,,OBESITY, OR DIABETIC INSTRUCT) 08/12/2001 DoD Social History Combined list of available smoking, tobacco, and other social history from Department of Defense and Veterans Affairs facilities. Social History Type Response Date Comment Sourc e This section is an empty social history section. DoD
--- OUTSIDE RECORDS SUMMARY | 2025-04-09 07:04 | XMS_ITS ---
Author Organization [address] Address [address] [address] Care Team Providers Care Senior Trainer Name Role Phone Nicolás Barnes MD Unavailable [phone] David Lee MD Unavailable [phone] Annita Miranda Primary Care Provider [phone] Active Problems Problem Noted Date Diagnosed Date [...]
[2025-04-09 07:36] LABS: Hematocrit 46.3 % (42.0-52.0); Hemoglobin 14.8 g/dL (14.0-18.0); Mean Corpuscular HGB Conc 32.0 g/dl (32-36); Mean Corpuscular Hemoglobin 31.4 pg (26-34); Mean Corpuscular Volume 98.1 fl (80-100); Platelet Count Result 260 k/mm3 (150-375); Red Blood Count 4.72 M/mm3 (4.6-6.20); White Blood Count 5.7 K/mm3 (4.5-10.0)
[2025-04-09 07:56] LABS: Alanine Aminotransferase 34 U/L (6-50); Albumin Level 4.2 g/dL (3.5-5.1); Alkaline Phosphatase 87 U/L (38-126); Anion Gap 9 mmol/L (4-12); Aspartate Amino Transferase 36 U/L (17-59); Bilirubin,Total 0.6 mg/dL (0.2-1.3); Blood Urea Nitrogen 18 mg/dL (9-20); Calcium 9.1 mg/dL (8.4-10.2); Carbon Dioxide 26 mmol/L (22-30); Chloride 103 mmol/L (98-107); Cholesterol 212 mg/dL (0-200); Estimated Glomerular Filt Rate 59; Glucose 101 mg/dL (65-110); HDL Direct 36 mg/dL; Potassium 4.7 mmol/L (3.4-5.0); Sodium 138 mmol/L (137-145); Total Protein 7.4 g/dL (6.3-8.2); Triglycerides 151 mg/dL (<150)
[2025-04-09 08:32] LABS: Prostate Specific Antigen 0.3 ng/mL (< OR = 4.0)
[2025-04-09 08:41] LABS: Hemoglobin A1C 5.1 % (<5.7)
== END 2025-04-09 07:02 | disposition home or self-care (01) ==
LOC: ANHLAB 07:03
PROVIDERS: PCP Physician Assistant; Visit Provider Physician Assistant
DX: Z13.6 Encounter for screening for cardiovascular disorders (principal); Z13.1 Encounter for screening for diabetes mellitus; Z13.0 Encounter for screening for diseases of the blood and blood-forming organs and certain disorders involving the immune mechanism; Z12.5 Encounter for screening for malignant neoplasm of prostate; R73.9 Hyperglycemia, unspecified
CPT/HCPCS: 36415; 80053; 80061; 83036; 84153; 85027; G0103

== ENCOUNTER 2025-05-18 09:30 | Emergency (ER) | payer OTHER, SELFPAY ==
--- OUTSIDE RECORDS SUMMARY | 2025-05-18 09:32 | XMS_ITS | Continuity of Care Document ---
Author Name [facility] Organization [facility] Care Team Providers Care List Of First Job Ideas Name Role Phone [facility] Unavailable Unavailable Problems Combined list of problems from Department of Defense and Veterans Affairs facilities. It does not include entries that were removed or entered in error. Problem Status Onset Date Problem Type Date of Resolution Comments Source Hearing Loss, Sensorineural, Unspecified Active Condition [facility] visit for: issue repeat prescription Inactive Condition DoD heartburn Active Condition DoD visit for: services physical Inactive Condition [facility] physical performed. DoD Blood Pressure Isolated Elevated Inactive Condition pt to begi n 5-day BP check and follow up afterwards DoD [place] Active Condition follow u p as needed DoD UPPER RESPIRATORY INFECTION Inactive Condition increase fluids DoD ESOPHAGEAL REFLUX Active Condition DoD BRONCHITIS Active Condition DoD visit for: occupational health / fitness exam Inactive Condition DoD OTHER INTERPERSONAL PROBLEM Active Condition DoD Allergies, Adverse Reactions, Alerts Combined list of allergies from Department of Defense and Veterans Affairs facilities. It does not include entries that were removed or entered in error. Substance Category Reaction Severity Reaction type Status Date Reported Comments Source No Known Allergies Drug allergy (disorder) active 09/23/2006 [facility] Immunizations Combined list of available immunizations from the Department of Defense and Veterans Affairs facilities. 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 purified surface antigen)-reti red CODE 1 2004 Unknown, Provider 15 Transcribed (TRS) complet ed influenza virus vaccine, split virus (incl. purified surface antigen)- retired CODE DoD anthrax vaccine 7 2004 Unknown, Provider [id number] [facility] [employer] [place] ([facility]) complet ed anthrax vaccine DoD typhoid vaccine, parenteral, other than acetone-kille d, dried 1 2004 Unknown, Provider [id number] San[employer]i Pasteur ([facility]MC) complet ed typhoid vaccine, parentera l, other than acetone-k illed, dried DoD influenza virus vaccine, split virus (incl. purified surface antigen)-reti red CODE 1 2004 Unknown, Provider [id number] Sanof[employer] Pasteur ([facility]) complet ed influenza virus vaccine, split virus (incl. purified surface antigen)- retired CODE DoD anthrax vaccine 6 2003 Unknown, Provider [id number] [employer] [place] ([facility]) complet ed anthrax vaccine DoD tuberculin skin test; purified protein derivative solution, intradermal 1 2003 Unknown, Provider [id number] [place] (PD) complet ed tuberculi n skin test; purified protein derivativ e solution, intraderm al DoD anthrax vaccine 5 2002 Unknown, Provider [id number] [employer] [place] ([facility]) complet ed anthrax vaccine DoD influenza virus vaccine, whole virus 1 2002 Unknown, Provider [id number] 16 [employer] ([employer]) complet ed influenza virus vaccine, whole virus DoD tuberculin skin test; purified protein derivative solution, intradermal 1 2002 Unknown, Provider [id number] 96 [place] ([place]) complet ed tuberculi n skin test; purified protein derivativ e solution, intraderm al DoD anthrax vaccine 4 2002 Unknown, Provider [id number] [employer] [place] ([facility]) complet ed anthrax vaccine DoD vaccinia (smallpox) vaccine 1 2002 Unknown, Provider [id number] [place] ([facility]) complet ed vaccinia (smallpox ) vaccine DoD typhoid Vi capsular polysaccharid e vaccine 1 2002 Unknown, Provider [id number] San[employer] Pasteur ([facility]) complet ed typhoid Vi capsular polysacch aride vaccine DoD anthrax vaccine 3 2001 Unknown, Provider [id number] [employer] [place] ([facility]) complet ed anthrax vaccine DoD anthrax vaccine 2 2001 Unknown, Provider [id number] [employer] [place] ([facility]) complet ed anthrax vaccine DoD meningococcal polysaccharid e vaccine (MPSV4) 1 2001 Unknown, Provider [id number] 32 [place] (CON) complet ed meningoco ccal polysacch aride vaccine (MPSV4) DoD influenza virus vaccine, whole virus 1 2001 Unknown, Provider [id number] Sanofi Pasteur ([facility]) complet ed influenza virus vaccine, whole virus DoD anthrax vaccine 1 2001 Unknown, Provider [id number] [facility] ([facility]) complet ed anthrax vaccine DoD tuberculin skin test; purified protein derivative solution, intradermal 1 2001 Unknown, Provider 96 () complet ed tuberculi n skin test; purified protein derivativ e solution, intraderm al DoD influenza virus vaccine, whole virus 1 2000 Unknown, Provider [id number] 16 [facility] ([facility]) complet ed influenza virus vaccine, whole virus DoD tuberculin skin test; purified protein derivative solution, intradermal 1 2000 Unknown, Provider [id number] [facility] complet ed tuberculi n skin test; purified protein derivativ e solution, intraderm al DoD influenza virus vaccine, whole virus 1 1999 Unknown, Provider 16 () complet ed influenza virus vaccine, whole virus DoD tuberculin skin test; purified protein derivative solution, intradermal 1 1999 Unknown, Provider [id number] 96 [facility] complet ed tuberculi n skin test; purified protein derivativ e solution, intraderm al DoD yellow fever vaccine 1 1999 Unknown, Provider [id number] [facility] yellow fever vaccine DoD influenza virus vaccine, whole virus 3 1998 Unknown, Provider [id number] [facility] influenza virus vaccine, whole virus DoD tuberculin skin test; purified protein derivative solution, intradermal 1 1998 Unknown, Provider [id number] 96 [facility] ([facility]) complet ed tuberculi n skin test; purified protein derivativ e solution, intraderm al DoD influenza virus vaccine, whole virus 2 1997 Unknown, Provider 16 () complet ed influenza virus vaccine, whole virus [facility] tetanus and diphtheria toxoids, adsorbed, preservative free, for adult use (2 Lf of tetanus toxoid and 2 Lf of diphtheria toxoid) 1 1997 Unknown, Provider 09 () complet ed tetanus and diphtheri a toxoids, adsorbed, preservat eva free, for adult use (2 Lf of tetanus toxoid and 2 Lf of diphtheri a toxoid) [facility] typhoid vaccine, live, oral 1 1997 Unknown, Provider [id number] 25 [place] (Inactive) ([place]) complet ed typhoid vaccine, live, oral DoD tuberculin skin test; purified protein derivative solution, intradermal 1 1997 Unknown, Provider [id number] 96 [place] ([place]) complet ed tuberculi n skin test; purified protein derivativ e solution, intraderm al DoD influenza virus vaccine, whole virus 1 1996 Unknown, Provider [id number] 16 [employer] (Inactive) ([place]) complet ed influenza virus vaccine, whole virus DoD hepatitis A vaccine, adult dosage 2 1996 Unknown, Provider 52 () complet ed hepatitis A vaccine, adult dosage DoD hepatitis A vaccine, adult dosage 2 1995 Unknown, Provider [id number] 52 [place] (Inactive) ([place]) complet ed hepatitis A vaccine, adult dosage DoD hepatitis A vaccine, adult dosage 1 1995 Unknown, Provider [id number] 52 [place] (Inactive) ([place]) complet ed hepatitis A vaccine, adult dosage [...] vaccine, adult dosage 3 1986 Unknown, Provider [id number] 43 [place] (Inactive) ([place]) complet ed hepatitis B vaccine, adult dosage [...] ADM Date DC Date Status Disposition Source [address] [place] [address] Jonathan [facility] Non-GME FHI1) OUTPATIENT [id number] JULIA Talbot 01/05 Released w/o Limitations [address] [place] [address] [facility]F amily Practic e Non-GME FHI1) [address] [place] [address] Jonathan [facility]) OUTPATIENT [id number] deploym ent NEHA Still 01/08 Released w/o Limitations [facility] Jonathan [facility] ([facility] [place]) [address] [place] [address] Jonathan [facility]am [facility] Non-GME FHI2) OUTPATIENT [id number] cough/c hest congest ion/fev er 101. x4days VANESSA LEVINE 07/10 Released w/o Limitations [facility] [employer] ([facility] [place]F amily Practic e Non-GME FHI2) [address] [place] [address] [employer] ([facility] [place]Fam [facility] Practice Non-GME FHI2) OUTPATIENT [id number] BELKIS Peñaloza 08/14 Released w/o Limitations [facility] [employer] ([facility] [place]F amily Practic e Non-GME FHI2) [address] [place] [address] [employer] [facility]Fam [facility] Practice Non-GME FHI2) TELE CONSULT [id number] Rx Renewed Lansopr azole 30MG TAYA MISTRY 10/[address] [place] [address] [employer] ([facility] [place]F amily Practic e Non-GME FHI2) [facility] [employer] [facility]Fam [facility] Practice Non-GME FHI1) OUTPATIENT [id number] COLD PLUS CONGEST ION JEREMY MCQUEEN 12/21 Released w/o Limitations [facility] [employer] ([facility] [place]F amily Practic e Non-GME FHI1) [address] [place] [address] [employer] ([facility] [place]Fam [facility] Practice Non-GME FHI2) OUTPATIENT [id number] SKIN TAGS UNDER ARM EVALUAT ION VANESSA LEVINE 03/23 Released w/o Limitations [facility] [employer] ([facility] [place]F amily Practic e Non-GME FHI2) [facility] [employer] [facility]Fam [facility] Practice Non-GME FHI2) OUTPATIENT [id number] RETIREM ENT JENNIFER PEÑA 07/27 Released w/o Limitations [facility] [employer] [facility]F amily Practic e Non-GME FHI2) [facility] [employer] ([facility] [place]Fam [facility] Practice Non-GME FHI1) TELE CONSULT [id number] [facility] TAYA Marquis 09/23 [facility] Jonathan [employer]RE[employer] ([facility] [place]F amily Practic e Non-GME FHI1) Procedures Combined list of: 1) Procedures from Department of Veterans Affairs facilities going back up to thelast 18 months, not all VA non-surgical procedures are included; 2) All procedures from the Department of Defense facilities. Procedure Procedure Type Code Date Perfomer Comments Teresa e Destruction Of Benign Lesion By Cryosurgery 03/23/2006 LAISHA LEVINE Destruction Of Benign Lesion By Any Method One Lesion 03/23/2006 VANESSA LEVINE Destruct Of Benign Lesion By Any Method Second Through 14 03/23/[address] Educational Services 01/08/2005 RICHARD ZAMORANO IS A [facility] Psychiatric Evaluation Review of Records and Reports Psychiatric Evaluation Review of Records and Reports [id number] 01/08/2005 BUDDY ZAMORANO A [facility] ELECTROCARDIOGRAM, ROUTINE ECG WITH AT LEAST 12 LEADS; INTERPRETATION AND REPORT ONLY 02/26/2004 DoD DESTRUCT (EG, LASER SURGERY, ELECTROSURGERY, CRYOSURGERY, CHEMOSURGERY, SURGICAL CURETTEMENT), PREMALIGNANT LESIONS (EG, ACTINIC KERATOSES); 2ND THRU 14 LESIONS, EA (LIST SEP ADDITION CD, 1ST LESION) 03/23/2006 [facility] VISUAL FIELD EXAMINATION, UNI OR BILATERAL, WITH MEDICAL DIAGNOSTIC EVAL; INTERMEDIATE EXAM (EG, AT LEAST 2 ISOPTERS ON GOLDMANN PERIMETER, OR SEMIQUANT, AUTO SUPRATHRESHOLD SCREEN PROGRAM, BAIRES 01/12/2005 [facility] PHYS/OTH QUALIFIED HEALTH SUPERVISOR MAPPING QUALIFIED,EDUCATION,TR AIN,LICENSURE/REGULATI ON (WHEN APPLICABLE) EDUC SER RENDERED TO PATS IN A GRP SETTING (EG,,OBESITY,O R DIABETIC INSTRUCT) 01/08/2005 [facility] PSYCHIATRIC DIAGNOSTIC INTERVIEW EXAMINATION 07/13/2001 [facility] PSYCHIATRIC DIAGNOSTIC INTERVIEW EXAMINATION 03/07/2001 [facility] THERAPEUTIC, PROPHYLACTIC OR DIAGNOSTIC INJECTION (SPECIFY MATERIAL INJECTED); SUBCUTANEOUS OR INTRAMUSCULAR 11/01/2000 [facility] VASOVASOSTOMY, VASOVASORRHAPHY 06/04/2000 [facility] ELECTROCARDIOGRAM, ROUTINE ECG WITH AT LEAST 12 LEADS; WITH INTERPRETATION AND REPORT 06/05/2004 [facility] URINALYSIS, BY DIP STICK OR [...] LABORATORY 11/04/2002 Do D PHYS/OTH QUALIFIED HEALTH SUPERVISOR MAPPING QUALIFIED,EDUCATION,TR ZAY,LICENSURE/REGULATI ON (WHEN APPLICABLE) EDUC SER RENDERED TO PATS IN A GRP SETTING (EG,,OBESITY,O R DIABETIC INSTRUCT) 08/31/2001 DoD PHYS/OTH QUALIFIED HEALTH SUPERVISOR MAPPING QUALIFIED,EDUCATION,TR AIN,LICENSURE/REGULATI ON (WHEN APPLICABLE) EDUC SER RENDERED TO PATS IN A GRP SETTING (EG,,OBESITY,O R DIABETIC INSTRUCT) 08/12/2001 DoD Social History Combined list of available smoking, tobacco, and other social history from Department of Defense and Veterans Affairs facilities. Social History Type Response Date Comment Sourc e This section is an empty social history section. DoD
--- OUTSIDE RECORDS SUMMARY | 2025-05-18 09:32 | XMS_ITS | Continuity of Care Document ---
Author Name [facility] Organization [facility] Care Team Providers Care Theoretical Physicist Name Role Phone 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 It does not include entries that were removed or entered in error. Problem Status Onset Date Problem Type Date of Resolution Comments Source Hearing Loss, Sensorineural, Unspecified Active Condition [facility] visit for: issue repeat prescription Inactive Condition DoD heartburn Active Condition DoD visit for: services physical Inactive Condition skilled nursing physical performed. DoD Blood Pressure Isolated Elevated [...] Known Allergies Drug allergy (disorder) active 09/23/2006 Pending sale to [facility] Immunizations Combined list of available immunizations from the Department of Defense and Veterans Affairs facilities. 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 purified surface antigen)-reti red CODE 1 2004 Unknown, Provider 15 Transcribed (TRS) complet ed influenza virus vaccine, split virus (incl. purified surface antigen)- retired CODE DoD anthrax vaccine 7 2004 Unknown, Provider [id number] [facility] [employer] [place] ([facility]) complet ed anthrax vaccine DoD typhoid vaccine, parenteral, other than acetone-kille d, dried 1 2004 Unknown, Provider [id number] [employer] Paste[employer] ([facility]) complet ed typhoid vaccine, parentera l, other than acetone-k illed, dried DoD influenza virus vaccine, split virus (incl. purified surface antigen)-reti red CODE 1 2004 Unknown, Provider [id number] San[employer] Paste[employer] ([facility]) complet ed influenza virus vaccine, split virus (incl. purified surface antigen)- retired CODE DoD anthrax vaccine 6 2003 Unknown, Provider [id number] [employer] [place] ([facility]) complet ed anthrax vaccine DoD tuberculin skin test; purified protein derivative solution, intradermal 1 2003 Unknown, Provider [id number] [place] ([place]) complet ed tuberculi n skin test; purified protein derivativ e solution, intraderm al DoD anthrax vaccine 5 2002 Unknown, Provider [id number] 24 [employer] [place] ([facility]) complet ed anthrax vaccine DoD influenza virus vaccine, whole virus 1 2002 Unknown, Provider [id number] 16 [employer] ([facility]) complet ed influenza virus vaccine, whole virus DoD tuberculin skin test; purified protein derivative solution, intradermal 1 2002 Unknown, Provider [id number] 96 [place] ([place]) complet ed tuberculi n skin test; purified protein derivativ e solution, intraderm al DoD anthrax vaccine 4 2002 Unknown, Provider [id number] 24 [employer] [place] ([facility]) complet ed anthrax vaccine DoD vaccinia (smallpox) vaccine 1 2002 Unknown, Provider [id number] [place] ([facility]) complet ed vaccinia (smallpox ) vaccine DoD typhoid Vi capsular polysaccharid e vaccine 1 2002 Unknown, Provider [id number] [employer] Paste[employer] ([facility]) complet ed typhoid Vi capsular polysacch aride vaccine DoD anthrax vaccine 3 2001 Unknown, Provider [id number] 24 [employer] [place] ([facility]) complet ed anthrax vaccine DoD anthrax vaccine 2 2001 Unknown, Provider [id number] [employer] [place] ([facility]) complet ed anthrax vaccine DoD meningococcal polysaccharid e vaccine (MPSV4) 1 2001 Unknown, Provider [id number] [place] ([place]) complet ed meningoco ccal polysacch aride vaccine (MPSV4) DoD influenza virus vaccine, whole virus 1 2001 Unknown, Provider [id number] 16 [employer] Paste[employer] ([facility]) complet ed influenza virus vaccine, whole virus DoD anthrax vaccine 1 2001 Unknown, Provider [id number] [facility] ([facility]) complet ed anthrax vaccine DoD tuberculin skin test; purified protein derivative solution, intradermal 1 2001 Unknown, Provider 96 () complet ed tuberculi n skin test; purified protein derivativ e solution, intraderm al DoD influenza virus vaccine, whole virus 1 2000 Unknown, Provider [id number] 16 [facility] ([place]) complet ed influenza virus vaccine, whole virus DoD tuberculin skin test; purified protein derivative solution, intradermal 1 2000 Unknown, Provider [id number] 96 [facility] complet ed tuberculi n skin test; purified protein derivativ e solution, intraderm al DoD influenza virus vaccine, whole virus 1 1999 Unknown, Provider 16 () complet ed influenza virus vaccine, whole virus DoD tuberculin skin test; purified protein derivative solution, intradermal 1 1999 Unknown, Provider [id number] 96 [facility] complet ed tuberculi n skin test; purified protein derivativ e solution, intraderm al DoD yellow fever vaccine 1 1999 Unknown, Provider [id number] 37 [facility] yellow fever vaccine DoD influenza virus vaccine, whole virus 3 1998 Unknown, Provider [id number] [facility] influenza virus vaccine, whole virus DoD tuberculin skin test; purified protein derivative solution, intradermal 1 1998 Unknown, Provider [id number] 96 [facility] ([place]) complet ed tuberculi n skin test; purified protein derivativ e solution, intraderm al DoD influenza virus vaccine, whole virus 2 1997 Unknown, Provider 16 () complet ed influenza virus vaccine, whole virus [facility] tetanus and diphtheria toxoids, adsorbed, preservative free, for adult use (2 Lf of tetanus toxoid and 2 Lf of diphtheria toxoid) 1 1997 Unknown, Provider 09 () complet ed tetanus and diphtheri a toxoids, adsorbed, preservat eva free, for adult use (2 Lf of tetanus toxoid and 2 Lf of diphtheri a toxoid) [facility] typhoid vaccine, live, oral 1 1997 Unknown, Provider [id number] 25 [employer] (Inactive) ([place]) complet ed typhoid vaccine, live, oral DoD tuberculin skin test; purified protein derivative solution, intradermal 1 1997 Unknown, Provider [id number] [place] ([place]) complet ed tuberculi n skin test; purified protein derivativ e solution, intraderm al DoD influenza virus vaccine, whole virus 1 1996 Unknown, Provider [id number] 16 [place] (Inactive[place] ([place]) complet ed influenza virus vaccine, whole virus DoD hepatitis A vaccine, adult dosage 2 1996 Unknown, Provider 52 () complet ed hepatitis A vaccine, adult dosage DoD hepatitis A vaccine, adult dosage 2 1995 Unknown, Provider [id number] 52 [place] ([place]active[place] ([place]) complet ed hepatitis A vaccine, adult dosage DoD hepatitis A vaccine, adult dosage 1 1995 Unknown, Provider [id number] 52 [place] ([place]active[place] ([place]) complet ed hepatitis A vaccine, adult dosage [...] vaccine, adult dosage 3 1986 Unknown, Provider [id number] 43 [place] ([place] ([place]) complet ed hepatitis B vaccine, adult dosage [...] ADM Date DC Date Status Disposition Source [address] [place] [address] Jonathan [facility] Non-GME FHI1) OUTPATIENT [id number] JULIA Talbot 01/05 Released w/o Limitations [address] [place] [address] [facility]F amily Practic e Non-GME FHI1) [address] [place] [address] Jonathan [facility]) OUTPATIENT [id number] deploym ent NEHA Still 01/08 Released w/o Limitations [facility] Jonathan MARTINB [place] [place] [address] [place] [address] Jonathan [facility] Non-GME FHI2) OUTPATIENT [id number] cough/c hest congest ion/fev er 101. x4days VANESSA LEVINE 07/10 Released w/o Limitations [facility] [employer] ([facility] [place]F amily Practic e Non-GME FHI2) [address] [place] [address] [employer] ([facility] [place]Fam [facility] Practice Non-GME FHI2) OUTPATIENT [id number] BELKIS Peñaloza 08/14 Released w/o Limitations [facility] [employer] ([facility] [place]F amily Practic e Non-GME FHI2) [address] [place] [address] [employer] [facility] Non-GME FHI2) TELE CONSULT [id number] Rx Renewed Lansopr azole 30MG TAYA MISTRY 10/[address] [place] [address] [employer] ([facility] [place]F amily Practic e Non-GME FHI2) [facility] [employer] [facility]Fam [facility] Non-GME FHI1) OUTPATIENT [id number] COLD PLUS CONGEST ION JEREMY MCQUEEN 12/21 Released w/o Limitations [facility] [employer] ([facility] [place]F amily Practic e Non-GME FHI1) [address] [place] [address] [employer] ([facility] [place]Fam de[facility] Practice Non-GME FHI2) OUTPATIENT [id number] SKIN TAGS UNDER ARM EVALUAT ION VANESSA LEVINE 03/23 Released w/o Limitations [facility] [employer] ([facility] [place]F amily Practic e Non-GME FHI2) [facility] [employer] [facility]Fam [facility] Non-GME FHI2) OUTPATIENT [id number] RETIREM ENT JENNIFER PEÑA 07/27 Released w/o Limitations [facility] [employer] [facility]F amily Practic e Non-GME FHI2) [facility] [employer] ([facility] [place]Fam dewey Practice Non-GME FHI1) TELE CONSULT [id number] [facility] TAYA Marquis 09/23 [facility] Jonathan GUTIERREZ ([facility] [place]F amily Practic e Non-GME FHI1) Procedures Combined [...] Educational Services 01/08/2005 RICHARD ZAMORANO IS A [facility] Psychiatric Evaluation Review of Records and Reports Psychiatric Evaluation Review of Records and Reports [id number] 01/08/2005 BUDDY ZAMORANO A [facility] ELECTROCARDIOGRAM, ROUTINE ECG WITH AT LEAST 12 LEADS; INTERPRETATION AND REPORT ONLY 02/26/2004 DoD DESTRUCT (EG, LASER SURGERY, ELECTROSURGERY, CRYOSURGERY, CHEMOSURGERY, SURGICAL CURETTEMENT), PREMALIGNANT LESIONS (EG, ACTINIC KERATOSES); 2ND THRU 14 LESIONS, EA (LIST SEP ADDITION CD, 1ST LESION) 03/23/2006 [facility] VISUAL FIELD EXAMINATION, UNI OR BILATERAL, WITH MEDICAL DIAGNOSTIC EVAL; INTERMEDIATE EXAM (EG, AT LEAST 2 ISOPTERS ON GOLDMANN PERIMETER, OR SEMIQUANT, AUTO SUPRATHRESHOLD SCREEN PROGRAM, BAIRES 01/12/2005 [facility] PHYS/OTH QUALIFIED HEALTH CMM PROGRAMMER QUALIFIED,EDUCATION,TR AIN,LICENSURE/REGULATI ON (WHEN APPLICABLE) EDUC SER RENDERED TO PATS IN A GRP SETTING (EG,,OBESITY,O R DIABETIC INSTRUCT) 01/08/2005 [facility] PSYCHIATRIC DIAGNOSTIC INTERVIEW EXAMINATION 07/13/2001 [facility] PSYCHIATRIC DIAGNOSTIC INTERVIEW EXAMINATION 03/07/2001 [facility] THERAPEUTIC, PROPHYLACTIC OR DIAGNOSTIC INJECTION (SPECIFY MATERIAL INJECTED); SUBCUTANEOUS OR INTRAMUSCULAR 11/01/2000 [facility] VASOVASOSTOMY, VASOVASORRHAPHY 06/04/2000 [facility] ELECTROCARDIOGRAM, ROUTINE ECG WITH AT LEAST 12 LEADS; WITH INTERPRETATION AND REPORT 06/05/2004 [facility] URINALYSIS, BY DIP STICK OR TABLET [...] LABORATORY 11/04/2002 Do D PHYS/OTH QUALIFIED HEALTH CMM PROGRAMMER QUALIFIED,EDUCATION,TR ZAY,LICENSURE/REGULATI ON (WHEN APPLICABLE) EDUC SER RENDERED TO PATS IN A GRP SETTING (EG,,OBESITY,O R DIABETIC INSTRUCT) 08/31/2001 DoD PHYS/OTH QUALIFIED HEALTH CMM PROGRAMMER QUALIFIED,EDUCATION,TR AIN,LICENSURE/REGULATI ON (WHEN APPLICABLE) EDUC SER [...]
--- OUTSIDE RECORDS SUMMARY | 2025-05-18 09:33 | XMS_ITS ---
Author Organization [address] Address [address] [place] [address] Care Team Providers Care Check Writer Name Role Phone Nicolás Barnes MD Unavailable [phone] David Lee MD Unavailable [phone] Annita Miranda Primary Care Provider [phone] Active Problems Problem Noted Date Diagnosed Date Annual physical exam 04/19/2025 Assessment & Plan (04/19/2025 10:53 AM CDT): Exercise 5 days a week, 30 mins per day recommended. Eat a heart healthy diet consisting of good, healthy protein (eggs, nuts, peanut butter, chicken, fish, turkey, less pork/beef), lots of vegetables, less carbohydrates and less sugar. Annual physical recommended. PCV20- next visit Shingrix- completed series today Hep c screen- ordered Cologuard- 08/2023 nml PSA- nml 03/2025 Essential (primary) hypertension 04/19/2025 Assessment & Plan (04/19/2025 10:53 AM CDT): Orders: lisinopriL (PRINIVIL,ZESTRIL) 20 mg tablet; Take 1 tablet (20 mg total) by mouth daily Comprehensive metabolic panel; Future Hyperlipidemia 04/19/2025 Assessment & Plan (04/19/2025 10:53 AM CDT): Orders: Comprehensive metabolic panel; Future Lipid panel; Future Assessment & Plan (04/19/2025 10:53 AM CDT): Orders: atorvastatin (LIPITOR) 10 mg tablet; Take 1 tablet (10 mg total) by mouth nightly Comprehensive metabolic panel; Future Lipid panel; Future History of peptic ulcer disease 01/29/2025 Assessment & Plan (04/19/2025 10:53 AM CDT): Assessment & Plan (01/29/2025 12:48 PM CDT): 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 Right neck dissection, levels II-IV 2. Right robotic-assisted oropharyngeal resection (right radical tonsillectomy, GT sulcus and BOT resection) 3. Left extra-capsular tonsillectomy 4. Right major vessel ligation (branches of ECA) 5. Pharyngoplasty 6. Flexible EGD with placement of feeding tube 7. Right thoracic duct ligation via transcervical approach Secondary malignant neoplasm lymph nodes of head, face and neck 12/22/2021 Assessment & Plan (04/19/2025 10:53 AM CDT): No new lymphadenopathy Managed by oncology/ENT, currently in remission. Surgical excision was curative. Did not need chemo or radiation. He gets CT scans every six-months. Gastro-esophageal reflux disease without esophag itis 12/13/2017 Assessment & Plan (04/19/2025 10:53 AM CDT): Orders: pantoprazole DR (PROTONIX) 40 mg EC tablet; Take 1 tablet (40 mg total) by mouth daily Assessment & Plan (01/29/2025 12:48 PM CDT): Class 3 severe obesity with serious comorbidity and body mass index (BMI) of 40.0 to 44.9 in adult 12/10/2017 Assessment & Plan (04/19/2025 10:53 AM CDT): BMI is too high. Patient has initiated some healthy lifestyle changes in his weight is down 3 lb. I urged him to continue to do this. We discussed high protein low carb diet and exercise. We briefly touched on medical management and at this time he wishes to hold off but we can discuss that further if he reaches a plateau Assessment & Plan (01/29/2025 12:48 PM CDT): Current Treatment and Therapy Plans No current plan information found. Past Treatment and Therapy Plans No past plan information found. Lifetime Dose Tracking * Chemical Lifetime Dose Automatic Entry Manual Entr y DLP 9,626 mGycm 9,626 mGycm 0 mGycm Resolved Problems Problem Noted Date Diagnosed Date Resolved Date BMI 36.0-36.9,adult 12/10/2017 04/19/20 25 BMI 38.0-38.9,adult 12/10/2017 04/19/20 25
--- OUTSIDE RECORDS SUMMARY | 2025-05-18 09:33 | XMS_ITS | Clinical Summary ---
Author Organization [address] Address [address] [address] Care Team Providers Care Entry Level Marketing Representative Name Role Phone Nicolás Barnes MD Unavailable [phone] David Lee MD Unavailable [phone] Annita Miranda Primary Care Provider [phone] Allergies No known active allergies Medications cholecalciferol, vitamin D3, (VITAMIN D3 ORAL) Take 10,000 Units by mouth every morning Active multivit-min/jessie us fumarate (MULTI VITAMIN ORAL) Take 1 tablet by mouth every morning Active meloxicam (MOBIC) 15 mg tabletIndications: Bilateral foot pain TAKE 1 TABLET DAILY 90 tablet 3 09/15/20 24 Active cyclobenzaprine (FLEXERIL) 10 mg tabletIndications: Cervical radiculopathy at C5 Take 1 tablet (10 mg total) by mouth 3 (three) times a day as needed for muscle spasms 30 tablet 04/05/20 25 025 Active atorvastatin (LIPITOR) 10 mg tabletIndications: Mixed hyperlipidemia Take 1 tablet (10 mg total) by mouth nightly 90 tablet 1 04/19/20 25 Active lisinopriL (PRINIVIL,ZESTRIL) 20 mg tabletIndications: Essential (primary) hypertension Take 1 tablet (20 mg total) by mouth daily 90 tablet 1 04/19/[address] (PROTONIX) 40 mg EC tabletIndications: Gastro-esophageal reflux disease without esophagitis Take 1 tablet (40 mg total) by mouth daily 90 tablet 3 04/19/[address] (PROTONIX) 40 mg EC tabletIndications: Gastro-esophageal reflux disease without esophagitis TAKE 1 TABLET DAILY 90 tablet 3 05/26/20 24 025 Discontinu ed(Reorder ) fluticasone propionate (FLONASE) 50 mcg/actuation nasal spray Administer 2 sprays into each nostril daily 1 each 3 12/05/19 25 025 Discontinu ed(Therapy completed) lisinopriL (PRINIVIL,ZESTRIL) 20 mg tabletIndications: Uncontrolled hypertension Take 1 tablet (20 mg total) by mouth daily 30 tablet 1 04/05/20 25 025 Discontinu ed(Reorder ) methylPREDNISolone (MEDROL DOSEPACK) 4 mg DosepackIndication s:Cervical radiculopathy at C5 Take as directed on package. 21 tablet 04/19/20 25 025 Active Problems Problem Noted Date Diagnosed Date [...] mass 12/29/2021 Overview (01/16/2022): NAME OF PROCEDURE ([facility] 01/09/2022): 1. Right neck dissection, levels II-IV [...] Assessment & Plan (01/29/2025 12:48 PM CDT): Resolved Problems Problem Noted Date Diagnosed Date Resolved Date BMI 36.0-36.9,adult 12/10/2017 04/19/20 25 BMI 38.0-38.9,adult 12/10/2017 04/19/20 25 Encounters Date Type Department Care Team Description 04/19/2025 9:30 AM CDT Office Visit [address] [phone] Annita Miranda PA Annual physical exam (Primary Dx); Cervical radiculopathy at C5; Acute pain of right shoulder; Hyperlipidemia, unspecified hyperlipidemia type; Essential (primary) hypertension; Mixed hyperlipidemia; Class 3 severe obesity with serious comorbidity and body mass index (BMI) of 40.0 to 44.9 in adult; History of peptic ulcer disease; Gastro-esophageal reflux disease without esophagitis; Encounter for hepatitis C screening test for low risk patient; Need for vaccination; Secondary malignant neoplasm lymph nodes of head, face and neck (HCC) 04/09/[address] [phone] Annita Miranda PA 04/05/2025 2:30 PM CDT Office Visit [address] [phone] Annita Miranda PA Cervical radiculopathy at C5 (Primary Dx); Neck pain; Acute pain of right shoulder; Uncontrolled hypertension; Hyperglycemia; Screening, ischemic heart disease; Screening for diabetes mellitus; Screening for blood disease; Screening PSA (prostate specific antigen) from Last 3 Months Immunizations Immunization Administration Dates Next Due Anthrax 04/10/2005, 4,08/17/2003,02/14,09/11/2002,08/28/2002,08/14/2002 Hep A, Adult 07/17/1997,07/17/1996,07/11/1996 Hep B Vaccine 02/06/1987 Influenza, Quadrivalent, Spl it, Preservative Free, Intramuscular 07/16/2023 Influenza, Split 08/11/2005,11/14/2004 Influenza, Trivalent, Preser vative Free, Intramuscular 07/11/2024 Influenza, Unspecified 06/20/2024(Deferr ed: Patient Refused),07/02/2023,09/02/2022(Deferre d: Patient Refused),06/27/2021,06/27/2020 Influenza, Whole 07/23/2003, 2,08/16/2001,09/13,07/14/1999,07/16/1998,07/27/1997 MMR 05/11/1987 Meningococcal Polysaccharide (Menomune) 08/17/2002 OPV 05/11/1987 PPD TEST 10/16/2003, 3,01/30/2002,02/08,02/13/2000,02/03/1999,12/04/1997 [employer] SARS-CoV-2 Monovalent Vaccination (12+ Yrs) PURPLE 07/11/2021,10/04/2020,09/13/2020 Smallpox 12/25/2002 Td, adsorbed 12/06/1997 Tdap 08/06/2023 Typhoid H-P SQ/ID 01/05/2005 Typhoid Inactivated 11/28/2002 Typhoid Live 12/06/1997 Yellow Fever 01/14/2000,09/06/1989 ZOSTER Recombinant 04/19/2025,06/20/2024 Surgical History Surgery Date Site/Laterality Comments VASECTOMY WISDOM TOOTH EXTRACTION Medical History Medical History Date Comments GERD (gastroesophageal reflux disease) Seasonal allergies Cancer (HCC) Motion sickness Dental disease Tinnitus HPV in male Family History Medical History Relation Name Comments No Known Problems Brother No Known Problems Father Hypertension Maternal Grandfather Hypertension Maternal Grandmother Hypertension Mother No Known Problems Paternal Grandfather No Known Problems Paternal Grandmother Hypertension Sister Anesthesia problems Neg Hx Relation Name Status Comments Brother Father Maternal Grandfather Maternal Grandmother Mother Paternal Grandfather Paternal Grandmother Sister Social History Tobacco Use Types Packs/Day Years Used Date Smoking Tobacco: Never Smokeless Tobacco: Never Tobacco Cessation:Counseling Given: Not Answered Social Connection and Isolation Panel Answer Date Recorded In a typical week, how many times do you talk on the phone with family, friends, or neighbors? Patient declined 01/07/2022 How often do you get togethe r with friends or relatives? Patient declined 01/07/2022 How often do you attend voodoo or restorationist serv ices? Patient declined 01/07/2022 Do you belong to any clubs o r organizations such as voodoo groups, unions, fraternal or athletic groups, or school groups? Patient declined 01/07/2022 How often do you attend meet ings of the clubs or organizations you belong to? Patient declined 01/07/2022 Are you , , di vorced, , never , or living with a partner? Patient declined 01/07/2022 AUDIT-C Answer Date Recorded Q1: How often do you have a drink containing alcohol? Never 04/19/2025 Q2: How many drinks containi ng alcohol do you have on a typical day when you are drinking? Patient does not drink Q3: How often do you have si x or more drinks on one occasion? Never 04/19/2025 Overall Financial Resource Strain (CARDIA) Answe r Date Recorded How hard is it for you to pa y for the very basics like food, housing, medical care, and heating? Not hard at all 01/07/2022 PHQ-2 Answer Date Recorded PHQ-2 Total Score (If total score is 3 or more points, staff should administer the PHQ-9) 0 04/19/2025 Hunger Vital Sign Answer Date Recorded Within [...] place to sleep or slept in a nursing home (including now)? No 01/07/2022 Sex and Gender Information Value Date Recorded Sex Assigned at Not on file Legal Sex Male 2:20 AM ROVER TENDER Gender Identity Not on file Sexual Orientation Not on file Obstetrics History Last Filed Vital Signs Vital Sign Reading Time Taken Comments Blood Pressure 124/86 04/19/2025 9:30 AM CDT Pulse 91 04/19/2025 9:30 AM CDT Temperature 36.6 C (97.9 F) 04/19/2025 9:30 AM CDT Respiratory Rate 16 04/19/2025 9:30 AM CDT Oxygen Saturation 98% 04/19/2025 9:30 AM CDT Inhaled Oxygen Concentration - - Weight 130.8 kg (288 lb 6.4 oz) 04/19/2025 9:30 AM CDT Height 180.3 cm (5' 11) 04/19/2025 9:30 AM CDT Body Mass Index 40.22 04/19/2025 9:30 AM CDT Plan of Treatment Health Maintenance Due Date Last Done Comments Hepatitis C Screening 1966 Pneumococcal vaccine <65 (1 of 2 - PCV) 1985 Covid-19 Vaccine (2023-2 5 season) 2024 08/07/2022, 07/11/2021, 10/04/2020, Additional history exists Influenza Vaccine (#1) 2025 , 07/16/2023, 07/02/2023, Additional history exists Prostate Cancer Screening-PSA 08/09/2025 08/09/2023 Depression Screening 04/19/2026 04/19/2025, 04/05/2025, 01/29/2025, Additional history exists Regular Well Visit/Exam 18-64 04/19/2026, 08/06/2023, 08/06/2023 Colon Cancer Screening-DNA Stool 09/04/2026 09/04/20 23 DTaP/Tdap/Td Vaccine (2 - Td or Tdap) 08/06/2033 08/06/2023, 12/06/1997 Hepatitis B Screening Completed 02/06/1987 Zoster Vaccine Completed 04/19/2025, 06/20/2024 Procedures Procedure Name Priority Date/Time Associated Diagnosis Comments STOOL DNA COLOGUARD Routine 09/04/2023 10:30 AM ROVER TENDER Screening for colon cancer PSA, TOTAL Routine 08/09/2023 from Last 3 Months or Most Recently Relevant to Health Maintenance Results * Stool DNA - Cologuard (09/04/2023 10:30 AM ROVER TENDER) Pathologist [facility] Stool DNA - Cologuard Negative Negative [employer] (CLIA #:[id number]) Comment: NEGATIVE TEST RESULT. A negative Cologuard [...] (Aquilino Loredo al, N Engl J Med 2014;370(14):0620-3872) The normal value (reference range) for this assay is negative. COLOGUARD RE-SCREENING RECOMMENDATION: Periodic colorectal cancer screening is an important part of preventive healthcare for asymptomatic individuals at average risk for colorectal cancer. Following a negative Cologuard result, the [place] [employer] Society and U.S. Multi-Society Task Force screening guidelines recommend a Cologuard re-screening interval of 3 years. References: [place] [employer] Guideline for Colorectal Cancer Screening: https://www.cancer.org/cancer/imoek-cvovan-zbwjcw/phpljjspz-kllzvqbit-dbzwjlu/ac s-rec ommendations.html.; Elvin DK, Orin DENISE, Uziel DAVID, Colorectal Cancer Screening: Recommendations for Physicians and Patients from the U.S. Multi-Society Task Force on Colorectal Cancer Screening , Am J Gastroenterology 2017; 112:6196-7351. TEST DESCRIPTION: Composite algorithmic analysis of stool [...] (Aquilino Loredo al, N Engl J Med 2014;370(14):3104-6316.) Cologuard may produce a false negative or false positive result (no colorectal cancer or precancerous polyp present at colonoscopy follow up). A negative Cologuard test result does not guarantee the absence of CRC or advanced adenoma (pre-cancer). The current Cologuard screening interval is every 3 years. ([place] [employer] and U.S. Multi-Society Task Force). Cologuard performance data in a 10,000 patient pivotal study using colonoscopy as the reference method can be accessed at the following location: www.Ninjathat/results. Additional description of the Cologuard test process, warnings and precautions can be found at www.cologuard.com. Stool 09/04/2023 10:3 0 AM ROVER TENDER 09/05/2023 11:51 PM ROVER TENDER Jonathan Solis MD LAB BODY FLUIDS AND STOOLS ORDERABLES Final Result [facility] (CLIA #:[id number]) [place] [address] * PSA, total Blood (08/09/2023) SCRIBED PSA, Total 0.3 <4.0 - <4.0 Blood 08/09/2023 Historical Provider LAB BLOOD ORDERABLES Aisha l Result from Last 3 Months or Most Recently Relevant to Health Maintenance Insurance [facility] Advance Directives For more information, please contact: [phone] * Full Code (Latest Code Status on File) Date Activated Date Inactivated Comments 01/16/2022 9:28 AM 01/18/2022 6:42 PM * Full Code Date Activated Date Inactivated Comments 01/09/2022 2:04 PM 01/11/2022 5:07 PM Care Teams Entry Level Marketing Representative Relationship Specialty Start Date End Date Annita Miranda PA [facility] [address] [place] [address] PCP - General Family Medicine 01/29/25 Nicolás Barnes MD [address] [facility] [address] [place] [address] Medical Oncologist/Biofuels Technology Manager Medical Oncology 12/17/21 David Lee MD [address] [facility] [address] [place] [address] Consulting Physician Otolaryngology 12/26/21
--- OUTSIDE RECORDS SUMMARY | 2025-05-18 09:33 | XMS_ITS | Clinical Summary ---
Author Organization [facility] Address Formerly [facility], [id number] [place] [address] Care Team Providers Care Science Job Titles Name Role Phone Unavailable Primary Care Provider [...]
[2025-05-18 09:38] VITALS: BP 152/97; PULSE 59; RESP 17; TEMP 35.6; O2SAT 100
--- NOTE | 2025-05-18 09:44 | ED.NAVMDI ---
HPI - Nausea/Vomiting/Diarrhea General Chief complaint: Nausea/Vomiting/Diarrhea Stated complaint: Sore Neck/Dizzy/Nausea Related Data Home Medications ?Medication ?Instructions ?Recorded ?Confirmed ?Last Taken ?Type pantoprazole 40 mg tablet,delayed 40 mg PO QAM 01/15/22 05/18/25 Unknown History release atorvastatin 10 mg tablet mg 05/18/25 Unknown History lisinopril 20 mg tablet mg 05/18/25 Unknown History meloxicam 15 mg tablet mg 05/18/25 Unknown History Allergies Allergy/AdvReac Type Severity Reaction Status Date / Time No Known Allergies Allergy Verified 05/18/25 09:36 [facility] Past Medical History Medical History Throat cancer Surgical History Surgical History Hx of tonsillectomy Social History Social History Alcohol intake: never Course Vital Signs Vital signs: Vital Signs Temperature 96.0 F L 05/18/25 09:38 Pulse Rate 59 L 05/18/25 09:38 Respiratory Rate 17 05/18/25 09:38 Blood Pressure 152/97 H 05/18/25 09:38 Pulse Oximetry 100 05/18/25 09:38 Oxygen Delivery Room Air 05/18/25 09:38 Temperature 96.0 F L 05/18/25 09:38 Pulse Rate 59 L 05/18/25 09:38 Respiratory Rate 17 05/18/25 09:38 Blood Pressure 152/97 H 05/18/25 09:38 Pulse Oximetry 100 05/18/25 09:38 Oxygen Delivery Room Air 05/18/25 09:38 Discharge Plan Discharge Patient Language: Slovak Prescriptions: No Action atorvastatin 10 mg tablet meloxicam 15 mg tablet lisinopril 20 mg tablet pantoprazole 40 mg Tablet,Delayed Release (Dr/Ec) 40 mg PO QAM Follow-up/Referrals: Ruben,DEDE Ariza [Primary Care Provider, Unknown]
--- NOTE | 2025-05-18 10:01 | ED_ITS ---
HPI - General Adult General Chief complaint: Nausea/Vomiting/Diarrhea Stated complaint: Sore Neck/Dizzy/Nausea Time Seen by Provider: 05/18/25 09:54 Mode of arrival: ambulatory Limitations: no limitations History of Present Illness HPI narrative: 59-year-old male presents with concern for right-sided neck pain. Reports he slept in a recliner last night and woke up with right-sided neck pain. Reports it hurts to turn his neck towards the right. Reports he took a Percocet. Reports when he was in a meeting he noticed that when he turns his head towards the right he felt dizzy which also made him nauseous. He denies vomiting or abd ominal pain. He reports a history of vertigo. He denies any injury or trauma to his neck. MD complaint: Neck pain Related Data Home Medications ?Medication ?Instructions ?Recorded ?Confirmed ?Last Taken ?Type pantoprazole 40 mg tablet,delayed 40 mg PO QAM 2 05/18/25 Unknown History release atorvastatin 10 mg tablet mg 05/18/25 Unknown History lisinopril 20 mg tablet mg 05/18/25 Unknown History meloxicam 15 mg tablet mg 05/18/25 Unknown History Allergies Allergy/AdvReac Type Severity Reaction Status Date / Time No Known Allergies Allergy Verified 05/18/25 09:36 Review of Systems Review of Systems: CONSTITUTIONAL: Denies malaise, chills, sweats, or fever. EYES: Denies visual changes ENT: Denies rhinorrhea, congestion, sinus pain, otalgia or sore throat. CARDIOVASCULAR: Denies chest pain, palpitations, or edema. GASTROINTESTINAL: Denies abdominal pain, vomiting, diarrhea. Reports nausea accompanied by dizziness MUSCULOSKELETAL: Reports right-sided neck pain NEUROLOGIC: Denies numbness, weakness, or headache. All systems reviewed & are unremarkable except as noted in HPI and below [facility] Past Medical History Medical History Throat cancer Surgical History Surgical History Hx of tonsillectomy Social History Social History Alcohol intake: never Comments At time of signature, agree with nursing past medical, surgical, social and family history. There is no relevant family history pertinent to the presenting complaint Exam Narrative: GENERAL: Well-appearing, well-nourished, and in no acute distress. HEAD: Normocephalic, atraumatic. EYES: PERRLA, sclera clear, and EOMI. No nystagmus. ENT: Nares clear. Mucous membranes moist. TM pearly moss with sharp light reflex bilaterally; no tragal tenderness. Oropharynx without erythema or lesions. Tonsils not enlarged and without exudate. NECK: Supple. No lymphadenopathy. No jugular venous distension, thyromegaly, or carotid bruits. Carotids were easily palpable bilaterally. CHEST: No respiratory distress. Clear to auscultation. No bony deformities, no asymmetry. Speaks in full sentences. HEART: Regular rate and rhythm. No murmur heard. Normal peripheral pulses. EXTREMITIES: Normal range of motion. No edema. Normal strength and sensation. No midline neck tenderness, no paraspinal tenderness. SKIN: Warm, dry, no visible rash. NEURO: Alert and oriented x3. No focal deficits. Cranial nerves II through XII grossly intact PSYCH: Normal mood and affect Course Course Emergency Course: Patient is aware of diagnosis, understands and agrees to treatment plan. Anticipatory guidance given. Patient agrees to follow-up as directed and is aware of reasons to seek care at the emergency department. Portions of this record may have been created with voice recognition software Level of Care: Express Care Visit Vital Signs Vital signs: Vital Signs Temperature 96.0 F L 05/18/25 09:38 Pulse Rate 59 L 05/18/25 09:38 Respiratory Rate 17 05/18/25 09:38 Blood Pressure 152/97 H 05/18/25 09:38 Pulse Oximetry 100 05/18/25 09:38 Oxygen Delivery Room Air 05/18/25 09:38 Temperature 96.0 F L 05/18/25 09:38 Pulse Rate 59 L 05/18/25 09:38 Respiratory Rate 17 05/18/25 09:38 Blood Pressure 152/97 H 05/18/25 09:38 Pulse Oximetry 100 05/18/25 09:38 Oxygen Delivery Room Air 05/18/25 09:38 Reviewed. Medical Decision Making MDM Narrative Medical decision making narrative: The patient was evaluated by myself in the [facility] care. History is obtained from patient who is an independent historian and physical exam was performed.? Available medical records were reviewed at this time. ? Exam findings show no acute concerns or changes; patient is non-toxic appearing and is in no distress. Patient is appropriate for outpatient treatment and follow-up. ? I have evaluated and discussed social determinants of health with the patient that could potentially impact subsequent diagnosis and treatment plans. ? Differential diagnosis and treatment plan were discussed with the patient. Patient agrees with discussion and after shared medical decision making agrees with plan of care. All questions were answered to the patient's satisfaction. Vital Signs Vital Signs: Vital Signs Temperature 96.0 F L 05/18/25 09:38 Pulse Rate 59 L 05/18/25 09:38 Respiratory Rate 17 05/18/25 09:38 Blood Pressure 152/97 H 05/18/25 09:38 Pulse Oximetry 100 05/18/25 09:38 Oxygen Delivery Room Air 05/18/25 09:38 Temperature 96.0 F L 05/18/25 09:38 Pulse Rate 59 L 05/18/25 09:38 Respiratory Rate 17 05/18/25 09:38 Blood Pressure 152/97 H 05/18/25 09:38 Pulse Oximetry 100 05/18/25 09:38 Oxygen Delivery Room Air 05/18/25 09:38 Critical Care Time Critical Care Time Critical Care Time: No Discharge Plan Discharge Clinical Impression: Cervical strain Patient Disposition: Home Condition: Stable Instructions: Cervical Strain (ED) Additional Instructions: Please follow up with your Primary Care Doctor within 48-72 hours - call for an appointment. Activity as tolerated. Take prednisone, take muscle relaxers every 8 hours as needed for muscle spasm- do not drive or make any important decisions while on this medication for it can make you drowsy. You may apply ice to the area as needed. If you experience any worsening pain, swelling, numbness, weakness please go to ER. Patient Language: Irish Prescriptions: New cyclobenzaprine 10 mg tablet 10 mg PO TID PRN (Reason: muscle spasm) Qty: 20 0RF prednisone 50 mg tablet 50 mg PO DAILY 5 Days Qty: 5 0RF ondansetron 4 mg tablet,disintegrating 4 mg PO Q8H PRN (Reason: nausea and vomiting) Qty: 10 0RF No Action atorvastatin 10 mg tablet meloxicam 15 mg tablet lisinopril 20 mg tablet pantoprazole 40 mg Tablet,Delayed Release (Dr/Ec) 40 mg PO QAM Follow-up/Referrals: Ruben,DEDE Ariza [Primary Care Provider, Unknown] Time of Disposition: 10:03
[2025-05-18 10:04] LABS: EDCOVIDSCREEN Negative (Negative)
== END 2025-05-18 10:08 | disposition home or self-care (01) ==
PROVIDERS: Emergency Provider Nurse Practitioner; PCP Physician Assistant
DX: S16.1XXA Strain of muscle, fascia and tendon at neck level, initial encounter (principal); X50.1XXA Overexertion from prolonged static or awkward postures, initial encounter; Z20.822 Contact with and (suspected) exposure to COVID-19; Z85.818 Personal history of malignant neoplasm of other sites of lip, oral cavity, and pharynx
CPT/HCPCS: 87426; 99213; G0463

== ENCOUNTER 2025-07-10 06:49 | Outpatient (CLI) | payer OTHER, SELFPAY ==
--- OUTSIDE RECORDS SUMMARY | 2025-07-10 06:53 | XMS_ITS ---
Author Organization [address] Address [address] [place] [address] Care Team Providers Care Pointer Helper Name Role Phone Nicolás Barnes MD Unavailable [phone] David Lee MD Unavailable [phone] Annita Miranda Primary Care Provider [phone] Active Problems Problem Noted Date Diagnosed Date [...] Dose Automatic Entry Manual Entr y DLP 11,558 mGycm 11,558 mGycm 0 mGycm Resolved Problems Problem Noted Date Diagnosed Date Resolved Date BMI 36.0-36.9,adult 12/10/2017 04/19/20 25 BMI 38.0-38.9,adult 12/10/2017 04/19/20 25
--- OUTSIDE RECORDS SUMMARY | 2025-07-10 06:53 | XMS_ITS | Clinical Summary ---
Author Organization [facility] Address [facility] [place] [address] Care Team Providers Care Post Secondary Professional Name Role Phone Unavailable Primary Care Provider [...] 2) 2016 COVID-19 Vaccine (2023-2 5 season) 2025 Influenza Adult (#1) 2025 Meningococcal B Vaccine Aged Out No l onger eligible based on patient's age to complete this topic Meningococcal Vaccine Aged Out No norberto romel eligible based on patient's age to complete this topic RSV Immunizations Under 20 Months Aged Out No longer eligible based on patient's age to complete this topic
--- OUTSIDE RECORDS SUMMARY | 2025-07-10 06:53 | XMS_ITS | Encounter Summary ---
Author Organization [facility] Address [address] [place] [address] Phone Care Team Providers Care Catering Barista Name Role Phone Nicolás Barnes MD Unavailable [phone] David Lee MD Unavailable [phone] Annita Miranda Primary Care Provider [phone] Encounter Details Date Type Department Care Team (Latest Contact Info) Description 06/11/2025 Results Follow-Up [facility] Medicine Otolaryngology Head-Neck Division [address] [facility] [address] [place] [address] Fany Shi PA [facility] [facility] [address] [place] [address] CT Chest with Contrast, CT Neck Soft Tissue W Contrast Social History Tobacco Use Types Packs/Day Years Used Date Smoking Tobacco: Never Smokeless Tobacco: Never Social Connection and Isolation Panel Answer Date Recorded In a typical week, how many times do you talk on the phone with family, friends, or neighbors? Patient declined 01/07/2022 How often do you get togethe r with friends or relatives? Patient declined 01/07/2022 How often do you attend christianity or worship serv ices? Patient declined 01/07/2022 Do you belong to any clubs o r organizations such as christianity groups, unions, fraternal or athletic groups, or [...] place to sleep or slept in a prison (including now)? No 01/07/2022 Sex and Gender Information Value Date Recorded Sex Assigned at Not on file Legal Sex Male 2:20 AM IDEA MAN Gender Identity Not on file Sexual Orientation Not on file documented as of this encounter Plan of Treatment Not on file documented as of this encounter Visit Diagnoses Not on filedocumented in this encounter Care Teams Catering Barista Relationship Specialty Start Date End Date Annita Miranda PA [address] [place] [address] PCP - General Family Medicine 01/29/25 Nicolás Barnes MD [address] [facility] [address] [place] [address] Medical Oncologist/Food Service Hotel Runner Medical Oncology 12/17/21 David Lee MD [address] [facility] [address] [place] [address] Consulting Physician Otolaryngology 12/26/21 documented as of this encounter
[2025-07-10 08:02] LABS: Alanine Aminotransferase 28 U/L (6-50); Albumin Level 4.2 g/dL (3.5-5.1); Alkaline Phosphatase 93 U/L (38-126); Anion Gap 8 mmol/L (4-12); Aspartate Amino Transferase 36 U/L (17-59); Bilirubin,Total 0.8 mg/dL (0.2-1.3); Blood Urea Nitrogen 24 mg/dL (9-20); Calcium 9.2 mg/dL (8.4-10.2); Carbon Dioxide 27 mmol/L (22-30); Chloride 103 mmol/L (98-107); Cholesterol 176 mg/dL (0-200); Estimated Glomerular Filt Rate > 60; Glucose 107 mg/dL (65-110); HDL Direct 37 mg/dL; Potassium 4.3 mmol/L (3.4-5.0); Sodium 138 mmol/L (137-145); Total Protein 7.2 g/dL (6.3-8.2); Triglycerides 99 mg/dL (<150)
== END 2025-07-10 06:50 | disposition home or self-care (01) ==
LOC: ANHLAB 06:52
PROVIDERS: PCP Physician Assistant; Visit Provider Physician Assistant
DX: E78.2 Mixed hyperlipidemia (principal); I10 Essential (primary) hypertension; Z11.59 Encounter for screening for other viral diseases
CPT/HCPCS: 36415; 80053; 80061; 86803